=== PATIENT | male | born 1955 | race Caucasian/White ===

== ENCOUNTER → 2020-07-03 | Outpatient (CLI) | payer MEDICARE ==
[2020-07-03 11:45] LABS: HCT 42.2 % (39.0-53.0); MCH 29.3 pg (25.0-35.0); MCV 88.6 fL (80.0-100.0); Mean Platelet Volume 8.1; Platelet Count 330 k/uL (150-450); RBC 4.77 m/uL (4.30-5.90); RDW 13.8 % (11.5-15.5); WBC 14.2 k/uL (3.8-10.6)
[2020-07-03 11:55] LABS: Potassium 4.9 mmol/L (3.5-5.1)
== END | disposition home or self-care (01) ==
LOC: LABPAT 10:32
PROVIDERS: ATTEND Internal Medicine Interventional Cardiology
DX: Z01.818 Encounter for other preprocedural examination (principal); R94.39 Abnormal result of other cardiovascular function study
CPT/HCPCS: 36415; 80051; 82565; 84520; 85027

== ENCOUNTER → 2020-08-17 | Outpatient (CLI) | payer MEDICARE | END | disposition home or self-care (01) | LOC: LABWHC1 12:56 | PROVIDERS: ATTEND Internal Medicine Interventional Cardiology | DX: Z01.810 Encounter for preprocedural cardiovascular examination (principal) | CPT/HCPCS: U0003; C9803 ==

== ENCOUNTER → 2020-08-31 | Outpatient (CLI) | payer MEDICARE ==
[2020-08-31 20:01] LABS: African American GFR (CKD) 72.1 (60.0-200.0); Anion Gap 8.3 mmol/L (4.00-12.00); BUN/Creat Ratio 22.5 Ratio (12.00-20.00); Calcium 8.9 mg/dL (8.7-10.3); Carbon Dioxide 24.7 mmol/L (21.6-31.8); Non-African American GFR(CKD) 62.2 (60.0-200.0); Potassium 4.4 mmol/L (3.5-5.5)
== END | disposition home or self-care (01) ==
LOC: LABWHC1 11:19
PROVIDERS: ATTEND Internal Medicine Interventional Cardiology
DX: Z01.812 Encounter for preprocedural laboratory examination (principal); I25.118 Atherosclerotic heart disease of native coronary artery with other forms of angina pectoris
CPT/HCPCS: 80048; 36415; U0003; C9803

== ENCOUNTER → 2021-08-29 | Outpatient (CLI) | payer MEDICARE ==
[2021-08-29 18:31] LABS: HCT 34.5 % (39.6-50.0); HGB 10.7 g/dL (13.0-17.0); MCV 93.5 fL (80.0-97.0); Mean Platelet Volume 11.4 fL (9.5-12.2); NRBC Per 100 WBC 0 /100 WBCS (0.0-0.0); Platelet Count 245 X 10*3/uL (140-440); RBC 3.69 X 10*6/uL (4.40-5.60); RDW 14.2 % (11.5-14.5); WBC 8.52 X 10*3/uL (4.50-10.00)
[2021-08-29 18:35] LABS: Anion Gap 12.6 mmol/L (10.00-18.00); Blood Urea Nitrogen 21.3 mg/dL (9.0-27.0); Carbon Dioxide 21.6 mmol/L (20.0-27.5); Non-African American GFR(CKD) 66.4 (60.0-200.0)
[2021-08-30 13:15] LABS: Coronavirus SARS CoV-2 Not Detected (Not Detected)
== END | disposition home or self-care (01) ==
LOC: LABPAT 11:20
PROVIDERS: ATTEND Internal Medicine Interventional Cardiology
DX: Z01.812 Encounter for preprocedural laboratory examination (principal); I35.0 Nonrheumatic aortic (valve) stenosis; Z20.822 Contact with and (suspected) exposure to COVID-19
CPT/HCPCS: 80051; 82565; 84520; 85027; 36415; U0003; C9803; U0005

== ENCOUNTER → 2021-09-13 | Outpatient (CLI) | payer MEDICARE ==
[2021-09-13 10:30] LABS: Basophils # (A) 0.1 k/uL (0-0.2); Basophils % (A) 1 %; Eosinophils # (A) 0.3 k/uL (0-0.7); Eosinophils % (A) 4 %; HCT 36.5 % (39.0-53.0); HGB 12.2 gm/dL (13.0-17.5); Lymphocytes # (A) 1.8 k/uL (1.0-4.8); Lymphocytes % (A) 24 %; MCH 31.1 pg (25.0-35.0); MCHC 33.4 g/dL (31.0-37.0); MCV 93.2 fL (80.0-100.0); Mean Platelet Volume 8.4; Monocytes # (A) 0.4 k/uL (0-1.0); Monocytes % (A) 5 %; Neutrophils # (A) 4.8 k/uL (1.3-7.7); Neutrophils % (A) 64 %; Platelet Count 259 k/uL (150-450); RBC 3.91 m/uL (4.30-5.90); RDW 13.9 % (11.5-15.5); WBC 7.5 k/uL (3.8-10.6)
[2021-09-13 10:34] LABS: Appearance,Urine Clear (Clear); Bilirubin,Urine Negative (Negative); Blood,Urine Negative (Negative); Color,Urine Yellow; Glucose,Urine (UA) Negative (Negative); Ketones,Urine Negative (Negative); Leukocyte Esterase,Urine Negative (Negative); Nitrite,Urine Negative (Negative); PH, Urine 5.5 (5.0-8.0); Protein,Urine Negative (Negative); Urobilinogen,Urine <2.0 mg/dL (<2.0)
[2021-09-13 10:39] LABS: INR 0.9 (<1.2); Partial Thromboplastin Time 26.2 sec (22.0-30.0); Prothrombin Time 9.9 sec (9.0-12.0)
[2021-09-13 10:42] LABS: ALT 29 U/L (4-49); AST 29 U/L (17-59); African American GFR (CKD) 73 (>60 ml/min/1.73 sqM); Albumin 4.4 g/dL (3.5-5.0); Albumin/Globulin Ratio 1.5; Alkaline Phosphatase 108 U/L (38-126); Anion Gap 7 mmol/L; Blood Urea Nitrogen 24 mg/dL (9-20); Calcium 9.4 mg/dL (8.4-10.2); Carbon Dioxide 25 mmol/L (22-30); Chloride 108 mmol/L (98-107); Glucose 98 mg/dL (74-99); Magnesium 1.6 mg/dL (1.6-2.3); Non-African American GFR(CKD) 63 (>60 ml/min/1.73 sqM); Potassium 4.6 mmol/L (3.5-5.1); Sodium 140 mmol/L (137-145); Total Bilirubin 0.6 mg/dL (0.2-1.3); Total Protein 7.4 g/dL (6.3-8.2)
--- NOTE | 2021-09-13 13:41 | US ---
EXAMINATION TYPE: US carotid duplex BILAT DATE OF EXAM: 09/13/2021 COMPARISON: NONE CLINICAL HISTORY: R55 SYNCOPE. Preop, No HTN EXAM MEASUREMENTS: RIGHT: Peak Systolic Velocity (PSV) cm/sec ----- Right CCA: 66.0 ----- Right ICA: 84.2 ----- Right ECA: 71.0 ICA/CCA ratio: 1.3 RIGHT: End Diastole cm/sec ----- Right CCA: 15.4 ----- Right ICA: 29.2 ----- Right ECA: 13.8 LEFT: Peak Systolic Velocity (PSV) cm/sec ----- Left CCA: 79.9 ----- Left ICA: 95.6 ----- Left ECA: 55.7 ICA/CCA ratio: 1.2 LEFT: End Diastole cm/sec ----- Left CCA: 16.1 ----- Left ICA: 36.1 ----- Left ECA: 11.3 VERTEBRALS (direction of flow): Right Vertebral: Antegrade Left Vertebral: Antegrade Rhythm: Normal No elevated velocities or significant stenosis. Plaque seen in left CCA and bilateral bulbs. Yosi sophie, color Doppler, spectral Doppler imaging performed of the carotid arteries. Waveform analysis do es not show significant stenosis of the internal carotid arteries. IMPRESSION: No hemodynamic significant stenosis of the proximal internal carotid arteries by Doppler criteria, an indirect measurement of carotid stenosis Criteria for Assigning % of Stenosis / Diameter reduction (Estimation based on the indirect measurements of the internal carotid artery velocities (ICA PSV). 1. Normal (no stenosis)=ICA PSV < 125 cm/s: ratio < 2.0: ICA EDV<40 cm/s. 2. Less than 50% stenosis=ICA PSV < 125 cm/s: ratio < 2.0: ICA EDV<40 cm/s. 3. 50 to 69% stenosis=ICA PSV of 125 to 230 cm/s: ration 2.0 ? 4.0: ICA EDV 40-100 cm/s. 4. Greater than 70% stenosis to near occlusion= ICA PSV > 230 cm/s: ratio > 4.0: ICA EDV > 100 cm/s. 5. Near occlusion= ICA PSV velocities may be low or undetectable: variable ratio and ICA EDV. 6. Total occlusion=unable to detect flow.
--- NOTE | 2021-09-13 13:55 | CT ---
EXAMINATION TYPE: CT TAVR Planning DATE OF EXAM: 09/13/2021 HISTORY: Nonrheumatic aortic valve insufficiency CT DLP: 2883.8 mGycm Automated Exposure Control for Dose Reduction was Utilized. CONTRAST: CT scan of the chest, abdomen and pelvis is performed with IV Contrast, patient injected with 125 mL of Isovue 370. COMPARISON: None available TECHNIQUE: Helical imaging obtained through the chest, abdomen and pelvis during arterial phase anel sharon administration of radiographic contrast intravenously. FINDINGS: See report from [facility] regarding preprocedural planning CHEST: Lower Neck and Thyroid: Prominent palatine tonsils, slightly more on the right side. Lungs: Mild COPD changes remain in the upper lobes. Central Airway: No significant findings Pleura: No significant findings Pulmonary Arteries: Measures 2.9 cm Heart and Pericardium: No gross cardiomegaly. Aortic root, thoracic aortic and coronary arterial athe rosclerotic calcifications Lymph Nodes: No pathologically enlarged lymph nodes Mediastinum & Esophagus: No significant findings ABDOMEN/PELVIS: Please note arterial phase of the imaging limits detailed evaluation of the solid abdominal organs. Liver: Questionable hepatic steatosis. Spleen: No significant findings Kidneys: Right renal hypodensities, possibly representing renal cysts. Adrenal Glands: No significant findings Pancreas: No significant findings Gallbladder: No significant findings Bowel and Mesentery: Scattered uncomplicated colonic diverticulosis. Short segments of mild colonic w all thickening, nonspecific. Lymph Nodes: No significant findings Urinary Bladder: No significant findings Pelvic Organs: No significant findings Other: Right fat-containing inguinal hernia. Minimal infiltration along the inferior aspect of the an terior abdominal wall subcutaneous fat, please correlate clinically. Extensive arterial atherosclerot ic calcifications with infrarenal abdominal aortic ectasia measuring 2.3 cm. Conventional anatomy of the aortic arch. Other Lines/Tubes/Devices/Hardware: Dental work. IMPRESSION: Presurgical planning demonstrating incidental findings as described above.
[2021-09-13 15:48] LABS: Hepatitis A Antibody IgM Nonreactive (Nonreactive); Hepatitis B Core IgM Nonreactive (Nonreactive); Hepatitis B Surface Antigen Nonreactive (Nonreactive); Hepatitis C IgG Antibody Nonreactive (Nonreactive)
[2021-09-13 16:08] LABS: Chol/HDL Ratio 4.02 Ratio
== END | disposition home or self-care (01) ==
LOC: LABWHC1 09:02
PROVIDERS: ATTEND Thoracic Surgery (Cardiothoracic Vascular Surgery)
DX: Z01.810 Encounter for preprocedural cardiovascular examination (principal); I35.1 Nonrheumatic aortic (valve) insufficiency; I65.23 Occlusion and stenosis of bilateral carotid arteries; I49.8 Other specified cardiac arrhythmias; J44.9 Chronic obstructive pulmonary disease, unspecified; E87.8 Other disorders of electrolyte and fluid balance, not elsewhere classified; E07.9 Disorder of thyroid, unspecified; E11.9 Type 2 diabetes mellitus without complications; N28.9 Disorder of kidney and ureter, unspecified; K57.30 Diverticulosis of large intestine without perforation or abscess without bleeding; R94.31 Abnormal electrocardiogram [ECG] [EKG]; R58 Hemorrhage, not elsewhere classified; R35.0 Frequency of micturition; E78.5 Hyperlipidemia, unspecified; Z79.01 Long term (current) use of anticoagulants; Z79.899 Other long term (current) drug therapy
CPT/HCPCS: 94150; 83880; 80061; 80053; 80074; 84443; 83735; 85025; 85610; 85730; 81003; 87086; 83036; 93880; 71275; 36415 ×2; 74174; 93005; Q9967

== ENCOUNTER 2021-11-29 08:00 | Inpatient (IN) | payer MEDICARE ==
[2021-12-13] MEDS ORDERED: CALCIUM CHLORIDE 100 MG/ML 10 ML SYRINGE IV ONE (05:00)
[2021-12-13] MEDS ORDERED: PHENYLEPHRINE 10 MG/ML VIAL IV ONE (05:00)
[2021-12-13] MEDS ORDERED: ALBUMIN HUMAN 5% 500 ML IVPB ONE (05:00)
[2021-12-13] MEDS ORDERED: PROTAMINE SULFATE 10 MG/ML 25 ML VIAL IV ONE (05:00)
[2021-12-13] MEDS ORDERED: ASPIRIN 325 MG TAB PO ONE (05:00)
[2021-12-13] MEDS ORDERED: NITROGLYCERIN-D5W PMX 25 MG/250 ML BTL IV ONE (05:00)
[2021-12-13] MEDS ORDERED: INSULIN REGULAR 100 UNIT in SODIUM CHLORIDE 0.9% 100 ML IV ONE (05:00)
[2021-12-13] MEDS ORDERED: ELECTROLYTE-A SOLUTION 1,000 ML with POTASSIUM CHLORIDE 40 MEQ, MAGNESIUM SULFATE 16 ME... IV ONE ×5 (05:00)
[2021-12-13] MEDS ORDERED: ELECTROLYTE-A SOLUTION 1,000 ML with POTASSIUM CHLORIDE 100 MEQ, MAGNESIUM SULFATE 16 M... IV ONE ×5 (05:00)
[2021-12-13] MEDS ORDERED: ALBUMIN HUMAN 25% 50 ML IV ONE (05:00)
[2021-12-13] MEDS ORDERED: TRANEXAMIC ACID 2,000 MG in SODIUM CHLORIDE 0.9% 80 ML IV ONE ×4 (05:00)
[2021-12-13] MEDS ORDERED: NITROGLYCERIN SL TABS 0.4 MG TAB SUBLINGUAL ONE (05:00)
[2021-12-13] MEDS ORDERED: MANNITOL 25% 12.5 GM/50 ML VIAL IV ONE (05:00)
[2021-12-13] MEDS ORDERED: ATORVASTATIN 10 MG TAB PO ONE (05:00)
[2021-12-13] MEDS ORDERED: NITROGLYCERIN-D5W PMX 50 MG in DEXTROSE/WATER 1 250ML.BAG IV ONE (05:00)
[2021-12-13] MEDS ORDERED: METOPROLOL TARTRATE 12.5 MG TAB PO ONE (05:00)
[2021-12-13] MEDS ORDERED: HEPARIN SODIUM,PORCINE 5,000 UNIT in SODIUM CHLORIDE 0.9% 500 ML 500 ML IV ONE (05:00)
[2021-12-13] MEDS ORDERED: PAPAVERINE 360 MG in SODIUM CHLORIDE 0.9% 90 ML IV ONE (05:00)
[2021-12-13] MEDS ORDERED: SODIUM BICARB 8.4% 50 ML SYR (1 MEQ/ML) IV ONE (05:00)
[2021-12-13] MEDS ORDERED: LACTATED RINGERS 1,000 ML IV ONE (05:00)
[2021-12-13] MEDS ORDERED: PROTAMINE SULFATE 250 MG in EMPTY BAG 1 BAG IV ONE (05:00)
[2021-12-13] MEDS ORDERED: ceFAZolin 1,000 MG in SODIUM CHLORIDE 0.9% IRRIGATIO 1,000 ML IRRIGATION ONE (05:00)
[2021-12-13] MEDS ORDERED: propofoL 1,000 MG/100 ML VIAL IV ONE (05:00)
[2021-12-13] MEDS ORDERED: PHENYLEPHRINE 40 MG in SODIUM CHLORIDE 0.9% 250 ML IV ONE (05:00)
[2021-12-13] MEDS ORDERED: HEPARIN SODIUM 1,000 UN/ML (10ML VL) IV ONE (05:00)
[2021-12-13] MEDS ORDERED: CLEVIDIPINE BUTYRATE 25 MG in EMPTY BAG 1 BAG IV ONE (05:00)
[2021-12-13] MEDS ORDERED: MAGNESIUM SULFATE 16.24 MEQ in EMPTY SYRINGE 1 SYR IV ONE (05:00)
[2021-12-13] MEDS ORDERED: SODIUM CHLORIDE 0.9% 1,000 ML IV ONE (05:00)
[2021-12-13] MEDS ORDERED: CHLORHEXIDINE GLUCONATE 15 ML CUP MUCOUS MEM ONE (05:00)
[2021-12-13] MEDS ORDERED: NOREPINEPHRINE 4 MG in SODIUM CHLORIDE 0.9% 250 ML IV ONE (05:00)
[2021-12-13 06:36] LABS: Glucose,Whole Blood 143 mg/dL (75-99)
[2021-12-13] MEDS ORDERED: TRANEXAMIC ACID IN NACL,ISO-OS 1,000 MG/100 ML BAG ONE (07:44)
[2021-12-13] MEDS ORDERED: ceFAZolin 1,000 MG VIAL ONE (07:44)
[2021-12-13] MEDS ORDERED: ALBUMIN HUMAN 5% (25gm) 500 ML VIAL IVPB ONE (07:44)
[2021-12-13] MEDS ORDERED: SUCCINYLCHOLINE CHLORIDE 100 MG/5 ML SYR IV ONE (07:44)
[2021-12-13] MEDS ORDERED: MIDAZOLAM HCL 10 MG/10 ML VIAL ONE (07:44)
[2021-12-13] MEDS ORDERED: VECURONIUM 10 MG VIAL IV ONE (07:44)
[2021-12-13] MEDS ORDERED: MAGNESIUM SULFATE 4 MEQ/ML 10ML VIAL ONE (07:44)
[2021-12-13] MEDS ORDERED: HEPARIN SODIUM,PORCINE 10,000 UNIT/ML 1 ML VIAL ONE (07:44)
[2021-12-13] MEDS ORDERED: ELECTROLYTE-R (PH 7.4) 1,000 ML IV.SOLN IV ONE (07:44)
[2021-12-13] MEDS ORDERED: SODIUM CHLORIDE 0.9% IRRIG 1,000 ML BTL IRRIGATION ONE (07:44)
[2021-12-13] MEDS ORDERED: LIDOCAINE 2% SYG (PF) 100 MG/5 ML ONE (07:44)
[2021-12-13] MEDS ORDERED: SODIUM CHLORIDE 0.9% 100 ML BAG ONE (07:44)
[2021-12-13] MEDS ORDERED: PROPOFOL 10 MG/ML 20 ML VIAL IV ONE (07:44)
[2021-12-13] MEDS ORDERED: fentaNYL (PF) 50 MCG/ML 50 ML VIAL ONE (07:44)
[2021-12-13 08:27] LABS: ABG Base Excess 1.1 mmol/L; ABG Glucose Whole Blood 111 mg/dL (75-99); ABG HCO3 28 mmol/L (21-25); ABG Hematocrit 31 % (34.0-46.0); ABG Ionized Calcium 4.9 mg/dL (4.5-5.3); ABG Lactic Acid Whole Blood 1.5 mmol/L (0.5-1.6); ABG Oxygen Saturation 99.7 % (94-97); ABG PCO2 51 mmHg (35-45); ABG PH 7.34 (7.35-7.45); ABG PO2 278 mmHg (83-108); ABG Sodium Whole Blood 142 mmol/L (135-146); ABG TCO2 29 mmol/L (19-24); Allen Test Performed? Yes
[2021-12-13 09:32] LABS: ABG Base Excess -3.4 mmol/L; ABG Glucose Whole Blood 90 mg/dL (75-99); ABG HCO3 22 mmol/L (21-25); ABG Hematocrit 25 % (34.0-46.0); ABG Ionized Calcium 4.1 mg/dL (4.5-5.3); ABG Lactic Acid Whole Blood 1.1 mmol/L (0.5-1.6); ABG Oxygen Saturation 99.7 % (94-97); ABG PCO2 38 mmHg (35-45); ABG PH 7.37 (7.35-7.45); ABG PO2 287 mmHg (83-108); ABG Potassium Whole Blood 3.9 mmol/L (3.4-4.5); ABG Sodium Whole Blood 143 mmol/L (135-146); ABG TCO2 23 mmol/L (19-24); Allen Test Performed? Yes
[2021-12-13 09:37] LABS: ABG Base Excess 1.3 mmol/L; ABG Glucose Whole Blood 110 mg/dL (75-99); ABG HCO3 27 mmol/L (21-25); ABG Hematocrit 30 % (34.0-46.0); ABG Ionized Calcium 4.8 mg/dL (4.5-5.3); ABG Lactic Acid Whole Blood 1.3 mmol/L (0.5-1.6); ABG PCO2 48 mmHg (35-45); ABG PH 7.36 (7.35-7.45); ABG PO2 340 mmHg (83-108); ABG Potassium Whole Blood 4.9 mmol/L (3.4-4.5); ABG Sodium Whole Blood 141 mmol/L (135-146); ABG TCO2 29 mmol/L (19-24); Allen Test Performed? Yes
[2021-12-13 10:05] LABS: ABG Base Excess -0.4 mmol/L; ABG Glucose Whole Blood 128 mg/dL (75-99); ABG HCO3 26 mmol/L (21-25); ABG Hematocrit 25 % (34.0-46.0); ABG Ionized Calcium 4.3 mg/dL (4.5-5.3); ABG Lactic Acid Whole Blood 1.2 mmol/L (0.5-1.6); ABG Oxygen Saturation 99.4 % (94-97); ABG PCO2 50 mmHg (35-45); ABG PH 7.32 (7.35-7.45); ABG PO2 189 mmHg (83-108); ABG Potassium Whole Blood 5.5 mmol/L (3.4-4.5); ABG Sodium Whole Blood 138 mmol/L (135-146); ABG TCO2 27 mmol/L (19-24); Allen Test Performed? Yes
[2021-12-13] MEDS: SODIUM CHLORIDE 0.9% 1,000 ML IV SCH (13:09)
[2021-12-13] MEDS: ALBUMIN HUMAN 5% 250 ML in EMPTY BAG 1 BAG IVPB PRN ×2 (13:20→14:13)
[2021-12-13] MEDS: INSULIN REGULAR 100 UNIT in SODIUM CHLORIDE 0.9% 100 ML IV SCH (13:30)
[2021-12-13] MEDS: IPRATROPIUM-ALBUTEROL 3 ML NEB INHALATION SCH ×2 (14:30→20:00)
--- NOTE | 2021-12-13 14:46 | OP ---
OPERATIVE REPORT DATE OF THE SURGERY: 12/13/2021. SURGEON: Dr. Tawana Mathis. TESTER VIBRATOR EQUIPMENT: Robert Freedman, Nurse practitioner, and Yvonne GOETZ. PREOPERATIVE DIAGNOSES: Severe aortic valve stenosis, obesity, hypertension, hyperlipidemia, obstructive sleep apnea, status post PCI stenting for a MASS [employer] INSTRUCTOR of the LAD at [facility] last year. 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 PROCEDURE: 1. Aortic valve replacement using a 23 mm Inspirus pericardial bioprosthesis. 2. Exclusion of the left atrial appendage using a 35 mm AtriClip. 3. Sternal closure with pineal cable and tritium plating system. 4. Intraoperative transesophageal echocardiogram and epiaortic scanning. INDICATION FOR SURGERY: Patient is a 66-year-old gentleman who was worked up in our structural [facility] for potential TAVR. However, in view of his age, decision was made to proceed with a surgical aortic valve replacement. He is status post PCI for a complete total occlusion of his LAD at [facility] last year with partial recanalization of the proximal two thirds of the LAD with occluded distal one third. There has been no plan to bypass that distal LAD. The rest of the vessels are patent. The SDS risk was discussed with him. He understood it and agreed to proceed. DESCRIPTION OF THE PROCEDURE: The patient in supine position. Right internal jugular Wheat[place]-Miles catheter and right radial arterial line were placed. The patient had normal PA pressure and good cardiac index. Subsequently he was brought to the operating room where general endotracheal anesthesia was induced uneventfully. A Luna catheter was inserted. The chest, abdomen and both lower extremities were prepped and draped using ChloraPrep. Ioban was used to cover the skin. Patient received 2 g of cefazolin intravenously. Preoperative transesophageal echocardiogram confirmed the preoperative finding of severe trileaflet aortic valve stenosis with mild mitral valve regurgitation and preserved left ventricular function. A midline sternotomy was performed and no bone wax was used. The bone was profusely bleeding. To mention that the patient stopped his Plavix 5 days ago. I made a small breach in the right pleura at the end of the case and the right pleura was not drained. The left pleura remained intact. The Ankeney retractor was used. Mediastinal fat was transected between 2 ties and epiaortic scanning revealed no protruding atheroma in the ascending aorta. Pericardium was opened in an inverted T- fashion and a pericardial cradle was created. Findings included a soft aorta and a normal-sized heart. After systemic heparinization after placement of respective pledgeted pursing aortic cannulation of the proximal arch with a 21-Citizen [place] soft flow cannula and venous cannulation via the right atrial appendage with a double stage 29/37-Citizen [place] cannula was performed. Antegrade as well as retrograde cardioplegia catheter were placed. Cardiopulmonary bypass was initiated and with the heart empty, we looked at the left atrial appendage, which would be excluded. The LAD was felt and the stent was felt all the way to its distal one third and lead to a thinned out apex. Aorta was clamped and during aortic clamping, myocardial protection was achieved with initial dose of 1 L of antegrade cold blood cardioplegia followed by 300 mL of retrograde cold blood cardioplegia. All subsequent doses were given retrograde at 15- 20 minutes interval. Last dose was 1 L of warm blood given via the retrograde route as we were closing the aorta. We started by excluding the left atrial appendage by deploying a 35 mm AtriClip at its base. Subsequently, the aorta was opened in a transverse fashion just above the sinotubular junction. Exploration revealed a heavily calcified trileaflet aortic valve. There was calcium in the right coronary sinus to the left and above the right coronary ostium. That was left intact. The aortic valve was excised and the anulus nicely debrided to a pliable anulus. Thorough irrigation of around 700 mL of cold saline followed. Subsequently, a total of 16 sutures of pledgeted Tycron 2-0 placed in a horizontal mattress fashion with the pledgets on the ventricular side were placed all along the perimeter of the anulus. The valve was sized at this point at a 23 mm Inspiris bioprosthesis. The sutures were passed into the aortic valve prosthesis cuff and the valve was seated nicely in a supra-annular position. The needles were cut and the suture tied using the core knot device. Thorough irrigation performed 1 more time. Both coronary ostia were clear. Looking under the valve, it appeared to be nice with no subvalvular protruding tissue. With that, rewarming was started as we closed the aortotomy in 2 layers using 4- 0 Prolene buttressed on each corner with a pledget with the first layer in a horizontal mattress and the second layer in over- over technique. The CO2 that was flowing over the field as long as the aorta was opened was stopped at this point. The patient had been receiving 1 L of warm blood as we were closing the aorta as mentioned above. The patient was given lidocaine and magnesium. He was placed in Trendelenburg position and de-airing maneuvers were followed. With the aortic vent on maximum and the patient in Trendelenburg position, we unclamped the aorta. The patient initially had a third- degree AV block with an escape slow idioventricular rhythm. For that reason, two monopolar atrial pacing wires were affixed to the respective pursing of the right atrium and 1 bipolar ventricular pacing wire was driven via the inferior aspect of the right ventricle. There was a lot of air in the ventricle on RAD and I decided to de- air through an 18-gauge needle inserted in the apex and that was done several times through the same hole. With adequate de-airing, I closed that hole with a pledgeted 4- 0 Prolene. The patient regained actually a good conduction and after around 15-20 minutes of reperfusion, we were able to wean off cardiac bypass without the need of any inotropic or vasopressor support. RAD interrogation at this point revealed no paravalvular leak of the prosthesis and low gradient. The LV was functioning well and was adequate de-airing. With that, pump suckers were stopped. Then, test dose followed by full dose protamine was given. Decannulation followed. The venous cannulation site required reinforcement with 4-0 Prolene. Two nineteen-Citizen [place] Grayson drains were left substernally. The sinus fat was approximated over the aorta. After ensuring adequate hemostasis and hemodynamic and after correct sponge, instrument, and needle count, the sternum was closed using a [id number] pioneer cable for the manubrium followed by an X plate tritium plate affixed with 8 16 mm screws followed by a cable in the third intercostal space followed by an another X plate from the tritium system also affixed with 8 16 mm screws followed by 1 more pioneer cable. Thorough irrigation with cefazolin was performed. Subsequently, the rest of the closure proceeded in layers. Skin glue was applied. Patient did not receive any blood bank product but received 540 mL of Cell Saver blood. He was transferred to the ICU in stable condition with a cardiac index of 3, mean arterial pressure of 75. Normal rhythm and conduction with a sinus rhythm at around 74 and a PA pressure of 30/15. MMODL / IJN: [id number] / MTDD
[2021-12-13 14:55] LABS: Glucose,Whole Blood 161 mg/dL (75-99)
[2021-12-13 14:56] LABS: Glucose,Whole Blood 205 mg/dL (75-99)
[2021-12-13] MEDS ORDERED: MUPIROCIN 2% OINT 22 GM TUBE NASAL ONE (15:00)
[2021-12-13 15:14] LABS: Glucose,Whole Blood 174 mg/dL (75-99)
[2021-12-13] MEDS ORDERED: ALBUMIN HUMAN 5% 250 ML IVPB ONE (15:43)
[2021-12-13] MEDS ORDERED: SODIUM CHLORIDE 0.9% 1,000 ML IV SCH (15:45)
--- NOTE | 2021-12-13 15:50 | P.CNPUL ---
History of Present Illness Consult date: 12/13/21 Requesting physician: Tawana Mathis Reason for consult: other Chief complaint: Aortic valve stenosis History of present illness: This is a 58-year-old white male patient with past medical history of morbid obesity, diabetes mellitus, hypertension, hyperlipidemia, obstructive sleep apnea on CPAP, tobacco abuse, coronary artery disease status post LAD stenting at the [facility]. Patient had been having history of chest pain and dyspnea on exertion for the past 2-3 years. He was found to have a murmur and moderate to severe aortic valve stenosis. In addition patient was complaining of fatigue. His preop workup included a transesophageal echocardiogram and cardiac catheterization that showed preserved LV function, an estimated valve area of the aortic valve of 1 cm, and a mean gradient of 40 mmHg with moderate mitral valve regurgitation. Cardiac catheterization showed mild in-stent restenosis of the LAD, and distal LAD was 100% occluded. Patient was initially considered for transcatheter aortic valve replacement however he was found to be low surgical risk and therefore was offered surgical option for which he opted. On 12/13/2021 patient had aortic valve replacement using a 23 cm Inspirus pericardial bioprosthesis, exclusion of the left atrial appendage using a 35 mm a true clip, sternal closure with pineal cable and 3 TM plating system, and intraoperative transesophageal echocardiogram. Patient is seen in the postoperative period in the intensive care unit, he is intubated, sedated but started to emerge from anesthesia. He was initially on assist-control mode of ventilator with a rate of 12, tidal volume was 500, FiO2 100% and PEEP of 5. Postop blood gas showed pH of 7.249, pCO2 of 55.7, and pO2 of 388 and FiO2 was dropped down to 50%, we increased the rate to 22. Hemodynamically patient has been stable, he is in sinus mechanism with a rate of 77 BPM, blood pressure is 109/52, PA pressures 46/19, CVP 16, cardiac output is 7.2, and cardiac index is 3.2 with a CVP of 16-18. Currently has 0.9 normal saline at a rate of 50 ML per hour, Diprivan is at 20 mics per kilo per minute, and insulin at 60 units per hour. Patient has 2 mediastinal chest tubes in place with 70 mL of serosanguineous output, no evidence of air leak, both chest tubes are white connected to the same Pleur-evac and connected to the oral suction. Sternum is clean dry and intact, incision is covered with surgical dressing, AV wires are in place connected to temporary pacemaker. Postoperative chest x-ray and labs are pending. Review of Systems All systems: negative Constitutional: Reports fatigue, Denies chills, Denies fever Eyes: denies blurred vision, denies pain Ears, nose, mouth and throat: Denies headache, Denies sore throat Cardiovascular: Reports dyspnea on exertion, Denies chest pain, Denies shortness of breath Respiratory: Reports dyspnea, Denies cough Gastrointestinal: Denies abdominal pain, Denies diarrhea, Denies nausea, Denies vomiting Musculoskeletal: Denies myalgias Integumentary: Denies pruritus, Denies rash Neurological: Denies numbness, Denies weakness Psychiatric: Denies anxiety, Denies depression Endocrine: Denies fatigue, Denies weight change Past Medical History Past Medical History: Diabetes Mellitus, Sleep Apnea/CPAP/BIPAP Additional Past Medical History / Comment(s): C-PAP MACHINE, SEE CARDIOLOGY H & P History of Any Multi-Drug Resistant Organisms: None Reported Past Surgical History: Heart Catheterization, Heart Catheterization With Stent, Hernia Repair Additional Past Surgical History / Comment(s): FX ARM SURGERY (CHILD)., UMBILICAL HERNIA, FOOT SURGERY FOR TORN TENDONS., STATES HEART CATH AT [facility] AND HEART CATH WITH STENTS AT [facility] (08/2020) Past Anesthesia/Blood Transfusion Reactions: No Reported Reaction Date of Last Stent Placement:: 08/2020 Smoking Status: Current every day smoker Additional Past Alcohol Use History / Comment(s): SMOKES 5 CIGARETTES/DAILY- TRYING TO QUIT, HX OF SMOKING OFF AND ON - Past Family History Mother Family Medical History: No Reported History Additional Family Medical History / Comment(s): maternal grandmother and aunt- breast CA Medications and Allergies Home Medications Medication Instructions Recorded Confirmed Type Aspirin [Adult Low Dose Aspirin EC] 81 mg PO DAILY 08/30/21 12/11/21 History Atorvastatin [Lipitor] 80 mg PO DAILY 08/30/21 12/11/21 History Clopidogrel [Plavix] 75 mg PO DAILY 08/30/21 12/11/21 History FLUoxetine HCL [PROzac] 10 mg PO QAM 08/30/21 12/11/21 History Furosemide [Lasix] 40 mg PO DAILY 08/30/21 12/11/21 History Insulin Aspart [NovoLOG Flexpen] 10 units SQ TID-W/MEALS PRN 08/30/21 12/11/21 History Insulin Glargine,Hum.rec.anlog 45 unit SQ QAM 08/30/21 12/11/21 History [Basaglar Kwikpen U-100] Lisinopril [Prinivil] 10 mg PO BID 08/30/21 12/11/21 History Metoprolol Tartrate 25 mg PO DAILY 08/30/21 12/11/21 History Multivit-Min/FA/Lycopen/Lutein 1 each PO DAILY 08/30/21 12/11/21 History [Centrum Silver Tablet] metFORMIN HCL [Glucophage] 1,000 mg PO BID 08/30/21 12/11/21 History Albuterol Inhaler [Ventolin Hfa 2 puff INHALATION RT-QID PRN 11/22/21 12/11/21 History Inhaler] Mupirocin [Mupirocin 2%] 1 applic NASAL BID #1 tub 12/05/21 12/11/21 Rx Allergies Allergy/AdvReac Type Severity Reaction Status Date / Time No Known Allergies Allergy Verified 12/13/21 06:00 Physical Exam Vitals: Vital Signs Temp Pulse Pulse Resp BP BP Pulse Ox 12/13/21 14:38 12/13/21 14:37 70 22 12/13/21 14:30 74 22 12/13/21 13:56 12/13/21 13:22 12/13/21 06:38 98.2 F 61 20 115/62 130/73 96 12/13/21 06:10 98.2 F 61 20 115/62 130/73 96 FiO2 12/13/21 14:38 50 12/13/21 14:37 12/13/21 14:30 12/13/21 13:56 50 12/13/21 13:22 100 12/13/21 06:38 12/13/21 06:10 Intake and Output 12/13/21 12/13/21 12/13/21 06:59 14:59 22:59 Intake Total 52 Balance 52 Intake: IV 52 Other: Weight 111.6 kg GENERAL EXAM: Intubated, sedated, 58-year-old white male, comfortable in no apparent distress. HEAD: Normocephalic/atraumatic. EYES: Normal reaction of pupils, equal size. Conjunctiva pink, sclera white. NOSE: Clear with pink turbinates. THROAT: No erythema or exudates. NECK: No masses, no JVD, no thyroid enlargement, no adenopathy. CHEST: No chest wall deformity. Symmetrical expansion. Midsternal incision is clean dry and intact, 2 mediastinal chest tubes in place with minimal output of serosanguineous in the Pleur-evac, to wall suction, no air leak noted, AV wires in place, connected to temporary pacemaker with backup rate LUNGS: Equal air entry with no crackles, wheeze, rhonchi or dullness. CVS: Regular rate and rhythm, normal S1 and S2, no gallops, no murmurs, no rubs ABDOMEN: Soft, nontender. No hepatosplenomegaly, normal bowel sounds, no guarding or rigidity. EXTREMITIES: No clubbing, no edema, no cyanosis, 2+ pulses and upper and lower extremities. MUSCULOSKELETAL: Muscle strength and tone normal. SPINE: No scoliosis or deformity SKIN: No rashes CENTRAL NERVOUS SYSTEM: Intubated and sedated. No focal deficits, tone is normal in all 4 extremities. Results - Laboratory Findings Abnormal lab findings: Abnormal Labs 11/22/21 12/07/21 12/13/21 09:13 11:03 06:34 POC Glucose (mg/dL) 143 H Crossmatch See Detail See Detail 12/13/21 12/13/21 12/13/21 13:23 14:09 15:13 POC Glucose (mg/dL) 161 H 205 H 174 H Crossmatch Assessment and Plan Plan: Assessment: #1. Severe aortic valve stenosis, status post aortic valve replacement using a 23 mm is for his pericardial bioprosthesis, stage appendage exclusion, sternal closure, and intraoperative transesophageal echocardiogram on 12/13/2021 #2. Fatigue, shortness of breath, related to severe aortic valve stenosis and history of coronary artery disease with previous stenting of the LAD #3. Routine postoperative ventilator management #4. History of smoking, preop FEV1 was 2.27 L or 70% of predicted #5. Morbid obesity with BMI 35.3 kg/m #6. Hypertension #7. Hyperlipidemia #8. Obstructive sleep apnea on CPAP #9. History of coronary artery disease with previous stenting of the LAD Plan: Patient was seen and evaluated in the intensive care unit following his surgery Postoperative blood gas has been noted, respiratory rate has been increased to 22, FiO2 down to 50% Continue weaning FiO2, place the patient on pressure-support of 5 and CPAP of 5 when he fully awake and so follows command Hemodynamically stable, minimal chest tube drainage Not requiring any vasopressor support, no arrhythmias Continue close monitoring of hemodynamics, chest tube output, Breathing treatments every 4 hours while on the vent, and 4 times a day after extubation Incentive spirometry to the bedside GI and DVT prophylaxis per cardiac surgery Follow up labs later this evening and again in the morning and follow-up chest x-ray Still awaiting to review the films and report of the postoperative chest x-ray We'll continue to closely follow along with CT surgery I have personally seen and examined the patient, performed the documentation and the assessment and plan as written. Number of minutes spent on the visit: [15] I have personally seen and examined the patient and reviewed the documentation. I performed a joint evaluation with the nurse practitioner in this evaluation was done more than 30 minutes. I fully agree with the documentation above and the plan of care. The patient was seen in the ICU. MrYoanna ventilator changes were done. Respiratory rate was increased up to 22. We'll monitor the oxygenation and FiO2 was up to 50%. Chest x-ray was reviewed. Hemodynamically stable on low-dose pressors. This was weaned off. Output from the chest tube is minimal at this point in time. Cardiac output and index of adequate with an index of 2.9. The patient utilizes a CPAP at home. Postextubation, we'll put him on a CPAP pressure of 10 cm of water. Cardiac rhythm is sinus. Case was discussed with the cardiothoracic team. Time with Patient: Greater than 30
--- NOTE | 2021-12-13 16:01 | XR ---
AP chest x-ray HISTORY: Status post open-heart surgery Single frontal view of the chest correlated prior exam 11/22/2020 Patient is post median sternotomy, left atrial appendage clip placement. Endotracheal tube, NG tube, median sternal drain, right jugular central venous sheath and coaxial Greer-Miles catheter are overlyin g appropriate positions. No evident pneumothorax or pleural effusion. Probable subsegmental basilar a telectatic change present at the left lung base. Heart size may be accentuated by technique, rotation , may be associated of postop change. Aorta is dense. There are overlying artifacts. IMPRESSION: Postoperative findings as described.
[2021-12-13] MEDS ORDERED: Phosphorus Replacement Protoco 1 EACH MISC MISCELLANE PRN (16:03)
[2021-12-13] MEDS ORDERED: CLEVIDIPINE BUTYRATE 25 MG in EMPTY BAG 1 BAG IV SCH (16:03)
[2021-12-13] MEDS ORDERED: DEXMEDETOMIDINE/0.9% NACL(PMX) 400 MCG in EMPTY BAG 1 BAG IV SCH (16:03)
[2021-12-13] MEDS ORDERED: AMIODARONE 360 MG in DEXTROSE 5% IN WATER 200 ML IV PRN ×2 (16:03)
[2021-12-13] MEDS ORDERED: IPRATROPIUM-ALBUTEROL 3 ML NEB INHALATION PRN (16:03)
[2021-12-13] MEDS ORDERED: Potassium Replacement Protocol 1 EACH MISC MISCELLANE PRN (16:03)
[2021-12-13] MEDS ORDERED: MORPHINE SULFATE 2 MG/ML SYRINGE IVP PRN (16:03)
[2021-12-13] MEDS ORDERED: BENZOCAINE/MENTHOL LOZENG 1 EACH LOZENGE MUCOUS MEM PRN (16:03)
[2021-12-13] MEDS ORDERED: Magnesium Replacement Protocol 1 EACH MISC MISCELLANE PRN (16:03)
[2021-12-13] MEDS ORDERED: METOCLOPRAMIDE 5 MG/ML 2 ML VIAL IVP PRN (16:03)
[2021-12-13] MEDS ORDERED: ONDANSETRON 4 MG/2 ML VIAL IVP PRN (16:03)
[2021-12-13] MEDS ORDERED: CALCIUM GLUCONATE IN NACL 2 GM in SALINE 1 100ML.BAG IVPB PRN (16:03)
[2021-12-13] MEDS ORDERED: DEXTROSE 5% IN WATER 100 ML with AMIODARONE 150 MG IV PRN (16:03)
[2021-12-13] MEDS ORDERED: hydrALAZINE HCL 20 MG/ML 1 ML VIAL IVP PRN (16:03)
[2021-12-13 16:13] LABS: ABG Base Excess -7.1 mmol/L; ABG HCO3 22 mmol/L (21-25); ABG Oxygen Saturation 95.9 % (94-97); ABG PCO2 68 mmHg (35-45); ABG PO2 98 mmHg (83-108); ABG TCO2 24 mmol/L (19-24)
[2021-12-13 16:15] LABS: ABG PH 7.12 (7.35-7.45)
[2021-12-13 16:16] LABS: Glucose,Whole Blood 183 mg/dL (75-99)
[2021-12-13] MEDS: NOREPINEPHRINE 4 MG in SODIUM CHLORIDE 0.9% 250 ML IV SCH (16:25)
--- NOTE | 2021-12-13 16:33 | P.CONS ---
History of Present Illness - Reason for Consult Consult date: 12/13/21 Diabetes Requesting physician: Tawana Mathis - Chief Complaint Aortic Stenosis - History of Present Illness Patient is a 66-year-old male for history of diabetes, hypertension, dyslipidemia, FRANCISCO, tobacco abuse, coronary artery disease with a totally occluded LAD status post stenting at [facility], and severe aortic stenosis who presented for elective aortic valve replacement. Patient seen and examined at bedside. He is still sedated on vent. Following simple commands but unable to communicate further. All information is obtained from thorough record review including preoperative evaluation. Unable to obtain review of systems as patient is on mechanical ventilation. General: non toxic, moderate distress, appears at stated age Derm: warm, dry Head: atraumatic, normocephalic, symmetric Eyes: EOMI, no lid lag, anicteric sclera, pupils equal round reactive to light ENT: Nose and ears atraumatic Neck: No thyromegaly, no cervical lymphadenopathy, trachea midline, supple Mouth: no lip lesion, mucus membranes moist Cardiovascular: S1S2 reg, no murmur, positive radial tibial pulse bilateral, no edema, capillary refill less than 2 seconds Lungs:Course bs bilateral , no ronchi, no rales, no wheeze, no accessory muscle use Abdominal: soft, nontender to palpation, no guarding, no appreciable organomegaly, normal bowel sounds Ext: no gross muscle atrophy, moving all 4 extremities independently, no contractures Neuro: Breathing over vent, moving shoulders arms and legs independently. Able to squeeze hands b/l Psych: Lethargic, oriented to self, flat affect Assessment/plan: Prostatic aortic valve replacement -Management per CT surgery Anticipated postoperative ventilator use -Management per protocol care Anemia, pre op HgB 11.2 - follow CBC closely Diabetes mellitus type 2 -Metformin on hold -Continue with insulin drip - follow blood sugars - A1C 6.6 FRANCISCO -CPAP once extubated Obesity with BMI 35.3 -Structured outpatient weight loss Chronic: Hypertension Dyslipidemia Coronary artery disease status post stenting of LAD Thank you for allowing us to participate in the care of this pleasant patient. Do not hesitate to contact us with questions. Someone can be reached from the [facility] hospitalist group all hours of the day at [phone] or via [employer]. Past Medical History Past Medical History: Diabetes Mellitus, Sleep Apnea/CPAP/BIPAP Additional Past Medical History / Comment(s): C-PAP MACHINE, SEE CARDIOLOGY H & P History of Any Multi-Drug Resistant Organisms: None Reported Past Surgical History: Heart Catheterization, Heart Catheterization With Stent, Hernia Repair Additional Past Surgical History / Comment(s): FX ARM SURGERY (CHILD)., UMBILICAL HERNIA, FOOT SURGERY FOR TORN TENDONS., STATES HEART CATH AT [facility] AND HEART CATH WITH STENTS AT [facility] (08/2020) Past Anesthesia/Blood Transfusion Reactions: No Reported Reaction Date of Last Stent Placement:: 08/2020 Smoking Status: Current every day smoker Additional Past Alcohol Use History / Comment(s): SMOKES 5 CIGARETTES/DAILY- TRYING TO QUIT, HX OF SMOKING OFF AND ON - Past Family History Mother Family Medical History: No Reported History Additional Family Medical History / Comment(s): maternal grandmother and aunt- breast CA Medications and Allergies Home Medications Medication Instructions Recorded Confirmed Type Aspirin [Adult Low Dose Aspirin EC] 81 mg PO DAILY 08/30/21 12/11/21 History Atorvastatin [Lipitor] 80 mg PO DAILY 08/30/21 12/11/21 History Clopidogrel [Plavix] 75 mg PO DAILY 08/30/21 12/11/21 History FLUoxetine HCL [PROzac] 10 mg PO QAM 08/30/21 12/11/21 History Furosemide [Lasix] 40 mg PO DAILY 08/30/21 12/11/21 History Insulin Aspart [NovoLOG Flexpen] 10 units SQ TID-W/MEALS PRN 08/30/21 12/11/21 History Insulin Glargine,Hum.rec.anlog 45 unit SQ QAM 08/30/21 12/11/21 History [Basaglar Kwikpen U-100] Lisinopril [Prinivil] 10 mg PO BID 08/30/21 12/11/21 History Metoprolol Tartrate 25 mg PO DAILY 08/30/21 12/11/21 History Multivit-Min/FA/Lycopen/Lutein 1 each PO DAILY 08/30/21 12/11/21 History [Centrum Silver Tablet] metFORMIN HCL [Glucophage] 1,000 mg PO BID 08/30/21 12/11/21 History Albuterol Inhaler [Ventolin Hfa 2 puff INHALATION RT-QID PRN 11/22/21 12/11/21 History Inhaler] Mupirocin [Mupirocin 2%] 1 applic NASAL BID #1 tub 12/05/21 12/11/21 Rx Allergies Allergy/AdvReac Type Severity Reaction Status Date / Time No Known Allergies Allergy Verified 12/13/21 06:00 Physical Exam Osteopathic Statement: *. No significant issues noted on an osteopathic structural exam other than those noted in the History and Physical/Consult. Vitals: Vital Signs Temp Pulse Pulse Resp BP BP Pulse Ox 12/13/21 14:38 12/13/21 14:37 70 22 12/13/21 14:30 74 22 12/13/21 13:56 12/13/21 13:22 12/13/21 06:38 98.2 F 61 20 115/62 130/73 96 12/13/21 06:10 98.2 F 61 20 115/62 130/73 96 FiO2 12/13/21 14:38 50 12/13/21 14:37 12/13/21 14:30 12/13/21 13:56 50 12/13/21 13:22 100 12/13/21 06:38 12/13/21 06:10 Intake and Output 12/13/21 12/13/21 12/13/21 06:59 14:59 22:59 Intake Total 52 Balance 52 Intake: IV 52 Other: Weight 111.6 kg Results Labs: Abnormal Lab Results - Last 24 Hours (Table) 12/07/21 12/13/21 12/13/21 Range/Units 11:03 06:34 13:23 ABG pH (7.35-7.45) ABG pCO2 (35-45) mmHg POC Glucose (mg/dL) 143 H 161 H (75-99) mg/dL Crossmatch See Detail 12/13/21 12/13/21 12/13/21 Range/Units 14:09 15:13 16:11 ABG pH 7.12 L* (7.35-7.45) ABG pCO2 68 H (35-45) mmHg POC Glucose (mg/dL) 205 H 174 H (75-99) mg/dL Crossmatch 12/13/21 Range/Units 16:15 ABG pH (7.35-7.45) ABG pCO2 (35-45) mmHg POC Glucose (mg/dL) 183 H (75-99) mg/dL Crossmatch
[2021-12-13 16:48] LABS: ABG HCO3 24 mmol/L (21-25); ABG PCO2 56 mmHg (35-45); ABG PH 7.25 (7.35-7.45); ABG PO2 368 mmHg (83-108); ABG TCO2 26 mmol/L (19-24)
[2021-12-13 16:49] LABS: ABG Base Excess -2.9 mmol/L
[2021-12-13 17:07] LABS: Glucose,Whole Blood 163 mg/dL (75-99)
[2021-12-13 17:08] LABS: ABG Base Excess -5.3 mmol/L; ABG HCO3 23 mmol/L (21-25); ABG Oxygen Saturation 98.8 % (94-97); ABG PCO2 59 mmHg (35-45); ABG PO2 214 mmHg (83-108); ABG TCO2 25 mmol/L (19-24)
[2021-12-13] MEDS: ACETAMINOPHEN IV (For NPO) 1,000 MG in EMPTY BAG 1 BAG IVPB SCH (17:24)
[2021-12-13] MEDS: KETOROLAC 15 MG/ML 1 ML VIAL IVP SCH ×2 (17:25→22:59)
[2021-12-13] MEDS: HEPARIN SODIUM,PORCINE/PF 5,000 UNIT/0.5 ML SYRINGE SQ SCH ×2 (17:27→22:59)
[2021-12-13 17:32] LABS: Basophils % (A) 0 %; Eosinophils % (A) 0 %; Hypochromasia Slight; Lymphocytes # (A) 1.3 k/uL (1.0-4.8); Lymphocytes % (A) 12 %; MCH 28.7 pg (25.0-35.0); MCV 92.5 fL (80.0-100.0); Mean Platelet Volume 10.2; Monocytes # (A) 0.6 k/uL (0-1.0); Monocytes % (A) 5 %; Neutrophils # (A) 8.6 k/uL (1.3-7.7); Neutrophils % (A) 80 %; Platelet Count 186 k/uL (150-450); RBC 2.11 m/uL (4.30-5.90); WBC 10.7 k/uL (3.8-10.6)
[2021-12-13 17:34] LABS: HCT 19.5 % (39.0-53.0); HGB 6.1 gm/dL (13.0-17.5)
[2021-12-13 18:04] LABS: ABG Base Excess -4.3 mmol/L; ABG HCO3 22 mmol/L (21-25); ABG Oxygen Saturation 98.6 % (94-97); ABG PCO2 48 mmHg (35-45); ABG PH 7.28 (7.35-7.45); ABG PO2 152 mmHg (83-108); ABG TCO2 24 mmol/L (19-24)
[2021-12-13 18:11] LABS: INR 1.1 (<1.2); Partial Thromboplastin Time 33.2 sec (22.0-30.0); Prothrombin Time 11.9 sec (9.0-12.0)
[2021-12-13] MEDS ORDERED: SODIUM BICARB 8.4% 50 ML SYR (1 MEQ/ML) IV STA ×2 (18:12→19:17)
[2021-12-13 18:14] LABS: Ionized Calcium 4.4 mg/dL (4.5-5.3)
[2021-12-13 18:15] LABS: ALT 15 U/L (4-49); AST 30 U/L (17-59); African American GFR (CKD) >90 (>60 ml/min/1.73 sqM); Albumin 3.7 g/dL (3.5-5.0); Alkaline Phosphatase 60 U/L (38-126); Anion Gap 6 mmol/L; Blood Urea Nitrogen 14 mg/dL (9-20); Calcium 7.1 mg/dL (8.4-10.2); Carbon Dioxide 24 mmol/L (22-30); Chloride 108 mmol/L (98-107); Glucose 139 mg/dL (74-99); Non-African American GFR(CKD) 82 (>60 ml/min/1.73 sqM); Potassium 5.1 mmol/L (3.5-5.1); Sodium 138 mmol/L (137-145); Total Bilirubin 0.2 mg/dL (0.2-1.3); Total Protein 5.3 g/dL (6.3-8.2)
[2021-12-13 18:18] LABS: Basophils % (A) 0 %; Eosinophils # (A) 0.2 k/uL (0-0.7); Eosinophils % (A) 2 %; HCT 23.3 % (39.0-53.0); HGB 7.4 gm/dL (13.0-17.5); Hypochromasia Slight; Lymphocytes # (A) 2.1 k/uL (1.0-4.8); Lymphocytes % (A) 18 %; MCH 29.5 pg (25.0-35.0); MCHC 31.9 g/dL (31.0-37.0); MCV 92.5 fL (80.0-100.0); Mean Platelet Volume 8.1; Monocytes # (A) 0.6 k/uL (0-1.0); Monocytes % (A) 5 %; Neutrophils # (A) 8.2 k/uL (1.3-7.7); Neutrophils % (A) 72 %; Platelet Count 185 k/uL (150-450); RBC 2.52 m/uL (4.30-5.90); RDW 14.9 % (11.5-15.5); WBC 11.3 k/uL (3.8-10.6)
[2021-12-13 18:20] LABS: Glucose,Whole Blood 132 mg/dL (75-99)
[2021-12-13 19:02] LABS: Glucose,Whole Blood 130 mg/dL (75-99)
[2021-12-13 19:49] LABS: Allen Test Performed? Yes
[2021-12-13 19:49] LABS: Allen Test Performed? Yes
[2021-12-13 19:50] LABS: ABG Base Excess -0.2 mmol/L; ABG Glucose Whole Blood 136 mg/dL (75-99); ABG HCO3 26 mmol/L (21-25); ABG Hematocrit 25 % (34.0-46.0); ABG Ionized Calcium 4.3 mg/dL (4.5-5.3); ABG Lactic Acid Whole Blood 1.2 mmol/L (0.5-1.6); ABG Oxygen Saturation 99.9 % (94-97); ABG PCO2 46 mmHg (35-45); ABG PH 7.35 (7.35-7.45); ABG PO2 377 mmHg (83-108); ABG Potassium Whole Blood 5.2 mmol/L (3.4-4.5); ABG Sodium Whole Blood 139 mmol/L (135-146); ABG TCO2 27 mmol/L (19-24)
[2021-12-13 19:50] LABS: Basophils % (A) 0 %; Eosinophils % (A) 0 %; Lymphocytes % (A) 10 %; MCH 29.7 pg (25.0-35.0); MCHC 32.5 g/dL (31.0-37.0); MCV 91.5 fL (80.0-100.0); Mean Platelet Volume 8.1; Monocytes # (A) 0.7 k/uL (0-1.0); Monocytes % (A) 7 %; Neutrophils # (A) 8.4 k/uL (1.3-7.7); Neutrophils % (A) 81 %; Platelet Count 185 k/uL (150-450); RDW 15.1 % (11.5-15.5); WBC 10.3 k/uL (3.8-10.6)
[2021-12-13 19:51] LABS: Allen Test Performed? Yes
[2021-12-13 19:51] LABS: ABG Base Excess 0.2 mmol/L; ABG Glucose Whole Blood 154 mg/dL (75-99); ABG HCO3 26 mmol/L (21-25); ABG Hematocrit 25 % (34.0-46.0); ABG Ionized Calcium 4.2 mg/dL (4.5-5.3); ABG Lactic Acid Whole Blood 1.3 mmol/L (0.5-1.6); ABG Oxygen Saturation 99.7 % (94-97); ABG PCO2 45 mmHg (35-45); ABG PH 7.37 (7.35-7.45); ABG PO2 277 mmHg (83-108); ABG Potassium Whole Blood 5.8 mmol/L (3.4-4.5); ABG Sodium Whole Blood 138 mmol/L (135-146); ABG TCO2 27 mmol/L (19-24)
[2021-12-13 19:54] LABS: ABG HCO3 25 mmol/L (21-25); ABG Oxygen Saturation 99.9 % (94-97); ABG PCO2 41 mmHg (35-45); ABG PO2 339 mmHg (83-108); ABG TCO2 26 mmol/L (19-24)
[2021-12-13 19:55] LABS: ABG Glucose Whole Blood 172 mg/dL (75-99); ABG Hematocrit 23 % (34.0-46.0); ABG Lactic Acid Whole Blood 1.9 mmol/L (0.5-1.6); ABG Potassium Whole Blood 5.7 mmol/L (3.4-4.5); ABG Sodium Whole Blood 138 mmol/L (135-146)
[2021-12-13 19:55] LABS: HCT 18.3 % (39.0-53.0); HGB 5.9 gm/dL (13.0-17.5)
[2021-12-13] MEDS ORDERED: traMADol 50 MG TAB PO STA (20:03)
[2021-12-13 20:13] LABS: Glucose,Whole Blood 129 mg/dL (75-99)
[2021-12-13 20:18] LABS: ABG Base Excess -1.8 mmol/L; ABG Glucose Whole Blood 149 mg/dL (75-99); ABG HCO3 26 mmol/L (21-25); ABG Lactic Acid Whole Blood 1.7 mmol/L (0.5-1.6); ABG Oxygen Saturation 94.4 % (94-97); ABG PCO2 66 mmHg (35-45); ABG PH 7.21 (7.35-7.45); ABG PO2 80 mmHg (83-108); ABG Potassium Whole Blood 5.1 mmol/L (3.4-4.5); ABG Sodium Whole Blood 140 mmol/L (135-146); ABG TCO2 28 mmol/L (19-24)
[2021-12-13 20:19] LABS: ABG Hematocrit 24 % (34.0-46.0); ABG Ionized Calcium 4.4 mg/dL (4.5-5.3)
[2021-12-13 20:20] LABS: Allen Test Performed? Yes
[2021-12-13 20:21] LABS: ABG Base Excess -2.6 mmol/L; ABG Glucose Whole Blood 153 mg/dL (75-99); ABG HCO3 22 mmol/L (21-25); ABG Hematocrit 24 % (34.0-46.0); ABG Lactic Acid Whole Blood 1.4 mmol/L (0.5-1.6); ABG Oxygen Saturation 99.9 % (94-97); ABG PCO2 57 mmHg (35-45); ABG PH 7.25 (7.35-7.45); ABG PO2 360 mmHg (83-108); ABG Potassium Whole Blood 5.1 mmol/L (3.4-4.5); ABG Sodium Whole Blood 141 mmol/L (135-146); ABG TCO2 27 mmol/L (19-24)
[2021-12-13 20:22] LABS: ABG Ionized Calcium 4.3 mg/dL (4.5-5.3)
[2021-12-13 20:59] LABS: Glucose,Whole Blood 137 mg/dL (75-99)
[2021-12-13] MEDS ORDERED: CALCIUM GLUCONATE IN NACL 1 GM in SALINE 1 100ML.BAG IVPB ONE (21:30)
[2021-12-13 21:54] LABS: Glucose,Whole Blood 130 mg/dL (75-99)
[2021-12-13] MEDS ORDERED: AMIODARONE 450 MG in DEXTROSE 5% IN WATER 250 ML IV PRN ×2 (22:00)
[2021-12-13 23:05] LABS: Glucose,Whole Blood 125 mg/dL (75-99)
[2021-12-14 00:07] LABS: Glucose,Whole Blood 117 mg/dL (75-99)
[2021-12-14] MEDS: ACETAMINOPHEN IV (For NPO) 1,000 MG in EMPTY BAG 1 BAG IVPB SCH (00:14)
[2021-12-14 01:01] LABS: Glucose,Whole Blood 108 mg/dL (75-99)
[2021-12-14 02:12] LABS: Glucose,Whole Blood 131 mg/dL (75-99)
[2021-12-14 02:27] LABS: HCT 20.5 % (39.0-53.0); MCH 29.2 pg (25.0-35.0); MCHC 32.4 g/dL (31.0-37.0); MCV 89.9 fL (80.0-100.0); Platelet Count 126 k/uL (150-450); RBC 2.28 m/uL (4.30-5.90); RDW 14.8 % (11.5-15.5); WBC 7.4 k/uL (3.8-10.6)
[2021-12-14 02:30] LABS: HGB 6.7 gm/dL (13.0-17.5)
[2021-12-14 03:16] LABS: Glucose,Whole Blood 126 mg/dL (75-99)
[2021-12-14] MEDS ORDERED: HYDROcodone/APAP 5-325MG 1 EACH TAB PO PRN ×2 (03:45)
[2021-12-14 04:04] LABS: Glucose,Whole Blood 117 mg/dL (75-99)
[2021-12-14] MEDS: NOREPINEPHRINE 4 MG in SODIUM CHLORIDE 0.9% 250 ML IV SCH (04:10)
[2021-12-14 05:05] LABS: Ionized Calcium 4.4 mg/dL (4.5-5.3)
[2021-12-14 05:05] LABS: Glucose,Whole Blood 133 mg/dL (75-99)
[2021-12-14] MEDS: ALBUMIN HUMAN 5% 250 ML in EMPTY BAG 1 BAG IVPB PRN (05:14)
[2021-12-14 05:16] LABS: Albumin 3.5 g/dL (3.5-5.0); Magnesium 2.2 mg/dL (1.6-2.3); Potassium 5.1 mmol/L (3.5-5.1); Total Bilirubin 0.4 mg/dL (0.2-1.3); Total Protein 5.2 g/dL (6.3-8.2)
[2021-12-14] MEDS: KETOROLAC 15 MG/ML 1 ML VIAL IVP SCH (05:46)
[2021-12-14 05:56] LABS: Glucose,Whole Blood 126 mg/dL (75-99)
[2021-12-14 06:50] LABS: Glucose,Whole Blood 120 mg/dL (75-99)
[2021-12-14 07:17] LABS: Basophils % (A) 0 %; Eosinophils % (A) 0 %; HGB 7.4 gm/dL (13.0-17.5); Lymphocytes # (A) 0.9 k/uL (1.0-4.8); Lymphocytes % (A) 14 %; MCH 28.9 pg (25.0-35.0); MCHC 32.1 g/dL (31.0-37.0); MCV 90.1 fL (80.0-100.0); Monocytes # (A) 0.5 k/uL (0-1.0); Monocytes % (A) 8 %; Neutrophils # (A) 4.9 k/uL (1.3-7.7); Neutrophils % (A) 75 %; Platelet Count 120 k/uL (150-450); RBC 2.55 m/uL (4.30-5.90); RDW 14.9 % (11.5-15.5); WBC 6.5 k/uL (3.8-10.6)
[2021-12-14] MEDS ORDERED: HYDROcodone/APAP 10-325MG 1 EACH TAB PO PRN (07:22)
--- NOTE | 2021-12-14 07:33 | XR ---
EXAMINATION TYPE: XR chest 1V portable DATE OF EXAM: 12/14/2021 COMPARISON: Chest x-ray 12/13/2021 HISTORY: Postop cardiac surgery TECHNIQUE: Single frontal view of the chest is obtained. FINDINGS: Endotracheal tube and NG tube have been removed. Central venous catheter remains in place, distal tip overlying the pulmonary artery. Patient is post median sternotomy and left atrial appenda ge clip placement. Median sternal drain is in place. Heart remains enlarged. No evident pneumothorax. There are overlying artifacts. Central vascularity is prominent, patchy bibasilar densities noted. IMPRESSION: There may be basilar atelectasis, difficult to exclude edema, effusion, volume overload. Persistent cardiomegaly. Additional follow-up is recommended. Interval extubation.
[2021-12-14 08:09] LABS: Glucose,Whole Blood 205 mg/dL (75-99)
[2021-12-14] MEDS: INSULIN REGULAR 100 UNIT in SODIUM CHLORIDE 0.9% 100 ML IV SCH (08:15)
--- NOTE | 2021-12-14 08:28 | P.PN ---
Subjective Progress Note Date: 12/14/21 Principal diagnosis: Severe aortic valve stenosis, CAD status post PCI stenting for [employer] of the [facility] at [facility] 2020, hypertension, hyperlipidemia, obesity, obstructive sleep apnea, insulin-dependent diabetes, previous tobacco dependence, mild COPD. Vaccinated against Covid. POD #1 aortic valve replacement using a 23 mm Inspiris pericardial bioprosthesis, exclusion of left atrial appendage using a 35 mm AtriClip, sternal closure with pineal cable and Tritium plating system, intraoperative transesophageal echocardiogram and epi-aortic scanning Postoperative acute blood loss anemia and thrombocytopenia, expected given the hemodilution and cardiopulmonary bypass pump The patient was seen and examined this morning sitting up in a recliner in the intensive care unit in no acute distress. He was successfully extubated last night at 1632. Remains in sinus rhythm, hemodynamically stable although on a minimal dose of levo. He did receive 2 units packed red blood cells yesterday for hemoglobin 5.9, 6.7 this morning. The patient had a couple of episodes of cough syncope last night. Currently on 3 L nasal cannula with oxygen saturation in the mid 90s, attempting incentive spirometry but with poor effort, only achieving a little over 500 mL. Right internal jugular Vallejo/Cordis, left radial arterial line, mediastinal chest tubes all remain. Patient asking for more pain medication, would like us to give him something to knock him out. Objective - Vital Signs Vital signs: Vital Signs Temp 37.3 F L 12/14/21 05:27 Pulse 67 12/14/21 07:00 Resp 21 12/14/21 07:00 BP 95/52 12/14/21 06:45 Pulse Ox 96 12/14/21 07:00 FiO2 40 12/14/21 04:00 Intake & Output 12/13/21 12/14/21 12/14/21 18:59 06:59 18:59 Intake Total 3659.437 5048.347 Output Total 490 589 Balance 265.350 5033.347 Weight 115.7 kg Intake: IV 1285 968 Albumin Human 5% 250 ml @ 750 0 mls/hr IVPB .[facility] Rx#:[id number] Cardiac Output 0.9 Sodium 70 260 Chloride Pressure Bag 0.9 Sodium 63 108 Chloride Sodium Chloride 0.9% 1, 350 600 000 ml @ 50 mls/hr IV . Q20H [facility] Rx#:[id number] Intake, IV Titration 46.005 274.347 Amount Insulin Regular 100 unit 24.745 32.052 In Sodium Chloride 0.9% 100 ml @ Per Protocol IV .Q0M [facility] Rx#:[id number] Norepinephrine 4 mg In 21.260 242.295 Sodium Chloride 0.9% 250 ml @ 0.02 MCG/KG/MIN 8. 504 mls/hr IV .Q24H [facility] Rx#:[id number] Oral 240 Blood Product 620 Rc As-1 Unit 310 [id number] Rc As-1 Unit 310 [id number] Other 100 Rc As-1 Unit 100 [id number] Output: Chest Tube Drainage 110 74 Bilateral Mediastinal 110 74 Urine 380 515 Other: Voiding Method Indwelling Catheter Indwelling Catheter ABP, PAP, CO, CI - Last Documented Arterial Blood Pressure 110/45 Pulmonary Artery Pressure 35/15 Cardiac Output 7.8 Cardiac Index 3.4 - Exam CONSTITUTIONAL: Appears comfortable, cooperative, no acute distress RESPIRATORY: Lungs sounds diminished bilaterally. Respirations even, nonlabored. Currently on 3 L nasal cannula with oxygen saturation 96%. Able to achieve 500 mL on incentive spirometry. Strong cough. CARDIOVASCULAR: S1, S2 present. Regular rate and rhythm, sinus rhythm on telemetry. Sternum stable. Palpable peripheral pulses bilaterally. No edema present. No calf pain or tenderness noted. Heart hugger in place with patient demonstrating appropriate use. Antiembolism stockings, SCDs present. GASTROINTESTINAL: Abdomen soft, nontender, nondistended, obese. Hypoactive bowel sounds present 4 quadrants. Tolerating clear liquids. Negative flatus GENITOURINARY: Luna present draining clear, yellow urine. Output overnight 35-50 mL per hour INTEGUMENTARY: Skin is warm and dry with evidence of good perfusion. Anterior chest incision well approximated and covered with dry intact dressing NEUROLOGIC: Cranial nerves II through XII intact MUSKULOSKELETAL: Able to move all extremities, strength equal bilaterally PSYCHIATRIC: Alert and oriented to person place and time, appropriate affect, intact judgment and insight INVASIVE LINES AND TUBES: Mediastinal chest tubes present and connected to wall suction, no air leaks present, 50 mL serosanguineous drainage overnight, 190 mL since surgery. A/V epicardial pacemaker wires present, connected to generator, DDD mode with backup rate 50 bpm. Right internal jugular Vallejo/Cordis, left radial arterial line present. Last CO/CI 7.8/3.4, PA 36/13, CVP 9. - Allied health notes Allied health notes reviewed: nursing - Labs CBC & Chem 7: 12/14/21 06:50 12/14/21 04:23 Labs: Abnormal Lab Results - Last 24 Hours (Table) 12/07/21 12/13/21 12/13/21 Range/Units 11:03 08:30 09:33 WBC (3.8-10.6) k/uL RBC (4.30-5.90) m/uL Hgb (13.0-17.5) gm/dL Hct (39.0-53.0) % Plt Count (150-450) k/uL Neutrophils # (1.3-7.7) k/uL Lymphocytes # (1.0-4.8) k/uL APTT (22.0-30.0) sec ABG pH 7.34 L (7.35-7.45) ABG pCO2 51 H (35-45) mmHg ABG pO2 278 H 287 H (83-108) mmHg ABG HCO3 28 H (21-25) mmol/L ABG Total CO2 29 H (19-24) mmol/L ABG O2 Saturation 99.7 H 99.7 H (94-97) % ABG Hematocrit 31 L 25 L (34.0-46.0) % ABG Potassium 5.0 H (3.4-4.5) mmol/L ABG Ionized Calcium 4.1 L (4.5-5.3) mg/dL ABG Glucose 111 H (75-99) mg/dL ABG Lactic Acid (0.5-1.6) mmol/L Hemoglobin 10.2 L 8.2 L (13.0-17.5) gm/dL Chloride (98-107) mmol/L Glucose (74-99) mg/dL POC Glucose (mg/dL) (75-99) mg/dL Calcium (8.4-10.2) mg/dL Ionized Calcium Manny (4.5-5.3) mg/dL Total Protein (6.3-8.2) g/dL Arterial Blood Potassium 5.0 H (3.4-4.5) mmol/L Arterial Blood Glucose 111 H (75-99) mg/dL Crossmatch See Detail 12/13/21 12/13/21 12/13/21 Range/Units 09:38 10:05 10:15 WBC (3.8-10.6) k/uL RBC (4.30-5.90) m/uL Hgb (13.0-17.5) gm/dL Hct (39.0-53.0) % Plt Count (150-450) k/uL Neutrophils # (1.3-7.7) k/uL Lymphocytes # (1.0-4.8) k/uL APTT (22.0-30.0) sec ABG pH 7.32 L (7.35-7.45) ABG pCO2 48 H 50 H 46 H (35-45) mmHg ABG pO2 340 H 189 H 377 H (83-108) mmHg ABG HCO3 27 H 26 H 26 H (21-25) mmol/L ABG Total CO2 29 H 27 H 27 H (19-24) mmol/L ABG O2 Saturation 100.0 H 99.4 H 99.9 H (94-97) % ABG Hematocrit 30 L 25 L 25 L (34.0-46.0) % ABG Potassium 4.9 H 5.5 H 5.2 H (3.4-4.5) mmol/L ABG Ionized Calcium 4.3 L 4.3 L (4.5-5.3) mg/dL ABG Glucose 110 H 128 H 136 H (75-99) mg/dL ABG Lactic Acid (0.5-1.6) mmol/L Hemoglobin 9.7 L 8.0 L 8.2 L (13.0-17.5) gm/dL Chloride (98-107) mmol/L Glucose (74-99) mg/dL POC Glucose (mg/dL) (75-99) mg/dL Calcium (8.4-10.2) mg/dL Ionized Calcium Manny (4.5-5.3) mg/dL Total Protein (6.3-8.2) g/dL Arterial Blood Potassium 4.9 H 5.5 H 5.2 H (3.4-4.5) mmol/L Arterial Blood Glucose 110 H 128 H 136 H (75-99) mg/dL Crossmatch 05/26/22 05/26/22 05/26/22 Range/Units 10:48 11:27 12:20 WBC (3.8-10.6) k/uL RBC (4.30-5.90) m/uL Hgb (13.0-17.5) gm/dL Hct (39.0-53.0) % Plt Count (150-450) k/uL Neutrophils # (1.3-7.7) k/uL Lymphocytes # (1.0-4.8) k/uL APTT (22.0-30.0) sec ABG pH 7.21 L (7.35-7.45) ABG pCO2 66 H (35-45) mmHg ABG pO2 277 H 339 H 80 L (83-108) mmHg ABG HCO3 26 H 26 H (21-25) mmol/L ABG Total CO2 27 H 26 H 28 H (19-24) mmol/L ABG O2 Saturation 99.7 H 99.9 H (94-97) % ABG Hematocrit 25 L 23 L 24 L (34.0-46.0) % ABG Potassium 5.8 H 5.7 H 5.1 H (3.4-4.5) mmol/L ABG Ionized Calcium 4.2 L 4.0 L 4.4 L (4.5-5.3) mg/dL ABG Glucose 154 H 172 H 149 H (75-99) mg/dL ABG Lactic Acid 1.9 H 1.7 H (0.5-1.6) mmol/L Hemoglobin 8.1 L 7.4 L 7.9 L (13.0-17.5) gm/dL Chloride (98-107) mmol/L Glucose (74-99) mg/dL POC Glucose (mg/dL) (75-99) mg/dL Calcium (8.4-10.2) mg/dL Ionized Calcium Manny (4.5-5.3) mg/dL Total Protein (6.3-8.2) g/dL Arterial Blood Potassium 5.8 H 5.7 H 5.1 H (3.4-4.5) mmol/L Arterial Blood Glucose 154 H 172 H 149 H (75-99) mg/dL Crossmatch 12/13/21 12/13/21 12/13/21 Range/Units 12:58 13:18 13:18 WBC 11.3 H (3.8-10.6) k/uL RBC 2.52 L (4.30-5.90) m/uL Hgb 7.4 L (13.0-17.5) gm/dL Hct 23.3 L (39.0-53.0) % Plt Count (150-450) k/uL Neutrophils # 8.2 H (1.3-7.7) k/uL Lymphocytes # (1.0-4.8) k/uL APTT 33.2 H (22.0-30.0) sec ABG pH 7.25 L (7.35-7.45) ABG pCO2 57 H (35-45) mmHg ABG pO2 360 H (83-108) mmHg ABG HCO3 (21-25) mmol/L ABG Total CO2 27 H (19-24) mmol/L ABG O2 Saturation 99.9 H (94-97) % ABG Hematocrit 24 L (34.0-46.0) % ABG Potassium 5.1 H (3.4-4.5) mmol/L ABG Ionized Calcium 4.3 L (4.5-5.3) mg/dL ABG Glucose 153 H (75-99) mg/dL ABG Lactic Acid (0.5-1.6) mmol/L Hemoglobin 7.9 L (13.0-17.5) gm/dL Chloride (98-107) mmol/L Glucose (74-99) mg/dL POC Glucose (mg/dL) (75-99) mg/dL Calcium (8.4-10.2) mg/dL Ionized Calcium Manny (4.5-5.3) mg/dL Total Protein (6.3-8.2) g/dL Arterial Blood Potassium 5.1 H (3.4-4.5) mmol/L Arterial Blood Glucose 153 H (75-99) mg/dL Crossmatch 12/13/21 12/13/21 12/13/21 Range/Units 13:18 13:23 13:50 WBC (3.8-10.6) k/uL RBC (4.30-5.90) m/uL Hgb (13.0-17.5) gm/dL Hct (39.0-53.0) % Plt Count (150-450) k/uL Neutrophils # (1.3-7.7) k/uL Lymphocytes # (1.0-4.8) k/uL APTT (22.0-30.0) sec ABG pH 7.25 L (7.35-7.45) ABG pCO2 56 H (35-45) mmHg ABG pO2 368 H (83-108) mmHg ABG HCO3 (21-25) mmol/L ABG Total CO2 26 H (19-24) mmol/L ABG O2 Saturation 99.0 H (94-97) % ABG Hematocrit (34.0-46.0) % ABG Potassium (3.4-4.5) mmol/L ABG Ionized Calcium (4.5-5.3) mg/dL ABG Glucose (75-99) mg/dL ABG Lactic Acid (0.5-1.6) mmol/L Hemoglobin (13.0-17.5) gm/dL Chloride 108 H (98-107) mmol/L Glucose 139 H (74-99) mg/dL POC Glucose (mg/dL) 161 H (75-99) mg/dL Calcium 7.1 L (8.4-10.2) mg/dL Ionized Calcium Manny 4.4 L (4.5-5.3) mg/dL Total Protein 5.3 L (6.3-8.2) g/dL Arterial Blood Potassium (3.4-4.5) mmol/L Arterial Blood Glucose (75-99) mg/dL Crossmatch 12/13/21 12/13/21 12/13/21 Range/Units 14:09 15:13 16:11 WBC (3.8-10.6) k/uL RBC (4.30-5.90) m/uL Hgb (13.0-17.5) gm/dL Hct (39.0-53.0) % Plt Count (150-450) k/uL Neutrophils # (1.3-7.7) k/uL Lymphocytes # (1.0-4.8) k/uL APTT (22.0-30.0) sec ABG pH 7.12 L* (7.35-7.45) ABG pCO2 68 H (35-45) mmHg ABG pO2 (83-108) mmHg ABG HCO3 (21-25) mmol/L ABG Total CO2 (19-24) mmol/L ABG O2 Saturation (94-97) % ABG Hematocrit (34.0-46.0) % ABG Potassium (3.4-4.5) mmol/L ABG Ionized Calcium (4.5-5.3) mg/dL ABG Glucose (75-99) mg/dL ABG Lactic Acid (0.5-1.6) mmol/L Hemoglobin (13.0-17.5) gm/dL Chloride (98-107) mmol/L Glucose (74-99) mg/dL POC Glucose (mg/dL) 205 H 174 H (75-99) mg/dL Calcium (8.4-10.2) mg/dL Ionized Calcium Manny (4.5-5.3) mg/dL Total Protein (6.3-8.2) g/dL Arterial Blood Potassium (3.4-4.5) mmol/L Arterial Blood Glucose (75-99) mg/dL Crossmatch 12/13/21 12/13/21 12/13/21 Range/Units 16:15 17:06 17:06 WBC (3.8-10.6) k/uL RBC (4.30-5.90) m/uL Hgb (13.0-17.5) gm/dL Hct (39.0-53.0) % Plt Count (150-450) k/uL Neutrophils # (1.3-7.7) k/uL Lymphocytes # (1.0-4.8) k/uL APTT (22.0-30.0) sec ABG pH 7.20 L (7.35-7.45) ABG pCO2 59 H (35-45) mmHg ABG pO2 214 H (83-108) mmHg ABG HCO3 (21-25) mmol/L ABG Total CO2 25 H (19-24) mmol/L ABG O2 Saturation 98.8 H (94-97) % ABG Hematocrit (34.0-46.0) % ABG Potassium (3.4-4.5) mmol/L ABG Ionized Calcium (4.5-5.3) mg/dL ABG Glucose (75-99) mg/dL ABG Lactic Acid (0.5-1.6) mmol/L Hemoglobin (13.0-17.5) gm/dL Chloride (98-107) mmol/L Glucose (74-99) mg/dL POC Glucose (mg/dL) 183 H 163 H (75-99) mg/dL Calcium (8.4-10.2) mg/dL Ionized Calcium Manny (4.5-5.3) mg/dL Total Protein (6.3-8.2) g/dL Arterial Blood Potassium (3.4-4.5) mmol/L Arterial Blood Glucose (75-99) mg/dL Crossmatch 12/13/21 12/13/21 12/13/21 Range/Units 17:22 17:22 18:01 WBC 10.7 H (3.8-10.6) k/uL RBC 2.11 L (4.30-5.90) m/uL Hgb 6.1 L* (13.0-17.5) gm/dL Hct 19.5 L* (39.0-53.0) % Plt Count (150-450) k/uL Neutrophils # 8.6 H (1.3-7.7) k/uL Lymphocytes # (1.0-4.8) k/uL APTT (22.0-30.0) sec ABG pH 7.28 L (7.35-7.45) ABG pCO2 48 H (35-45) mmHg ABG pO2 152 H (83-108) mmHg ABG HCO3 (21-25) mmol/L ABG Total CO2 (19-24) mmol/L ABG O2 Saturation 98.6 H (94-97) % ABG Hematocrit (34.0-46.0) % ABG Potassium (3.4-4.5) mmol/L ABG Ionized Calcium (4.5-5.3) mg/dL ABG Glucose (75-99) mg/dL ABG Lactic Acid (0.5-1.6) mmol/L Hemoglobin (13.0-17.5) gm/dL Chloride (98-107) mmol/L Glucose (74-99) mg/dL POC Glucose (mg/dL) (75-99) mg/dL Calcium (8.4-10.2) mg/dL Ionized Calcium Manny 4.4 L (4.5-5.3) mg/dL Total Protein (6.3-8.2) g/dL Arterial Blood Potassium (3.4-4.5) mmol/L Arterial Blood Glucose (75-99) mg/dL Crossmatch 12/13/21 12/13/21 12/13/21 Range/Units 18:18 18:55 19:00 WBC (3.8-10.6) k/uL RBC 2.00 L (4.30-5.90) m/uL Hgb 5.9 L* (13.0-17.5) gm/dL Hct 18.3 L* (39.0-53.0) % Plt Count (150-450) k/uL Neutrophils # 8.4 H (1.3-7.7) k/uL Lymphocytes # (1.0-4.8) k/uL APTT (22.0-30.0) sec ABG pH (7.35-7.45) ABG pCO2 (35-45) mmHg ABG pO2 (83-108) mmHg ABG HCO3 (21-25) mmol/L ABG Total CO2 (19-24) mmol/L ABG O2 Saturation (94-97) % ABG Hematocrit (34.0-46.0) % ABG Potassium (3.4-4.5) mmol/L ABG Ionized Calcium (4.5-5.3) mg/dL ABG Glucose (75-99) mg/dL ABG Lactic Acid (0.5-1.6) mmol/L Hemoglobin (13.0-17.5) gm/dL Chloride (98-107) mmol/L Glucose (74-99) mg/dL POC Glucose (mg/dL) 132 H 130 H (75-99) mg/dL Calcium (8.4-10.2) mg/dL Ionized Calcium Manny (4.5-5.3) mg/dL Total Protein (6.3-8.2) g/dL Arterial Blood Potassium (3.4-4.5) mmol/L Arterial Blood Glucose (75-99) mg/dL Crossmatch 12/13/21 12/13/21 12/13/21 Range/Units 20:10 20:58 21:04 WBC (3.8-10.6) k/uL RBC (4.30-5.90) m/uL Hgb (13.0-17.5) gm/dL Hct (39.0-53.0) % Plt Count (150-450) k/uL Neutrophils # (1.3-7.7) k/uL Lymphocytes # (1.0-4.8) k/uL APTT (22.0-30.0) sec ABG pH (7.35-7.45) ABG pCO2 (35-45) mmHg ABG pO2 (83-108) mmHg ABG HCO3 (21-25) mmol/L ABG Total CO2 (19-24) mmol/L ABG O2 Saturation (94-97) % ABG Hematocrit (34.0-46.0) % ABG Potassium (3.4-4.5) mmol/L ABG Ionized Calcium (4.5-5.3) mg/dL ABG Glucose (75-99) mg/dL ABG Lactic Acid (0.5-1.6) mmol/L Hemoglobin (13.0-17.5) gm/dL Chloride (98-107) mmol/L Glucose (74-99) mg/dL POC Glucose (mg/dL) 129 H 137 H (75-99) mg/dL Calcium (8.4-10.2) mg/dL Ionized Calcium Manny (4.5-5.3) mg/dL Total Protein (6.3-8.2) g/dL Arterial Blood Potassium (3.4-4.5) mmol/L Arterial Blood Glucose (75-99) mg/dL Crossmatch See Detail 12/13/21 12/13/21 12/14/21 Range/Units 21:53 23:04 00:05 WBC (3.8-10.6) k/uL RBC (4.30-5.90) m/uL Hgb (13.0-17.5) gm/dL Hct (39.0-53.0) % Plt Count (150-450) k/uL Neutrophils # (1.3-7.7) k/uL Lymphocytes # (1.0-4.8) k/uL APTT (22.0-30.0) sec ABG pH (7.35-7.45) ABG pCO2 (35-45) mmHg ABG pO2 (83-108) mmHg ABG HCO3 (21-25) mmol/L ABG Total CO2 (19-24) mmol/L ABG O2 Saturation (94-97) % ABG Hematocrit (34.0-46.0) % ABG Potassium (3.4-4.5) mmol/L ABG Ionized Calcium (4.5-5.3) mg/dL ABG Glucose (75-99) mg/dL ABG Lactic Acid (0.5-1.6) mmol/L Hemoglobin (13.0-17.5) gm/dL Chloride (98-107) mmol/L Glucose (74-99) mg/dL POC Glucose (mg/dL) 130 H 125 H 117 H (75-99) mg/dL Calcium (8.4-10.2) mg/dL Ionized Calcium Manny (4.5-5.3) mg/dL Total Protein (6.3-8.2) g/dL Arterial Blood Potassium (3.4-4.5) mmol/L Arterial Blood Glucose (75-99) mg/dL Crossmatch 12/14/21 12/14/21 12/14/21 Range/Units 00:59 02:00 02:02 WBC (3.8-10.6) k/uL RBC 2.28 L (4.30-5.90) m/uL Hgb 6.7 L* (13.0-17.5) gm/dL Hct 20.5 L (39.0-53.0) % Plt Count 126 L (150-450) k/uL Neutrophils # (1.3-7.7) k/uL Lymphocytes # (1.0-4.8) k/uL APTT (22.0-30.0) sec ABG pH (7.35-7.45) ABG pCO2 (35-45) mmHg ABG pO2 (83-108) mmHg ABG HCO3 (21-25) mmol/L ABG Total CO2 (19-24) mmol/L ABG O2 Saturation (94-97) % ABG Hematocrit (34.0-46.0) % ABG Potassium (3.4-4.5) mmol/L ABG Ionized Calcium (4.5-5.3) mg/dL ABG Glucose (75-99) mg/dL ABG Lactic Acid (0.5-1.6) mmol/L Hemoglobin (13.0-17.5) gm/dL Chloride (98-107) mmol/L Glucose (74-99) mg/dL POC Glucose (mg/dL) 108 H 131 H (75-99) mg/dL Calcium (8.4-10.2) mg/dL Ionized Calcium Manny (4.5-5.3) mg/dL Total Protein (6.3-8.2) g/dL Arterial Blood Potassium (3.4-4.5) mmol/L Arterial Blood Glucose (75-99) mg/dL Crossmatch 12/14/21 12/14/21 12/14/21 Range/Units 03:12 04:02 04:23 WBC (3.8-10.6) k/uL RBC (4.30-5.90) m/uL Hgb (13.0-17.5) gm/dL Hct (39.0-53.0) % Plt Count (150-450) k/uL Neutrophils # (1.3-7.7) k/uL Lymphocytes # (1.0-4.8) k/uL APTT (22.0-30.0) sec ABG pH (7.35-7.45) ABG pCO2 (35-45) mmHg ABG pO2 (83-108) mmHg ABG HCO3 (21-25) mmol/L ABG Total CO2 (19-24) mmol/L ABG O2 Saturation (94-97) % ABG Hematocrit (34.0-46.0) % ABG Potassium (3.4-4.5) mmol/L ABG Ionized Calcium (4.5-5.3) mg/dL ABG Glucose (75-99) mg/dL ABG Lactic Acid (0.5-1.6) mmol/L Hemoglobin (13.0-17.5) gm/dL Chloride 108 H (98-107) mmol/L Glucose 105 H (74-99) mg/dL POC Glucose (mg/dL) 126 H 117 H (75-99) mg/dL Calcium 7.0 L (8.4-10.2) mg/dL Ionized Calcium Manny 4.4 L (4.5-5.3) mg/dL Total Protein 5.2 L (6.3-8.2) g/dL Arterial Blood Potassium (3.4-4.5) mmol/L Arterial Blood Glucose (75-99) mg/dL Crossmatch 12/14/21 12/14/21 12/14/21 Range/Units 05:01 05:54 06:49 WBC (3.8-10.6) k/uL RBC (4.30-5.90) m/uL Hgb (13.0-17.5) gm/dL Hct (39.0-53.0) % Plt Count (150-450) k/uL Neutrophils # (1.3-7.7) k/uL Lymphocytes # (1.0-4.8) k/uL APTT (22.0-30.0) sec ABG pH (7.35-7.45) ABG pCO2 (35-45) mmHg ABG pO2 (83-108) mmHg ABG HCO3 (21-25) mmol/L ABG Total CO2 (19-24) mmol/L ABG O2 Saturation (94-97) % ABG Hematocrit (34.0-46.0) % ABG Potassium (3.4-4.5) mmol/L ABG Ionized Calcium (4.5-5.3) mg/dL ABG Glucose (75-99) mg/dL ABG Lactic Acid (0.5-1.6) mmol/L Hemoglobin (13.0-17.5) gm/dL Chloride (98-107) mmol/L Glucose (74-99) mg/dL POC Glucose (mg/dL) 133 H 126 H 120 H (75-99) mg/dL Calcium (8.4-10.2) mg/dL Ionized Calcium Manny (4.5-5.3) mg/dL Total Protein (6.3-8.2) g/dL Arterial Blood Potassium (3.4-4.5) mmol/L Arterial Blood Glucose (75-99) mg/dL Crossmatch 12/14/21 Range/Units 06:50 WBC (3.8-10.6) k/uL RBC 2.55 L (4.30-5.90) m/uL Hgb 7.4 L (13.0-17.5) gm/dL Hct 23.0 L (39.0-53.0) % Plt Count 120 L (150-450) k/uL Neutrophils # (1.3-7.7) k/uL Lymphocytes # 0.9 L (1.0-4.8) k/uL APTT (22.0-30.0) sec ABG pH (7.35-7.45) ABG pCO2 (35-45) mmHg ABG pO2 (83-108) mmHg ABG HCO3 (21-25) mmol/L ABG Total CO2 (19-24) mmol/L ABG O2 Saturation (94-97) % ABG Hematocrit (34.0-46.0) % ABG Potassium (3.4-4.5) mmol/L ABG Ionized Calcium (4.5-5.3) mg/dL ABG Glucose (75-99) mg/dL ABG Lactic Acid (0.5-1.6) mmol/L Hemoglobin (13.0-17.5) gm/dL Chloride (98-107) mmol/L Glucose (74-99) mg/dL POC Glucose (mg/dL) (75-99) mg/dL Calcium (8.4-10.2) mg/dL Ionized Calcium Manny (4.5-5.3) mg/dL Total Protein (6.3-8.2) g/dL Arterial Blood Potassium (3.4-4.5) mmol/L Arterial Blood Glucose (75-99) mg/dL Crossmatch - Imaging and Cardiology Chest x-ray: report reviewed, image reviewed Assessment and Plan Assessment: 1. Severe aortic valve stenosis, status post aortic valve replacement 2. CAD status post PCI stenting for [employer] of the [facility] at [facility] 2020 3. History hypertension, currently hypotensive on low-dose levo 4. Hyperlipidemia, treated, cholesterol 154, LDL 62, triglycerides 292 5. Obesity 6. Obstructive sleep apnea with home CPAP use 7. Insulin-dependent diabetes, preoperative hemoglobin A1c 6.6% 8. Previous tobacco dependence 9. Mild COPD, preoperative FEV1 61% of predicted 10. Vaccinated against Covid. 11. Postoperative acute blood loss anemia and thrombocytopenia, expected Plan: 1. Continue low-dose aspirin, statin, Plavix. Will start beta brooke therapy this evening and increase as tolerated. Wean levo as tolerated 2. Wean O2 as tolerated. Encourage incentive spirometry use 10 times every hour while awake. Bronchodilators per pulmonology 3. Patient's family to bring CPAP from home to be used at bedtime 4. Increase activity, ambulate as tolerated. PT/OT/cardiac rehab consulted 5. Will monitor daily labs and x-rays. Electrolyte replacement per protocol. Will give third unit packed red blood cells followed by IV Lasix 6. GI/DVT prophylaxis 7. Pain control with current medication regimen. [place] increased for better pain control 8. Insulin management per primary care service 9. Continue mediastinal chest tubes for another 24 hours 10. Will discontinue [place] later today. Connect Cordis to continuous CVP monitoring 11. Continue Luna catheter for another 24 hours for strict accurate intake and output. Daily weights 12. More recommendations to follow
[2021-12-14] MEDS: IPRATROPIUM-ALBUTEROL 3 ML NEB INHALATION SCH ×4 (08:42→20:38)
[2021-12-14] MEDS: HYDROcodone/APAP 10-325MG 1 EACH TAB PO PRN ×4 (08:48→21:22)
[2021-12-14] MEDS: HEPARIN SODIUM,PORCINE/PF 5,000 UNIT/0.5 ML SYRINGE SQ SCH ×2 (08:50→16:44)
[2021-12-14] MEDS ORDERED: bisacodyL 10 MG SUPP RECTAL PRN (09:00)
[2021-12-14] MEDS ORDERED: ASPIRIN 81 MG PO SCH (09:00)
[2021-12-14] MEDS ORDERED: METOPROLOL TARTRATE 12.5 MG TAB PO SCH ×2 (09:00→21:00)
[2021-12-14] MEDS ORDERED: MAGNESIUM HYDROXIDE 2,400 MG/10 ML CUP PO PRN (09:00)
[2021-12-14] MEDS ORDERED: PANTOPRAZOLE 40 MG/10 ML VIAL IVP SCH (09:00)
[2021-12-14] MEDS ORDERED: ASPIRIN 325 MG TAB PO SCH (09:00)
[2021-12-14] MEDS: ATORVASTATIN 40 MG TAB PO SCH (09:06)
[2021-12-14] MEDS: CLOPIDOGREL 75 MG TAB PO SCH (09:06)
[2021-12-14] MEDS: FLUoxetine HCL 10 MG CAP PO SCH (09:06)
[2021-12-14] MEDS: MULTIVITAMINS, THERA 1 EACH TAB PO SCH (09:06)
[2021-12-14 09:07] LABS: Glucose,Whole Blood 177 mg/dL (75-99)
--- NOTE | 2021-12-14 10:45 | P.PN ---
Subjective Progress Note Date: 12/14/21 This is a 58-year-old white male patient with past medical history of morbid ob esity, diabetes mellitus, hypertension, hyperlipidemia, obstructive sleep apnea on CPAP, tobacco abuse, coronary artery disease status post LAD stenting at the [facility]. Patient had been having history of chest pain and dyspnea on exertion for the past 2-3 years. He was found to have a murmur and moderate to severe aortic valve stenosis. In addition patient was complaining of fatigue . His preop workup included a transesophageal echocardiogram and cardiac catheterization that showed preserved LV function, an estimated valve area of the aortic valve of 1 cm, and a mean gradient of 40 mmHg with moderate mitral valve regurgitation. Cardiac catheterization showed mild in-stent restenosis of the LAD, and distal LAD was 100% occluded. Patient was initially considered for transcatheter aortic valve replacement however he was found to be low surgical risk and therefore was offered surgical option for which he opted. On 12/13/2021 patient had aortic valve replacement using a 23 cm Inspirus pericardial bioprosthesis, exclusion of the left atrial appendage using a 35 mm a true clip, sternal closure with pineal cable and 3 TM plating system, and intraoperative transesophageal echocardiogram. Patient is seen in the postoperative period in the intensive care unit, he is intubated, sedated but started to emerge from anesthesia. He was initially on assist-control mode of ventilator with a rate of 12, tidal volume was 500, FiO2 100% and PEEP of 5. Postop blood gas showed pH of 7.249, pCO2 of 55.7, and pO2 of 388 and FiO2 was dropped down to 50%, we increased the rate to 22. Hemodynamically patient has been stable, he is in sinus mechanism with a rate of 77 BPM, blood pressure is 109/52, PA pressures 46/19, CVP 16, cardiac output is 7.2, and cardiac index is 3.2 with a CVP of 16-18. Currently has 0.9 normal saline at a rate of 50 ML per hour, Diprivan is at 20 mics per kilo per minute, and insulin at 60 units per hour. Patient has 2 mediastinal chest tubes in place with 70 mL of serosanguineous output, no evidence of air leak, both chest tubes are white conn ected to the same Pleur-evac and connected to the oral suction. Sternum is clean dry and intact, incision is covered with surgical dressing, AV wires are in place connected to temporary pacemaker. Postoperative chest x-ray and labs are pending. 12/14/2021, the patient is extubated and the patient is currently on 2 L of oxygen by nasal cannula. I extubated approximately 3 hours following his alegre rgery and following his arrival to the ICU. The patient was given a spelled his breathing trial as the patient adequate weaning parameters. The blood gases following a 30 minutes of spelled his breathing trial showed a component of respiratory acidosis. The patient was quite asynchronous and was not tolerating the ET tube. I made a decision to extubate the patient. Postextubation, he was placed on a BiPAP initially at the pressures of 12/5 and later on 15/5 and he was kept on BiPAP overnight. Subsequent blood gases showed improvement and acid base status and the most recent blood gases from yesterday showed a pH of 7.28 with a pCO2 of 48 and pO2 of 152 and this was done and FiO2 of 40%. This morning, he is on 2 L. Chest tubes are still in place. Chest x-ray showing cardiac regular pulmonary edema and there is no evidence of any pneumothorax. The patient is a mediastinal and left pleural chest tube. Cardiac rhythm is sinus. Dorado-Miles catheter in place. The patient developed a hemoglobin of as low as 5.9 postop. The patient received a total of 3 units of packed RBC and th e most recent hemoglobin is at 7.4. Cardiac rhythm is sinus. He is known to have obstructive sleep apnea and the patient has been maintained on CPAP pressure of 10 cm of water outpatient. Rest of the electrolytes all stable for now. Objective - Vital Signs Vital signs: Vital Signs Temp 37.2 F L 12/14/21 09:18 Pulse 69 12/14/21 10:15 Resp 21 12/14/21 10:15 BP 124/52 12/14/21 10:15 Pulse Ox 96 12/14/21 10:15 FiO2 40 12/14/21 08:47 Intake & Output 12/13/21 12/14/21 12/14/21 18:59 06:59 18:59 Intake Total 3271.619 3014.347 458.161 Output Total 490 589 140 Balance 497.334 4227.347 318.161 Weight 115.7 kg Intake: IV 1285 968 197 Albumin Human 5% 250 ml @ 750 0 mls/hr IVPB .[facility] Rx#:[id number] Cardiac Output 0.9 Sodium 70 260 20 Chloride Pressure Bag 0.9 Sodium 63 108 27 Chloride Sodium Chloride 0.9% 1, 350 600 150 000 ml @ 50 mls/hr IV . Q20H [facility] Rx#:[id number] Intake, IV Titration 46.005 274.347 11.161 Amount Insulin Regular 100 unit 24.745 32.052 11.161 In Sodium Chloride 0.9% 100 ml @ Per Protocol IV .Q0M [facility] Rx#:[id number] Norepinephrine 4 mg In 21.260 242.295 Sodium Chloride 0.9% 250 ml @ 0.02 MCG/KG/MIN 8. 504 mls/hr IV .Q24H [facility] Rx#:[id number] Oral 240 250 Blood Product 620 0 Rc As-1 Unit 310 [id number] Rc As-1 Unit 0 [id number] Rc As-1 Unit 310 [id number] Other 100 Rc As-1 Unit 100 [id number] Output: Chest Tube Drainage 110 74 20 Bilateral Mediastinal 110 74 20 Urine 380 515 120 Other: Voiding Method Indwelling Catheter Indwelling Catheter ABP, PAP, CO, CI - Last Documented Arterial Blood Pressure 119/42 Pulmonary Artery Pressure 35/9 Cardiac Output 8.1 Cardiac Index 3.6 - Exam CONSTITUTIONAL: Appears comfortable, cooperative, no acute distress RESPIRATORY: Lungs sounds diminished bilaterally. Respirations even, nonlabored. Currently on 3 L nasal cannula with oxygen saturation 96%. Able to achieve 500 mL on incentive spirometry. Strong cough. CARDIOVASCULAR: S1, S2 present. Regular rate and rhythm, sinus rhythm on telemetry. Sternum stable. Palpable peripheral pulses bilaterally. No edema present. No calf pain or tenderness noted. Heart hugger in place with patient demonstrating appropriate use. Antiembolism stockings, SCDs present. GASTROINTESTINAL: Abdomen soft, nontender, nondistended, obese. Hypoactive bowel sounds present 4 quadrants. Tolerating clear liquids. Negative flatus GENITOURINARY: Luna present draining clear, yellow urine. Output overnight 35-50 mL per hour INTEGUMENTARY: Skin is warm and dry with evidence of good perfusion. Anterior chest incision well approximated and covered with dry intact dressing NEUROLOGIC: Cranial nerves II through XII intact MUSKULOSKELETAL: Able to move all extremities, strength equal bilaterally PSYCHIATRIC: Alert and oriented to person place and time, appropriate affect, intact judgment and insight INVASIVE LINES AND TUBES: Mediastinal chest tubes present and connected to wall suction, no air leaks present, 50 mL serosanguineous drainage overnight, 190 mL since surgery. A/V epicardial pacemaker wires present, connected to generator, DDD mode with backup rate 50 bpm. Right internal jugular Dorado/Cordis, left radial arterial line present. Last CO/CI 7.8/3.4, PA 36/13, CVP 9. - Labs CBC & Chem 7: 12/14/21 06:50 12/14/21 04:23 Labs: Abnormal Lab Results - Last 24 Hours (Table) 12/07/21 12/13/21 12/13/21 Range/Units 11:03 08:30 09:33 WBC (3.8-10.6) k/uL RBC (4.30-5.90) m/uL Hgb (13.0-17.5) gm/dL Hct (39.0-53.0) % Plt Count (150-450) k/uL Neutrophils # (1.3-7.7) k/uL Lymphocytes # (1.0-4.8) k/uL APTT (22.0-30.0) sec ABG pH 7.34 L (7.35-7.45) ABG pCO2 51 H (35-45) mmHg ABG pO2 278 H 287 H (83-108) mmHg ABG HCO3 28 H (21-25) mmol/L ABG Total CO2 29 H (19-24) mmol/L ABG O2 Saturation 99.7 H 99.7 H (94-97) % ABG Hematocrit 31 L 25 L (34.0-46.0) % ABG Potassium 5.0 H (3.4-4.5) mmol/L ABG Ionized Calcium 4.1 L (4.5-5.3) mg/dL ABG Glucose 111 H (75-99) mg/dL ABG Lactic Acid (0.5-1.6) mmol/L Hemoglobin 10.2 L 8.2 L (13.0-17.5) gm/dL Chloride (98-107) mmol/L Glucose (74-99) mg/dL POC Glucose (mg/dL) (75-99) mg/dL Calcium (8.4-10.2) mg/dL Ionized Calcium Manny (4.5-5.3) mg/dL Total Protein (6.3-8.2) g/dL Arterial Blood Potassium 5.0 H (3.4-4.5) mmol/L Arterial Blood Glucose 111 H (75-99) mg/dL Crossmatch See Detail 12/13/21 12/13/21 12/13/21 Range/Units 09:38 10:05 10:15 WBC (3.8-10.6) k/uL RBC (4.30-5.90) m/uL Hgb (13.0-17.5) gm/dL Hct (39.0-53.0) % Plt Count (150-450) k/uL Neutrophils # (1.3-7.7) k/uL Lymphocytes # (1.0-4.8) k/uL APTT (22.0-30.0) sec ABG pH 7.32 L (7.35-7.45) ABG pCO2 48 H 50 H 46 H (35-45) mmHg ABG pO2 340 H 189 H 377 H (83-108) mmHg ABG HCO3 27 H 26 H 26 H (21-25) mmol/L ABG Total CO2 29 H 27 H 27 H (19-24) mmol/L ABG O2 Saturation 100.0 H 99.4 H 99.9 H (94-97) % ABG Hematocrit 30 L 25 L 25 L (34.0-46.0) % ABG Potassium 4.9 H 5.5 H 5.2 H (3.4-4.5) mmol/L ABG Ionized Calcium 4.3 L 4.3 L (4.5-5.3) mg/dL ABG Glucose 110 H 128 H 136 H (75-99) mg/dL ABG Lactic Acid (0.5-1.6) mmol/L Hemoglobin 9.7 L 8.0 L 8.2 L (13.0-17.5) gm/dL Chloride (98-107) mmol/L Glucose (74-99) mg/dL POC Glucose (mg/dL) (75-99) mg/dL Calcium (8.4-10.2) mg/dL Ionized Calcium Manny (4.5-5.3) mg/dL Total Protein (6.3-8.2) g/dL Arterial Blood Potassium 4.9 H 5.5 H 5.2 H (3.4-4.5) mmol/L Arterial Blood Glucose 110 H 128 H 136 H (75-99) mg/dL Crossmatch 12/13/21 12/13/21 12/13/21 Range/Units 10:48 11:27 12:20 WBC (3.8-10.6) k/uL RBC (4.30-5.90) m/uL Hgb (13.0-17.5) gm/dL Hct (39.0-53.0) % Plt Count (150-450) k/uL Neutrophils # (1.3-7.7) k/uL Lymphocytes # (1.0-4.8) k/uL APTT (22.0-30.0) sec ABG pH 7.21 L (7.35-7.45) ABG pCO2 66 H (35-45) mmHg ABG pO2 277 H 339 H 80 L (83-108) mmHg ABG HCO3 26 H 26 H (21-25) mmol/L ABG Total CO2 27 H 26 H 28 H (19-24) mmol/L ABG O2 Saturation 99.7 H 99.9 H (94-97) % ABG Hematocrit 25 L 23 L 24 L (34.0-46.0) % ABG Potassium 5.8 H 5.7 H 5.1 H (3.4-4.5) mmol/L ABG Ionized Calcium 4.2 L 4.0 L 4.4 L (4.5-5.3) mg/dL ABG Glucose 154 H 172 H 149 H (75-99) mg/dL ABG Lactic Acid 1.9 H 1.7 H (0.5-1.6) mmol/L Hemoglobin 8.1 L 7.4 L 7.9 L (13.0-17.5) gm/dL Chloride (98-107) mmol/L Glucose (74-99) mg/dL POC Glucose (mg/dL) (75-99) mg/dL Calcium (8.4-10.2) mg/dL Ionized Calcium Manny (4.5-5.3) mg/dL Total Protein (6.3-8.2) g/dL Arterial Blood Potassium 5.8 H 5.7 H 5.1 H (3.4-4.5) mmol/L Arterial Blood Glucose 154 H 172 H 149 H (75-99) mg/dL Crossmatch 12/13/21 12/13/21 12/13/21 Range/Units 12:58 13:18 13:18 WBC 11.3 H (3.8-10.6) k/uL RBC 2.52 L (4.30-5.90) m/uL Hgb 7.4 L (13.0-17.5) gm/dL Hct 23.3 L (39.0-53.0) % Plt Count (150-450) k/uL Neutrophils # 8.2 H (1.3-7.7) k/uL Lymphocytes # (1.0-4.8) k/uL APTT 33.2 H (22.0-30.0) sec ABG pH 7.25 L (7.35-7.45) ABG pCO2 57 H (35-45) mmHg ABG pO2 360 H (83-108) mmHg ABG HCO3 (21-25) mmol/L ABG Total CO2 27 H (19-24) mmol/L ABG O2 Saturation 99.9 H (94-97) % ABG Hematocrit 24 L (34.0-46.0) % ABG Potassium 5.1 H (3.4-4.5) mmol/L ABG Ionized Calcium 4.3 L (4.5-5.3) mg/dL ABG Glucose 153 H (75-99) mg/dL ABG Lactic Acid (0.5-1.6) mmol/L Hemoglobin 7.9 L (13.0-17.5) gm/dL Chloride (98-107) mmol/L Glucose (74-99) mg/dL POC Glucose (mg/dL) (75-99) mg/dL Calcium (8.4-10.2) mg/dL Ionized Calcium Manny (4.5-5.3) mg/dL Total Protein (6.3-8.2) g/dL Arterial Blood Potassium 5.1 H (3.4-4.5) mmol/L Arterial Blood Glucose 153 H (75-99) mg/dL Crossmatch 12/13/21 12/13/21 12/13/21 Range/Units 13:18 13:23 13:50 WBC (3.8-10.6) k/uL RBC (4.30-5.90) m/uL Hgb (13.0-17.5) gm/dL Hct (39.0-53.0) % Plt Count (150-450) k/uL Neutrophils # (1.3-7.7) k/uL Lymphocytes # (1.0-4.8) k/uL APTT (22.0-30.0) sec ABG pH 7.25 L (7.35-7.45) ABG pCO2 56 H (35-45) mmHg ABG pO2 368 H (83-108) mmHg ABG HCO3 (21-25) mmol/L ABG Total CO2 26 H (19-24) mmol/L ABG O2 Saturation 99.0 H (94-97) % ABG Hematocrit (34.0-46.0) % ABG Potassium (3.4-4.5) mmol/L ABG Ionized Calcium (4.5-5.3) mg/dL ABG Glucose (75-99) mg/dL ABG Lactic Acid (0.5-1.6) mmol/L Hemoglobin (13.0-17.5) gm/dL Chloride 108 H (98-107) mmol/L Glucose 139 H (74-99) mg/dL POC Glucose (mg/dL) 161 H (75-99) mg/dL Calcium 7.1 L (8.4-10.2) mg/dL Ionized Calcium Manny 4.4 L (4.5-5.3) mg/dL Total Protein 5.3 L (6.3-8.2) g/dL Arterial Blood Potassium (3.4-4.5) mmol/L Arterial Blood Glucose (75-99) mg/dL Crossmatch 12/13/21 12/13/21 12/13/21 Range/Units 14:09 15:13 16:11 WBC (3.8-10.6) k/uL RBC (4.30-5.90) m/uL Hgb (13.0-17.5) gm/dL Hct (39.0-53.0) % Plt Count (150-450) k/uL Neutrophils # (1.3-7.7) k/uL Lymphocytes # (1.0-4.8) k/uL APTT (22.0-30.0) sec ABG pH 7.12 L* (7.35-7.45) ABG pCO2 68 H (35-45) mmHg ABG pO2 (83-108) mmHg ABG HCO3 (21-25) mmol/L ABG Total CO2 (19-24) mmol/L ABG O2 Saturation (94-97) % ABG Hematocrit (34.0-46.0) % ABG Potassium (3.4-4.5) mmol/L ABG Ionized Calcium (4.5-5.3) mg/dL ABG Glucose (75-99) mg/dL ABG Lactic Acid (0.5-1.6) mmol/L Hemoglobin (13.0-17.5) gm/dL Chloride (98-107) mmol/L Glucose (74-99) mg/dL POC Glucose (mg/dL) 205 H 174 H (75-99) mg/dL Calcium (8.4-10.2) mg/dL Ionized Calcium Manny (4.5-5.3) mg/dL Total Protein (6.3-8.2) g/dL Arterial Blood Potassium (3.4-4.5) mmol/L Arterial Blood Glucose (75-99) mg/dL Crossmatch 12/13/21 12/13/21 12/13/21 Range/Units 16:15 17:06 17:06 WBC (3.8-10.6) k/uL RBC (4.30-5.90) m/uL Hgb (13.0-17.5) gm/dL Hct (39.0-53.0) % Plt Count (150-450) k/uL Neutrophils # (1.3-7.7) k/uL Lymphocytes # (1.0-4.8) k/uL APTT (22.0-30.0) sec ABG pH 7.20 L (7.35-7.45) ABG pCO2 59 H (35-45) mmHg ABG pO2 214 H (83-108) mmHg ABG HCO3 (21-25) mmol/L ABG Total CO2 25 H (19-24) mmol/L ABG O2 Saturation 98.8 H (94-97) % ABG Hematocrit (34.0-46.0) % ABG Potassium (3.4-4.5) mmol/L ABG Ionized Calcium (4.5-5.3) mg/dL ABG Glucose (75-99) mg/dL ABG Lactic Acid (0.5-1.6) mmol/L Hemoglobin (13.0-17.5) gm/dL Chloride (98-107) mmol/L Glucose (74-99) mg/dL POC Glucose (mg/dL) 183 H 163 H (75-99) mg/dL Calcium (8.4-10.2) mg/dL Ionized Calcium Manny (4.5-5.3) mg/dL Total Protein (6.3-8.2) g/dL Arterial Blood Potassium (3.4-4.5) mmol/L Arterial Blood Glucose (75-99) mg/dL Crossmatch 12/13/21 12/13/21 12/13/21 Range/Units 17:22 17:22 18:01 WBC 10.7 H (3.8-10.6) k/uL RBC 2.11 L (4.30-5.90) m/uL Hgb 6.1 L* (13.0-17.5) gm/dL Hct 19.5 L* (39.0-53.0) % Plt Count (150-450) k/uL Neutrophils # 8.6 H (1.3-7.7) k/uL Lymphocytes # (1.0-4.8) k/uL APTT (22.0-30.0) sec ABG pH 7.28 L (7.35-7.45) ABG pCO2 48 H (35-45) mmHg ABG pO2 152 H (83-108) mmHg ABG HCO3 (21-25) mmol/L ABG Total CO2 (19-24) mmol/L ABG O2 Saturation 98.6 H (94-97) % ABG Hematocrit (34.0-46.0) % ABG Potassium (3.4-4.5) mmol/L ABG Ionized Calcium (4.5-5.3) mg/dL ABG Glucose (75-99) mg/dL ABG Lactic Acid (0.5-1.6) mmol/L Hemoglobin (13.0-17.5) gm/dL Chloride (98-107) mmol/L Glucose (74-99) mg/dL POC Glucose (mg/dL) (75-99) mg/dL Calcium (8.4-10.2) mg/dL Ionized Calcium Manny 4.4 L (4.5-5.3) mg/dL Total Protein (6.3-8.2) g/dL Arterial Blood Potassium (3.4-4.5) mmol/L Arterial Blood Glucose (75-99) mg/dL Crossmatch 12/13/21 12/13/21 12/13/21 Range/Units 18:18 18:55 19:00 WBC (3.8-10.6) k/uL RBC 2.00 L (4.30-5.90) m/uL Hgb 5.9 L* (13.0-17.5) gm/dL Hct 18.3 L* (39.0-53.0) % Plt Count (150-450) k/uL Neutrophils # 8.4 H (1.3-7.7) k/uL Lymphocytes # (1.0-4.8) k/uL APTT (22.0-30.0) sec ABG pH (7.35-7.45) ABG pCO2 (35-45) mmHg ABG pO2 (83-108) mmHg ABG HCO3 (21-25) mmol/L ABG Total CO2 (19-24) mmol/L ABG O2 Saturation (94-97) % ABG Hematocrit (34.0-46.0) % ABG Potassium (3.4-4.5) mmol/L ABG Ionized Calcium (4.5-5.3) mg/dL ABG Glucose (75-99) mg/dL ABG Lactic Acid (0.5-1.6) mmol/L Hemoglobin (13.0-17.5) gm/dL Chloride (98-107) mmol/L Glucose (74-99) mg/dL POC Glucose (mg/dL) 132 H 130 H (75-99) mg/dL Calcium (8.4-10.2) mg/dL Ionized Calcium Manny (4.5-5.3) mg/dL Total Protein (6.3-8.2) g/dL Arterial Blood Potassium (3.4-4.5) mmol/L Arterial Blood Glucose (75-99) mg/dL Crossmatch 12/13/21 12/13/21 12/13/21 Range/Units 20:10 20:58 21:04 WBC (3.8-10.6) k/uL RBC (4.30-5.90) m/uL Hgb (13.0-17.5) gm/dL Hct (39.0-53.0) % Plt Count (150-450) k/uL Neutrophils # (1.3-7.7) k/uL Lymphocytes # (1.0-4.8) k/uL APTT (22.0-30.0) sec ABG pH (7.35-7.45) ABG pCO2 (35-45) mmHg ABG pO2 (83-108) mmHg ABG HCO3 (21-25) mmol/L ABG Total CO2 (19-24) mmol/L ABG O2 Saturation (94-97) % ABG Hematocrit (34.0-46.0) % ABG Potassium (3.4-4.5) mmol/L ABG Ionized Calcium (4.5-5.3) mg/dL ABG Glucose (75-99) mg/dL ABG Lactic Acid (0.5-1.6) mmol/L Hemoglobin (13.0-17.5) gm/dL Chloride (98-107) mmol/L Glucose (74-99) mg/dL POC Glucose (mg/dL) 129 H 137 H (75-99) mg/dL Calcium (8.4-10.2) mg/dL Ionized Calcium Manny (4.5-5.3) mg/dL Total Protein (6.3-8.2) g/dL Arterial Blood Potassium (3.4-4.5) mmol/L Arterial Blood Glucose (75-99) mg/dL Crossmatch See Detail 12/13/21 12/13/21 12/14/21 Range/Units 21:53 23:04 00:05 WBC (3.8-10.6) k/uL RBC (4.30-5.90) m/uL Hgb (13.0-17.5) gm/dL Hct (39.0-53.0) % Plt Count (150-450) k/uL Neutrophils # (1.3-7.7) k/uL Lymphocytes # (1.0-4.8) k/uL APTT (22.0-30.0) sec ABG pH (7.35-7.45) ABG pCO2 (35-45) mmHg ABG pO2 (83-108) mmHg ABG HCO3 (21-25) mmol/L ABG Total CO2 (19-24) mmol/L ABG O2 Saturation (94-97) % ABG Hematocrit (34.0-46.0) % ABG Potassium (3.4-4.5) mmol/L ABG Ionized Calcium (4.5-5.3) mg/dL ABG Glucose (75-99) mg/dL ABG Lactic Acid (0.5-1.6) mmol/L Hemoglobin (13.0-17.5) gm/dL Chloride (98-107) mmol/L Glucose (74-99) mg/dL POC Glucose (mg/dL) 130 H 125 H 117 H (75-99) mg/dL Calcium (8.4-10.2) mg/dL Ionized Calcium Manny (4.5-5.3) mg/dL Total Protein (6.3-8.2) g/dL Arterial Blood Potassium (3.4-4.5) mmol/L Arterial Blood Glucose (75-99) mg/dL Crossmatch 12/14/21 12/14/21 12/14/21 Range/Units 00:59 02:00 02:02 WBC (3.8-10.6) k/uL RBC 2.28 L (4.30-5.90) m/uL Hgb 6.7 L* (13.0-17.5) gm/dL Hct 20.5 L (39.0-53.0) % Plt Count 126 L (150-450) k/uL Neutrophils # (1.3-7.7) k/uL Lymphocytes # (1.0-4.8) k/uL APTT (22.0-30.0) sec ABG pH (7.35-7.45) ABG pCO2 (35-45) mmHg ABG pO2 (83-108) mmHg ABG HCO3 (21-25) mmol/L ABG Total CO2 (19-24) mmol/L ABG O2 Saturation (94-97) % ABG Hematocrit (34.0-46.0) % ABG Potassium (3.4-4.5) mmol/L ABG Ionized Calcium (4.5-5.3) mg/dL ABG Glucose (75-99) mg/dL ABG Lactic Acid (0.5-1.6) mmol/L Hemoglobin (13.0-17.5) gm/dL Chloride (98-107) mmol/L Glucose (74-99) mg/dL POC Glucose (mg/dL) 108 H 131 H (75-99) mg/dL Calcium (8.4-10.2) mg/dL Ionized Calcium Manny (4.5-5.3) mg/dL Total Protein (6.3-8.2) g/dL Arterial Blood Potassium (3.4-4.5) mmol/L Arterial Blood Glucose (75-99) mg/dL Crossmatch 12/14/21 12/14/21 12/14/21 Range/Units 03:12 04:02 04:23 WBC (3.8-10.6) k/uL RBC (4.30-5.90) m/uL Hgb (13.0-17.5) gm/dL Hct (39.0-53.0) % Plt Count (150-450) k/uL Neutrophils # (1.3-7.7) k/uL Lymphocytes # (1.0-4.8) k/uL APTT (22.0-30.0) sec ABG pH (7.35-7.45) ABG pCO2 (35-45) mmHg ABG pO2 (83-108) mmHg ABG HCO3 (21-25) mmol/L ABG Total CO2 (19-24) mmol/L ABG O2 Saturation (94-97) % ABG Hematocrit (34.0-46.0) % ABG Potassium (3.4-4.5) mmol/L ABG Ionized Calcium (4.5-5.3) mg/dL ABG Glucose (75-99) mg/dL ABG Lactic Acid (0.5-1.6) mmol/L Hemoglobin (13.0-17.5) gm/dL Chloride 108 H (98-107) mmol/L Glucose 105 H (74-99) mg/dL POC Glucose (mg/dL) 126 H 117 H (75-99) mg/dL Calcium 7.0 L (8.4-10.2) mg/dL Ionized Calcium Manny 4.4 L (4.5-5.3) mg/dL Total Protein 5.2 L (6.3-8.2) g/dL Arterial Blood Potassium (3.4-4.5) mmol/L Arterial Blood Glucose (75-99) mg/dL Crossmatch 12/14/21 12/14/21 12/14/21 Range/Units 05:01 05:54 06:49 WBC (3.8-10.6) k/uL RBC (4.30-5.90) m/uL Hgb (13.0-17.5) gm/dL Hct (39.0-53.0) % Plt Count (150-450) k/uL Neutrophils # (1.3-7.7) k/uL Lymphocytes # (1.0-4.8) k/uL APTT (22.0-30.0) sec ABG pH (7.35-7.45) ABG pCO2 (35-45) mmHg ABG pO2 (83-108) mmHg ABG HCO3 (21-25) mmol/L ABG Total CO2 (19-24) mmol/L ABG O2 Saturation (94-97) % ABG Hematocrit (34.0-46.0) % ABG Potassium (3.4-4.5) mmol/L ABG Ionized Calcium (4.5-5.3) mg/dL ABG Glucose (75-99) mg/dL ABG Lactic Acid (0.5-1.6) mmol/L Hemoglobin (13.0-17.5) gm/dL Chloride (98-107) mmol/L Glucose (74-99) mg/dL POC Glucose (mg/dL) 133 H 126 H 120 H (75-99) mg/dL Calcium (8.4-10.2) mg/dL Ionized Calcium Manny (4.5-5.3) mg/dL Total Protein (6.3-8.2) g/dL Arterial Blood Potassium (3.4-4.5) mmol/L Arterial Blood Glucose (75-99) mg/dL Crossmatch 12/14/21 12/14/21 12/14/21 Range/Units 06:50 08:08 09:05 WBC (3.8-10.6) k/uL RBC 2.55 L (4.30-5.90) m/uL Hgb 7.4 L (13.0-17.5) gm/dL Hct 23.0 L (39.0-53.0) % Plt Count 120 L (150-450) k/uL Neutrophils # (1.3-7.7) k/uL Lymphocytes # 0.9 L (1.0-4.8) k/uL APTT (22.0-30.0) sec ABG pH (7.35-7.45) ABG pCO2 (35-45) mmHg ABG pO2 (83-108) mmHg ABG HCO3 (21-25) mmol/L ABG Total CO2 (19-24) mmol/L ABG O2 Saturation (94-97) % ABG Hematocrit (34.0-46.0) % ABG Potassium (3.4-4.5) mmol/L ABG Ionized Calcium (4.5-5.3) mg/dL ABG Glucose (75-99) mg/dL ABG Lactic Acid (0.5-1.6) mmol/L Hemoglobin (13.0-17.5) gm/dL Chloride (98-107) mmol/L Glucose (74-99) mg/dL POC Glucose (mg/dL) 205 H 177 H (75-99) mg/dL Calcium (8.4-10.2) mg/dL Ionized Calcium Manny (4.5-5.3) mg/dL Total Protein (6.3-8.2) g/dL Arterial Blood Potassium (3.4-4.5) mmol/L Arterial Blood Glucose (75-99) mg/dL Crossmatch Assessment and Plan Plan: Assessment: #1. Severe aortic valve stenosis, status post aortic valve replacement using a 23 mm is for his pericardial bioprosthesis, stage appendage exclusion, sternal closure, and intraoperative transesophageal echocardiogram on 12/13/2021 patient is postop day #1 extubated to nasal cannula. Initially post extubation, the pa tient required BiPAP and subsequently was taken off the BiPAP. #2. Fatigue, shortness of breath, related to severe aortic valve stenosis and history of coronary artery disease with previous stenting of the LAD #3. Acute hypoxic/hypercapnic respiratory failure, expected outcome post surgery. The patient is currently on 2 L about 2 by nasal cannula. He does have underlying obstructive sleep apnea maintained on CPAP on outpatient basis. Chest x-ray showing cardiomegaly, increased interstitial edema and small bilateral pleural effusions. Chest tubes are in good location for now. Patient is awake and alert and there is no signs of any CO2 narcosis. #4. History of smoking, preop FEV1 was 2.27 L or 70% of predicted #5. Morbid obesity with BMI 35.3 kg/m #6. Hypertension #7. Hyperlipidemia #8. Obstructive sleep apnea on CPAP #9. History of coronary artery disease with previous stenting of the LAD #10, anemia, anticipated outcome for surgery, dilutional and intraoperative blood loss and the patient received a total of 3 units of packed RBCs. Plan: Hemodynamic parameters stable and the patient's [place]-Miles catheter can be removed Incentive spirometer Used BiPAP overnight at a pressure of 10/5 cm of water Lasix 40 mg IV 1 Monitor output from the chest tubes Hemodynamically stable and the patient's cardiac rhythm is sinus Less of the blood work and electrodes are normal. We'll continue to follow.
--- NOTE | 2021-12-14 11:11 | P.CRDCN ---
History of Present Illness Consult date: 12/14/21 History of present illness: This is a 66-year-old gentleman with history of hypertension, diabetes, obesity and hyperlipidemia with history of ischemic heart disease and stent placement to the LAD done at [facility]. Patient has been having exertional dyspnea and was noted to have moderate to severe aortic stenosis. Recent evaluation showed a mean gradient of 40 mmHg across the aortic valve and also moderate mitral regurgitation. Cardiac catheterization showed mild in- stent stenosis of the LAD with total occluded distal LAD. Patient underwent aortic valve replacement. Patient is currently extubated. Patient was anemic requiring 2 units of blood transfusion. Waiting for the follow-up CBC. Complaints of chest discomfort and some shortness of breath. Doesn't appear to be in acute distress. His cardiac output was in the range of 7.2 L. No significant arrhythmias. Overall patient seemed to be progressing well. Patient apparently has been having some coughing spells associated with near- syncope. However this is not associated with bradycardia and patient has and uses pacemaker. Continue monitor his heart rhythm. Rule out any bradyarrhythmias. Rest of the management to be continued continued including incentive spirometry Review of Systems As per the chart Past Medical History Past Medical History: Diabetes Mellitus, Sleep Apnea/CPAP/BIPAP Additional Past Medical History / Comment(s): C-PAP MACHINE, SEE CARDIOLOGY H & P History of Any Multi-Drug Resistant Organisms: None Reported Past Surgical History: Heart Catheterization, Heart Catheterization With Stent, Hernia Repair Additional Past Surgical History / Comment(s): FX ARM SURGERY (CHILD)., UM BILICAL HERNIA, FOOT SURGERY FOR TORN TENDONS., STATES HEART CATH AT [facility] AND HEART CATH WITH STENTS AT [facility] (08/2020) Past Anesthesia/Blood Transfusion Reactions: No Reported Reaction Date of Last Stent Placement:: 08/2020 Smoking Status: Current every day smoker Additional Past Alcohol Use History / Comment(s): SMOKES 5 CIGARETTES/DAILY- TRYING TO QUIT, HX OF SMOKING OFF AND ON - Past Family History Mother Family Medical History: No Reported History Additional Family Medical History / Comment(s): maternal grandmother and aunt- breast CA Medications and Allergies Home Medications Medication Instructions Recorded Confirmed Type Aspirin [Adult Low Dose Aspirin EC] 81 mg PO DAILY 08/30/21 12/11/21 History Atorvastatin [Lipitor] 80 mg PO DAILY 08/30/21 12/11/21 History Clopidogrel [Plavix] 75 mg PO DAILY 08/30/21 12/11/21 History FLUoxetine HCL [PROzac] 10 mg PO QAM 08/30/21 12/11/21 History Furosemide [Lasix] 40 mg PO DAILY 08/30/21 12/11/21 History Insulin Aspart [NovoLOG Flexpen] 10 units SQ TID-W/MEALS PRN 08/30/21 12/11/21 History Insulin Glargine,Hum.rec.anlog 45 unit SQ QAM 08/30/21 12/11/21 History [Basaglar Kwikpen U-100] Lisinopril [Prinivil] 10 mg PO BID 08/30/21 12/11/21 History Metoprolol Tartrate 25 mg PO DAILY 08/30/21 12/11/21 History Multivit-Min/FA/Lycopen/Lutein 1 each PO DAILY 08/30/21 12/11/21 History [Centrum Silver Tablet] metFORMIN HCL [Glucophage] 1,000 mg PO BID 08/30/21 12/11/21 History Albuterol Inhaler [Ventolin Hfa 2 puff INHALATION RT-QID PRN 11/22/21 12/11/21 History Inhaler] Mupirocin [Mupirocin 2%] 1 applic NASAL BID #1 tub 12/05/21 12/11/21 Rx Allergies Allergy/AdvReac Type Severity Reaction Status Date / Time No Known Allergies Allergy Verified 12/13/21 06:00 Physical Exam Vitals: Vital Signs Temp Pulse Pulse Resp BP Pulse Ox FiO2 12/14/21 10:15 69 21 124/52 96 12/14/21 10:00 70 17 96 12/14/21 09:45 68 21 95 12/14/21 09:30 68 19 94 L 12/14/21 09:18 37.2 F L 71 23 116/36 94 L 12/14/21 09:15 70 21 109/50 93 L 12/14/21 09:04 80 10 L 12/14/21 09:00 113 H 13 110/54 94 L 12/14/21 08:48 37.3 F L 72 16 115/39 97 12/14/21 08:47 40 12/14/21 08:45 72 18 110/54 98 12/14/21 08:42 73 11 L 98 05/27/22 08:38 37.3 F L 73 21 117/40 96 12/14/21 08:30 74 19 110/54 95 12/14/21 08:15 75 26 H 110/54 96 12/14/21 08:00 37.3 F L 80 19 111/58 95 12/14/21 07:45 87 14 111/58 86 L 12/14/21 07:30 86 15 111/58 94 L 12/14/21 07:15 70 23 111/58 96 12/14/21 07:00 67 21 96 12/14/21 06:45 75 31 H 96 12/14/21 06:30 70 25 H 96 12/14/21 06:15 69 19 95/52 96 12/14/21 06:00 74 38 H 95 12/14/21 05:45 77 18 113/51 94 L 12/14/21 05:30 71 10 L 97 12/14/21 05:27 37.3 F L 71 20 110/40 97 12/14/21 05:15 72 25 H 96 12/14/21 05:00 85 19 119/56 90 L 12/14/21 04:45 80 30 H 116/54 91 L 12/14/21 04:30 73 25 H 116/54 94 L 12/14/21 04:15 66 25 H 116/54 96 12/14/21 04:00 98.5 F 72 19 97 40 12/14/21 03:48 98.6 F 68 15 114/48 96 12/14/21 03:45 68 16 98 12/14/21 03:33 40 12/14/21 03:30 69 20 98 12/14/21 03:20 68 31 H 98 12/14/21 03:15 71 22 99 12/14/21 03:00 65 20 98 12/14/21 02:45 67 17 98 12/14/21 02:30 67 18 99 12/14/21 02:15 71 21 98 12/14/21 02:00 72 20 99 12/14/21 01:45 64 18 98 12/14/21 01:30 63 19 98 12/14/21 01:15 65 19 97 12/14/21 01:00 62 19 98 12/14/21 00:45 64 18 99 12/14/21 00:30 66 19 100 12/14/21 00:17 71 35 H 99 12/14/21 00:15 67 21 98 12/14/21 00:00 98.6 F 65 19 99 40 12/13/21 23:45 66 20 98 12/13/21 23:30 67 20 99 12/13/21 23:22 40 12/13/21 23:20 68 24 95 12/13/21 23:10 68 16 116/54 98 12/13/21 23:00 67 23 116/54 98 12/13/21 22:45 68 23 97 12/13/21 22:30 68 23 97 12/13/21 22:15 69 21 96 12/13/21 22:00 71 24 95 12/13/21 21:45 68 20 97 12/13/21 21:30 69 21 96 12/13/21 21:15 66 21 98 12/13/21 21:00 70 23 96 12/13/21 20:45 74 19 97 12/13/21 20:30 80 12 96 12/13/21 20:28 94 L 12/13/21 20:15 60 20 100 12/13/21 20:02 40 12/13/21 20:01 60 12/13/21 20:00 97.8 F 65 27 H 100 40 12/13/21 19:45 59 L 20 100 12/13/21 19:30 59 L 14 100 12/13/21 19:15 61 17 99 12/13/21 19:00 36.3 F L 60 19 100 40 12/13/21 18:45 57 L 19 100 12/13/21 18:30 60 20 100 12/13/21 18:15 63 23 100 12/13/21 18:00 63 24 100 40 12/13/21 17:45 69 18 100 12/13/21 17:30 79 25 H 98 12/13/21 17:29 40 12/13/21 17:15 78 18 99 40 12/13/21 17:10 50 12/13/21 17:00 35.7 F L 83 15 99 60 12/13/21 16:45 76 15 98 60 12/13/21 16:39 60 12/13/21 16:38 60 12/13/21 16:30 98 19 95 70 12/13/21 16:15 82 16 94 L 12/13/21 16:00 35.7 F L 93 15 100 12/13/21 15:45 79 21 98 12/13/21 15:30 80 22 99 12/13/21 15:15 81 18 97 12/13/21 15:00 66 22 99 12/13/21 14:45 72 17 99 12/13/21 14:38 50 12/13/21 14:37 70 22 12/13/21 14:30 70 18 99 12/13/21 14:15 65 18 97 12/13/21 14:00 62 16 99 12/13/21 13:56 50 12/13/21 13:45 74 16 99 12/13/21 13:30 35.6 F L 72 16 99 12/13/21 13:22 100 12/13/21 13:15 61 100 Intake and Output 12/13/21 12/14/21 12/14/21 22:59 06:59 14:59 Intake Total 2843.497 5482.795 458.161 Output Total 420 454 140 Balance 713.358 9573.795 318.161 Intake: IV 823 701 197 Albumin Human 5% 250 ml @ 250 0 mls/hr IVPB .[facility] Rx#:[id number] Cardiac Output 0.9 Sodium 160 170 20 Chloride Pressure Bag 0.9 Sodium 63 81 27 Chloride Sodium Chloride 0.9% 1, 350 450 150 000 ml @ 50 mls/hr IV . Q20H [facility] Rx#:[id number] Intake, IV Titration 217.537 100.795 11.161 Amount Insulin Regular 100 unit 34.063 20.714 11.161 In Sodium Chloride 0.9% 100 ml @ Per Protocol IV .Q0M [facility] Rx#:[id number] Norepinephrine 4 mg In 183.474 80.081 Sodium Chloride 0.9% 250 ml @ 0.02 MCG/KG/MIN 8. 504 mls/hr IV .Q24H [facility] Rx#:[id number] Oral 240 250 Blood Product 0 620 0 Rc As-1 Unit 0 310 [id number] Rc As-1 Unit 0 [id number] Rc As-1 Unit 310 [id number] Other 100 Rc As-1 Unit 100 [id number] Output: Chest Tube Drainage 75 49 20 Bilateral Mediastinal 75 49 20 Urine 345 405 120 Other: Voiding Method Indwelling Catheter Indwelling Catheter Weight 115.7 kg ABP, PAP, CO, CI - Last 8 Hours Arterial Blood Pressure 119/42 Arterial Blood Pressure 96/59 Arterial Blood Pressure 110/40 Arterial Blood Pressure 110/38 Arterial Blood Pressure 115/37 Arterial Blood Pressure 98/46 Arterial Blood Pressure 100/38 Arterial Blood Pressure 115/27 Arterial Blood Pressure 105/43 Arterial Blood Pressure 103/45 Arterial Blood Pressure 106/43 Arterial Blood Pressure 106/47 Arterial Blood Pressure 112/38 Arterial Blood Pressure 110/45 Arterial Blood Pressure 103/46 Arterial Blood Pressure 108/39 Arterial Blood Pressure 111/45 Arterial Blood Pressure 97/39 Arterial Blood Pressure 131/48 Arterial Blood Pressure 124/41 Arterial Blood Pressure 113/39 Arterial Blood Pressure 27/26 Arterial Blood Pressure 102/44 Arterial Blood Pressure 116/51 Arterial Blood Pressure 114/47 Arterial Blood Pressure 94/44 Arterial Blood Pressure 112/47 Arterial Blood Pressure 108/46 Arterial Blood Pressure 120/51 Arterial Blood Pressure 114/50 Pulmonary Artery Pressure 35/9 Pulmonary Artery Pressure 41/9 Pulmonary Artery Pressure 33/8 Pulmonary Artery Pressure 30/9 Pulmonary Artery Pressure 26/7 Pulmonary Artery Pressure 40/15 Pulmonary Artery Pressure 26/4 Pulmonary Artery Pressure 38/10 Pulmonary Artery Pressure 33/9 Pulmonary Artery Pressure 37/15 Pulmonary Artery Pressure 39/15 Pulmonary Artery Pressure 41/19 Pulmonary Artery Pressure 35/13 Pulmonary Artery Pressure 35/15 Pulmonary Artery Pressure 41/14 Pulmonary Artery Pressure 36/14 Pulmonary Artery Pressure 33/11 Pulmonary Artery Pressure 34/13 Pulmonary Artery Pressure 39/14 Pulmonary Artery Pressure 26/6 Pulmonary Artery Pressure 21/4 Pulmonary Artery Pressure 25/4 Pulmonary Artery Pressure 42/13 Pulmonary Artery Pressure 48/19 Pulmonary Artery Pressure 44/16 Pulmonary Artery Pressure 35/12 Pulmonary Artery Pressure 35/16 Pulmonary Artery Pressure 31/15 Pulmonary Artery Pressure 37/20 Pulmonary Artery Pressure 38/18 Cardiac Output 8.1 Cardiac Output 7.8 Cardiac Output 7.9 Cardiac Index 3.6 Cardiac Index 3.4 Cardiac Index 3.5 GENERAL EXAM: Patient is alert and oriented and doesn't appear to be in any acute distress HEENT: Normocephalic. Normal reaction of pupils, equal size, normal range of extraocular motion. No erythema or exudates in the throat. NECK: No masses, no nuchal rigidity. CHEST: Postsurgical LUNGS: Diminished air entry HEART: S1 and S2 normal with no audible mumurs or gallops. Regular rhythm, femorals equal on both sides.. ABDOMEN: No hepatosplenomegaly, normal bowel sounds, no guarding or rigidity. SKIN: No rashes CENTRAL NERVOUS SYSTEM: No focal deficits. EXTREMITIES: No cyanosis, clubbing or edema. Results 12/14/21 06:50 12/14/21 04:23 Cardiac Enzymes 12/13/21 12/14/21 Range/Units 13:18 04:23 AST 30 40 (17-59) U/L Coagulation 12/13/21 Range/Units 13:18 PT 11.9 (9.0-12.0) sec APTT 33.2 H (22.0-30.0) sec CBC 12/13/21 12/13/21 12/13/21 Range/Units 13:18 17:22 18:55 WBC 11.3 H 10.7 H 10.3 (3.8-10.6) k/uL RBC 2.52 L 2.11 L 2.00 L (4.30-5.90) m/uL Hgb 7.4 L 6.1 L* 5.9 L* (13.0-17.5) gm/dL Hct 23.3 L 19.5 L* 18.3 L* (39.0-53.0) % Plt Count 185 186 185 (150-450) k/uL 12/14/21 12/14/21 Range/Units 02:02 06:50 WBC 7.4 6.5 (3.8-10.6) k/uL RBC 2.28 L 2.55 L (4.30-5.90) m/uL Hgb 6.7 L* 7.4 L (13.0-17.5) gm/dL Hct 20.5 L 23.0 L (39.0-53.0) % Plt Count 126 L 120 L (150-450) k/uL Comprehensive Metabolic Panel 12/13/21 12/14/21 Range/Units 13:18 04:23 Sodium 138 139 (137-145) mmol/L Potassium 5.1 5.1 (3.5-5.1) mmol/L Chloride 108 H 108 H (98-107) mmol/L Carbon Dioxide 24 24 (22-30) mmol/L BUN 14 19 (9-20) mg/dL Creatinine 0.95 1.13 (0.66-1.25) mg/dL Glucose 139 H 105 H (74-99) mg/dL Calcium 7.1 L 7.0 L (8.4-10.2) mg/dL AST 30 40 (17-59) U/L ALT 15 15 (4-49) U/L Alkaline Phosphatase 60 45 (38-126) U/L Total Protein 5.3 L 5.2 L (6.3-8.2) g/dL Albumin 3.7 3.5 (3.5-5.0) g/dL Current Medications Generic Name Dose Route Start Last Admin Trade Name Freq PRN Reason Stop Dose Admin Hydrocodone Bitart/Acetaminophen 1 each 12/14/21 07:22 Hydrocodone/Apap 10-325mg 1 Each Tab PO Q4HR PRN Moderate Pain Hydrocodone Bitart/Acetaminophen 2 each 12/14/21 07:22 12/14/21 08:48 Hydrocodone/Apap 10-325mg 1 Each Tab PO 2 each Q4HR PRN Administration Severe Pain Albuterol/Ipratropium 3 ml 12/13/21 16:03 Ipratropium-Albuterol 3 Ml Neb INHALATION RT-Q2H PRN Shortness Of Breath Or Wheezing Albuterol/Ipratropium 3 ml 12/14/21 08:00 12/14/21 08:42 Ipratropium-Albuterol 3 Ml Neb INHALATION 3 ml RT-QID [facility] Administration Aspirin 81 mg 12/14/21 09:00 12/14/21 09:19 Aspirin 81 Mg PO 81 mg DAILY [facility] Administration Atorvastatin Calcium 40 mg 12/14/21 09:00 12/14/21 09:06 Atorvastatin 40 Mg Tab PO 40 mg DAILY [facility] Administration Benzocaine/Menthol 1 each 12/13/21 16:03 Benzocaine/Menthol Lozeng 1 Each Lozenge MUCOUS MEM Q2H PRN Sore Throat Bisacodyl 10 mg 12/14/21 09:00 Bisacodyl 10 Mg Supp RECTAL DAILY PRN Constipation Clopidogrel Bisulfate 75 mg 12/14/21 09:00 12/14/21 09:06 Clopidogrel 75 Mg Tab PO 75 mg DAILY [facility] Administration Fluoxetine HCl 10 mg 12/14/21 09:00 12/14/21 09:06 Fluoxetine Hcl 10 Mg Cap PO 10 mg QAM [facility] Administration Heparin Sodium (Porcine) 5,000 unit 12/13/21 16:03 12/14/21 08:50 Heparin Sodium,Porcine/Pf 5,000 Unit/0.5 Ml Syringe SQ 5,000 unit Q8HR [facility] Administration Norepinephrine Bitartrate 4 mg 254 mls @ 8.504 mls/hr 12/13/21 16:03 12/14/21 06:56 / Sodium Chloride IV 0.2 mcg/kg/min .Q24H [facility] 85.039 mls/hr Titration Protocol 0.02 MCG/KG/MIN Amiodarone HCl 150 mg/ 103 mls @ 618 mls/hr 12/13/21 16:03 Dextrose/Water IV .Q10M PRN A.FIB/FLUTTER Protocol Amiodarone HCl 360 mg/ 207.2 mls @ 34.533 mls/hr 12/13/21 16:03 Dextrose/Water IV .Q6H PRN A.FIB/FLUTTER Protocol 1 MG/MIN Amiodarone HCl 450 mg/ 250 mls @ 16.667 mls/hr 12/13/21 22:00 Dextrose/Water IV .Q15H PRN A.FIB/FLUTTER Protocol 0.5 MG/MIN Albumin Human 250 ml/ IV 250 mls @ 250 mls/hr 12/13/21 16:03 12/14/21 05:14 Solution IVPB 12/15/21 16:04 250 mls/hr Q1HR PRN Administration For Volume Protocol Insulin Human Regular 100 unit 101 mls @ 0 mls/hr 12/13/21 16:03 12/14/21 09:29 / Sodium Chloride IV 5.5 unit/hr .Q0M [facility] 5.555 mls/hr Titration Protocol Per Protocol Sodium Chloride 1,000 mls @ 50 mls/hr 12/13/21 16:03 12/13/21 13:09 Saline 0.9% IV 50 mls/hr .Q20H [facility] Administration Magnesium Hydroxide 2,400 mg 12/14/21 09:00 Magnesium Hydroxide 2,400 Mg/10 Ml Cup PO BID PRN Constipation Metoclopramide HCl 10 mg 12/13/21 16:03 Metoclopramide 5 Mg/Ml 2 Ml Vial IVP Q4H PRN Nausea And Vomiting Metoprolol Tartrate 12.5 mg 12/14/21 21:00 Metoprolol Tartrate 12.5 Mg Tab PO BID [facility] Miscellaneous Information 1 each 12/13/21 16:03 Potassium Replacement Protocol 1 Each Misc MISCELLANE DAILY PRN Per Protocol Protocol Miscellaneous Information 1 each 12/13/21 16:03 Magnesium Replacement Protocol 1 Each Misc MISCELLANE DAILY PRN Per Protocol Protocol Miscellaneous Information 1 each 12/13/21 16:03 Phosphorus Replacement Protoco 1 Each Misc MISCELLANE DAILY PRN Per Protocol Protocol Multivitamins 1 each 12/14/21 09:00 12/14/21 09:06 Multivitamins, Thera 1 Each Tab PO 1 each DAILY [facility] Administration Ondansetron HCl 4 mg 12/13/21 16:03 Ondansetron 4 Mg/2 Ml Vial IVP Q6HR PRN Nausea And Vomiting Pantoprazole Sodium 40 mg 12/14/21 09:00 12/14/21 08:50 Pantoprazole 40 Mg/10 Ml Vial IVP 40 mg DAILY [facility] Administration Senna/Docusate Sodium 2 each 12/14/21 21:00 Sennosides-Docusate Sodium 1 Each Tab PO HS [facility] Sodium Chloride 10 ml 12/13/21 21:00 12/14/21 09:06 Sodium Chloride 0.9% Flush 10 Ml Syringe IV 10 ml BID [facility] Administration Intake and Output 12/13/21 12/14/21 12/14/21 22:59 06:59 14:59 Intake Total 3441.289 9802.795 458.161 Output Total 420 454 140 Balance 124.455 2114.795 318.161 Intake: IV 823 701 197 Albumin Human 5% 250 ml @ 250 0 mls/hr IVPB .[facility] Rx#:[id number] Cardiac Output 0.9 Sodium 160 170 20 Chloride Pressure Bag 0.9 Sodium 63 81 27 Chloride Sodium Chloride 0.9% 1, 350 450 150 000 ml @ 50 mls/hr IV . Q20H [facility] Rx#:[id number] Intake, IV Titration 217.537 100.795 11.161 Amount Insulin Regular 100 unit 34.063 20.714 11.161 In Sodium Chloride 0.9% 100 ml @ Per Protocol IV .Q0M [facility] Rx#:[id number] Norepinephrine 4 mg In 183.474 80.081 Sodium Chloride 0.9% 250 ml @ 0.02 MCG/KG/MIN 8. 504 mls/hr IV .Q24H [facility] Rx#:[id number] Oral 240 250 Blood Product 0 620 0 Rc As-1 Unit 0 310 [id number] Rc As-1 Unit 0 [id number] Rc As-1 Unit 310 [id number] Other 100 Rc As-1 Unit 100 [id number] Output: Chest Tube Drainage 75 49 20 Bilateral Mediastinal 75 49 20 Urine 345 405 120 Other: Voiding Method Indwelling Catheter Indwelling Catheter Weight 115.7 kg 12/14/21 06:50 12/14/21 04:23 Assessment and Plan (1) Status post aortic valve replacement Current Visit: Yes Status: Acute Code(s): Z95.2 - PRESENCE OF PROSTHETIC HEART VALVE SNOMED Code(s): 2744003612854 (2) CAD (coronary artery disease) Current Visit: Yes Status: Acute Code(s): I25.10 - ATHSCL HEART DISEASE OF [place] CORONARY ARTERY W/O ANG PCTRS SNOMED Code(s): 03818304 (3) Essential hypertension Current Visit: Yes Status: Acute Code(s): I10 - ESSENTIAL (PRIMARY) HYPERTENSION SNOMED Code(s): 05903741 (4) Hypercholesterolemia Current Visit: Yes Status: Acute Code(s): E78.00 - PURE HYPERCHOLESTEROLEMIA, UNSPECIFIED SNOMED Code(s): 61405100 Plan: Continue current management. Incentive spirometry. Monitor CBC. Further recommendation depending on the clinical
[2021-12-14 11:19] LABS: Glucose,Whole Blood 105 mg/dL (75-99)
[2021-12-14 11:45] VITALS: BMI 36.6
[2021-12-14] MEDS ORDERED: FUROSEMIDE 10 MG/ML 2 ML VIAL IV STA (12:08)
[2021-12-14 12:15] LABS: Glucose,Whole Blood 124 mg/dL (75-99)
--- NOTE | 2021-12-14 12:29 | P.PN ---
Subjective Progress Note Date: 12/14/21 Principal diagnosis: Status post aortic valve replacement Patient is a 66-year-old male for history of diabetes, hypertension, dyslipidemia, FRANCISCO, tobacco abuse, coronary artery disease with a totally occluded LAD status post stenting at [facility], and severe aortic stenosis who presented for elective aortic valve replacement. Patient is status post aortic valve replacement surgery. Bilateral chest tubes in place. Seen and examined at bedside. Overnight course and events discussed. Patient reports mild shortness of breath on exertion, denies any chest pain. No fever or chills. On supplemental oxygen by nasal cannula. On IV Levophed and insulin drip. Objective - Vital Signs Vital signs: Vital Signs Temp 37.2 F L 12/14/21 09:18 Pulse 75 12/14/21 12:00 Resp 23 12/14/21 12:00 BP 107/58 12/14/21 12:00 Pulse Ox 97 12/14/21 12:00 FiO2 40 12/14/21 08:47 Intake & Output 12/13/21 12/14/21 12/14/21 18:59 06:59 18:59 Intake Total 8505.227 2406.347 823.836 Output Total 490 589 245 Balance 560.302 3515.347 578.836 Weight 115.7 kg 115.7 kg Intake: IV 1285 968 312 Albumin Human 5% 250 ml @ 750 0 mls/hr IVPB .[facility] Rx#:[id number] Cardiac Output 0.9 Sodium 70 260 20 Chloride Pressure Bag 0.9 Sodium 63 108 42 Chloride Sodium Chloride 0.9% 1, 350 600 250 000 ml @ 50 mls/hr IV . Q20H [facility] Rx#:[id number] Intake, IV Titration 46.005 274.347 261.836 Amount Insulin Regular 100 unit 24.745 32.052 21.160 In Sodium Chloride 0.9% 100 ml @ Per Protocol IV .Q0M [facility] Rx#:[id number] Norepinephrine 4 mg In 21.260 242.295 240.676 Sodium Chloride 0.9% 250 ml @ 0.02 MCG/KG/MIN 8. 504 mls/hr IV .Q24H [facility] Rx#:[id number] Oral 240 250 Blood Product 620 0 Rc As-1 Unit 310 [id number] Rc As-1 Unit 0 [id number] Rc As-1 Unit 310 [id number] Other 100 Rc As-1 Unit 100 [id number] Output: Chest Tube Drainage 110 74 40 Bilateral Mediastinal 110 74 40 Urine 380 515 205 Other: Voiding Method Indwelling Catheter Indwelling Catheter ABP, PAP, CO, CI - Last Documented Arterial Blood Pressure 119/42 Pulmonary Artery Pressure 27/10 Cardiac Output 8.1 Cardiac Index 3.6 - Exam Constitutional: No acute distress, on room air HEENT: Pupils equally reactive to light, atraumatic, normocephalic. Lungs: Bilaterally diminished air entry Cardiovascular: S1-S2 normal Abdominal: Soft, nontender, no guarding, rebound or rigidity Extremities: No cyanosis or clubbing Neuro: No focal neurological signs alert - Labs CBC & Chem 7: 12/14/21 06:50 12/14/21 04:23 Labs: Abnormal Lab Results - Last 24 Hours (Table) 12/07/21 12/13/21 12/13/21 Range/Units 11:03 08:30 09:33 WBC (3.8-10.6) k/uL RBC (4.30-5.90) m/uL Hgb (13.0-17.5) gm/dL Hct (39.0-53.0) % Plt Count (150-450) k/uL Neutrophils # (1.3-7.7) k/uL Lymphocytes # (1.0-4.8) k/uL APTT (22.0-30.0) sec ABG pH 7.34 L (7.35-7.45) ABG pCO2 51 H (35-45) mmHg ABG pO2 278 H 287 H (83-108) mmHg ABG HCO3 28 H (21-25) mmol/L ABG Total CO2 29 H (19-24) mmol/L ABG O2 Saturation 99.7 H 99.7 H (94-97) % ABG Hematocrit 31 L 25 L (34.0-46.0) % ABG Potassium 5.0 H (3.4-4.5) mmol/L ABG Ionized Calcium 4.1 L (4.5-5.3) mg/dL ABG Glucose 111 H (75-99) mg/dL ABG Lactic Acid (0.5-1.6) mmol/L Hemoglobin 10.2 L 8.2 L (13.0-17.5) gm/dL Chloride (98-107) mmol/L Glucose (74-99) mg/dL POC Glucose (mg/dL) (75-99) mg/dL Calcium (8.4-10.2) mg/dL Ionized Calcium Manny (4.5-5.3) mg/dL Total Protein (6.3-8.2) g/dL Arterial Blood Potassium 5.0 H (3.4-4.5) mmol/L Arterial Blood Glucose 111 H (75-99) mg/dL Crossmatch See Detail 12/13/21 12/13/21 12/13/21 Range/Units 09:38 10:05 10:15 WBC (3.8-10.6) k/uL RBC (4.30-5.90) m/uL Hgb (13.0-17.5) gm/dL Hct (39.0-53.0) % Plt Count (150-450) k/uL Neutrophils # (1.3-7.7) k/uL Lymphocytes # (1.0-4.8) k/uL APTT (22.0-30.0) sec ABG pH 7.32 L (7.35-7.45) ABG pCO2 48 H 50 H 46 H (35-45) mmHg ABG pO2 340 H 189 H 377 H (83-108) mmHg ABG HCO3 27 H 26 H 26 H (21-25) mmol/L ABG Total CO2 29 H 27 H 27 H (19-24) mmol/L ABG O2 Saturation 100.0 H 99.4 H 99.9 H (94-97) % ABG Hematocrit 30 L 25 L 25 L (34.0-46.0) % ABG Potassium 4.9 H 5.5 H 5.2 H (3.4-4.5) mmol/L ABG Ionized Calcium 4.3 L 4.3 L (4.5-5.3) mg/dL ABG Glucose 110 H 128 H 136 H (75-99) mg/dL ABG Lactic Acid (0.5-1.6) mmol/L Hemoglobin 9.7 L 8.0 L 8.2 L (13.0-17.5) gm/dL Chloride (98-107) mmol/L Glucose (74-99) mg/dL POC Glucose (mg/dL) (75-99) mg/dL Calcium (8.4-10.2) mg/dL Ionized Calcium Manny (4.5-5.3) mg/dL Total Protein (6.3-8.2) g/dL Arterial Blood Potassium 4.9 H 5.5 H 5.2 H (3.4-4.5) mmol/L Arterial Blood Glucose 110 H 128 H 136 H (75-99) mg/dL Crossmatch 12/13/21 12/13/21 12/13/21 Range/Units 10:48 11:27 12:20 WBC (3.8-10.6) k/uL RBC (4.30-5.90) m/uL Hgb (13.0-17.5) gm/dL Hct (39.0-53.0) % Plt Count (150-450) k/uL Neutrophils # (1.3-7.7) k/uL Lymphocytes # (1.0-4.8) k/uL APTT (22.0-30.0) sec ABG pH 7.21 L (7.35-7.45) ABG pCO2 66 H (35-45) mmHg ABG pO2 277 H 339 H 80 L (83-108) mmHg ABG HCO3 26 H 26 H (21-25) mmol/L ABG Total CO2 27 H 26 H 28 H (19-24) mmol/L ABG O2 Saturation 99.7 H 99.9 H (94-97) % ABG Hematocrit 25 L 23 L 24 L (34.0-46.0) % ABG Potassium 5.8 H 5.7 H 5.1 H (3.4-4.5) mmol/L ABG Ionized Calcium 4.2 L 4.0 L 4.4 L (4.5-5.3) mg/dL ABG Glucose 154 H 172 H 149 H (75-99) mg/dL ABG Lactic Acid 1.9 H 1.7 H (0.5-1.6) mmol/L Hemoglobin 8.1 L 7.4 L 7.9 L (13.0-17.5) gm/dL Chloride (98-107) mmol/L Glucose (74-99) mg/dL POC Glucose (mg/dL) (75-99) mg/dL Calcium (8.4-10.2) mg/dL Ionized Calcium Manny (4.5-5.3) mg/dL Total Protein (6.3-8.2) g/dL Arterial Blood Potassium 5.8 H 5.7 H 5.1 H (3.4-4.5) mmol/L Arterial Blood Glucose 154 H 172 H 149 H (75-99) mg/dL Crossmatch 12/13/21 12/13/21 12/13/21 Range/Units 12:58 13:18 13:18 WBC 11.3 H (3.8-10.6) k/uL RBC 2.52 L (4.30-5.90) m/uL Hgb 7.4 L (13.0-17.5) gm/dL Hct 23.3 L (39.0-53.0) % Plt Count (150-450) k/uL Neutrophils # 8.2 H (1.3-7.7) k/uL Lymphocytes # (1.0-4.8) k/uL APTT 33.2 H (22.0-30.0) sec ABG pH 7.25 L (7.35-7.45) ABG pCO2 57 H (35-45) mmHg ABG pO2 360 H (83-108) mmHg ABG HCO3 (21-25) mmol/L ABG Total CO2 27 H (19-24) mmol/L ABG O2 Saturation 99.9 H (94-97) % ABG Hematocrit 24 L (34.0-46.0) % ABG Potassium 5.1 H (3.4-4.5) mmol/L ABG Ionized Calcium 4.3 L (4.5-5.3) mg/dL ABG Glucose 153 H (75-99) mg/dL ABG Lactic Acid (0.5-1.6) mmol/L Hemoglobin 7.9 L (13.0-17.5) gm/dL Chloride (98-107) mmol/L Glucose (74-99) mg/dL POC Glucose (mg/dL) (75-99) mg/dL Calcium (8.4-10.2) mg/dL Ionized Calcium Manny (4.5-5.3) mg/dL Total Protein (6.3-8.2) g/dL Arterial Blood Potassium 5.1 H (3.4-4.5) mmol/L Arterial Blood Glucose 153 H (75-99) mg/dL Crossmatch 12/13/21 12/13/21 12/13/21 Range/Units 13:18 13:23 13:50 WBC (3.8-10.6) k/uL RBC (4.30-5.90) m/uL Hgb (13.0-17.5) gm/dL Hct (39.0-53.0) % Plt Count (150-450) k/uL Neutrophils # (1.3-7.7) k/uL Lymphocytes # (1.0-4.8) k/uL APTT (22.0-30.0) sec ABG pH 7.25 L (7.35-7.45) ABG pCO2 56 H (35-45) mmHg ABG pO2 368 H (83-108) mmHg ABG HCO3 (21-25) mmol/L ABG Total CO2 26 H (19-24) mmol/L ABG O2 Saturation 99.0 H (94-97) % ABG Hematocrit (34.0-46.0) % ABG Potassium (3.4-4.5) mmol/L ABG Ionized Calcium (4.5-5.3) mg/dL ABG Glucose (75-99) mg/dL ABG Lactic Acid (0.5-1.6) mmol/L Hemoglobin (13.0-17.5) gm/dL Chloride 108 H (98-107) mmol/L Glucose 139 H (74-99) mg/dL POC Glucose (mg/dL) 161 H (75-99) mg/dL Calcium 7.1 L (8.4-10.2) mg/dL Ionized Calcium Manny 4.4 L (4.5-5.3) mg/dL Total Protein 5.3 L (6.3-8.2) g/dL Arterial Blood Potassium (3.4-4.5) mmol/L Arterial Blood Glucose (75-99) mg/dL Crossmatch 12/13/21 12/13/21 12/13/21 Range/Units 14:09 15:13 16:11 WBC (3.8-10.6) k/uL RBC (4.30-5.90) m/uL Hgb (13.0-17.5) gm/dL Hct (39.0-53.0) % Plt Count (150-450) k/uL Neutrophils # (1.3-7.7) k/uL Lymphocytes # (1.0-4.8) k/uL APTT (22.0-30.0) sec ABG pH 7.12 L* (7.35-7.45) ABG pCO2 68 H (35-45) mmHg ABG pO2 (83-108) mmHg ABG HCO3 (21-25) mmol/L ABG Total CO2 (19-24) mmol/L ABG O2 Saturation (94-97) % ABG Hematocrit (34.0-46.0) % ABG Potassium (3.4-4.5) mmol/L ABG Ionized Calcium (4.5-5.3) mg/dL ABG Glucose (75-99) mg/dL ABG Lactic Acid (0.5-1.6) mmol/L Hemoglobin (13.0-17.5) gm/dL Chloride (98-107) mmol/L Glucose (74-99) mg/dL POC Glucose (mg/dL) 205 H 174 H (75-99) mg/dL Calcium (8.4-10.2) mg/dL Ionized Calcium Manny (4.5-5.3) mg/dL Total Protein (6.3-8.2) g/dL Arterial Blood Potassium (3.4-4.5) mmol/L Arterial Blood Glucose (75-99) mg/dL Crossmatch 12/13/21 12/13/21 12/13/21 Range/Units 16:15 17:06 17:06 WBC (3.8-10.6) k/uL RBC (4.30-5.90) m/uL Hgb (13.0-17.5) gm/dL Hct (39.0-53.0) % Plt Count (150-450) k/uL Neutrophils # (1.3-7.7) k/uL Lymphocytes # (1.0-4.8) k/uL APTT (22.0-30.0) sec ABG pH 7.20 L (7.35-7.45) ABG pCO2 59 H (35-45) mmHg ABG pO2 214 H (83-108) mmHg ABG HCO3 (21-25) mmol/L ABG Total CO2 25 H (19-24) mmol/L ABG O2 Saturation 98.8 H (94-97) % ABG Hematocrit (34.0-46.0) % ABG Potassium (3.4-4.5) mmol/L ABG Ionized Calcium (4.5-5.3) mg/dL ABG Glucose (75-99) mg/dL ABG Lactic Acid (0.5-1.6) mmol/L Hemoglobin (13.0-17.5) gm/dL Chloride (98-107) mmol/L Glucose (74-99) mg/dL POC Glucose (mg/dL) 183 H 163 H (75-99) mg/dL Calcium (8.4-10.2) mg/dL Ionized Calcium Manny (4.5-5.3) mg/dL Total Protein (6.3-8.2) g/dL Arterial Blood Potassium (3.4-4.5) mmol/L Arterial Blood Glucose (75-99) mg/dL Crossmatch 12/13/21 12/13/21 12/13/21 Range/Units 17:22 17:22 18:01 WBC 10.7 H (3.8-10.6) k/uL RBC 2.11 L (4.30-5.90) m/uL Hgb 6.1 L* (13.0-17.5) gm/dL Hct 19.5 L* (39.0-53.0) % Plt Count (150-450) k/uL Neutrophils # 8.6 H (1.3-7.7) k/uL Lymphocytes # (1.0-4.8) k/uL APTT (22.0-30.0) sec ABG pH 7.28 L (7.35-7.45) ABG pCO2 48 H (35-45) mmHg ABG pO2 152 H (83-108) mmHg ABG HCO3 (21-25) mmol/L ABG Total CO2 (19-24) mmol/L ABG O2 Saturation 98.6 H (94-97) % ABG Hematocrit (34.0-46.0) % ABG Potassium (3.4-4.5) mmol/L ABG Ionized Calcium (4.5-5.3) mg/dL ABG Glucose (75-99) mg/dL ABG Lactic Acid (0.5-1.6) mmol/L Hemoglobin (13.0-17.5) gm/dL Chloride (98-107) mmol/L Glucose (74-99) mg/dL POC Glucose (mg/dL) (75-99) mg/dL Calcium (8.4-10.2) mg/dL Ionized Calcium Manny 4.4 L (4.5-5.3) mg/dL Total Protein (6.3-8.2) g/dL Arterial Blood Potassium (3.4-4.5) mmol/L Arterial Blood Glucose (75-99) mg/dL Crossmatch 12/13/21 12/13/21 12/13/21 Range/Units 18:18 18:55 19:00 WBC (3.8-10.6) k/uL RBC 2.00 L (4.30-5.90) m/uL Hgb 5.9 L* (13.0-17.5) gm/dL Hct 18.3 L* (39.0-53.0) % Plt Count (150-450) k/uL Neutrophils # 8.4 H (1.3-7.7) k/uL Lymphocytes # (1.0-4.8) k/uL APTT (22.0-30.0) sec ABG pH (7.35-7.45) ABG pCO2 (35-45) mmHg ABG pO2 (83-108) mmHg ABG HCO3 (21-25) mmol/L ABG Total CO2 (19-24) mmol/L ABG O2 Saturation (94-97) % ABG Hematocrit (34.0-46.0) % ABG Potassium (3.4-4.5) mmol/L ABG Ionized Calcium (4.5-5.3) mg/dL ABG Glucose (75-99) mg/dL ABG Lactic Acid (0.5-1.6) mmol/L Hemoglobin (13.0-17.5) gm/dL Chloride (98-107) mmol/L Glucose (74-99) mg/dL POC Glucose (mg/dL) 132 H 130 H (75-99) mg/dL Calcium (8.4-10.2) mg/dL Ionized Calcium Manny (4.5-5.3) mg/dL Total Protein (6.3-8.2) g/dL Arterial Blood Potassium (3.4-4.5) mmol/L Arterial Blood Glucose (75-99) mg/dL Crossmatch 12/13/21 12/13/21 12/13/21 Range/Units 20:10 20:58 21:04 WBC (3.8-10.6) k/uL RBC (4.30-5.90) m/uL Hgb (13.0-17.5) gm/dL Hct (39.0-53.0) % Plt Count (150-450) k/uL Neutrophils # (1.3-7.7) k/uL Lymphocytes # (1.0-4.8) k/uL APTT (22.0-30.0) sec ABG pH (7.35-7.45) ABG pCO2 (35-45) mmHg ABG pO2 (83-108) mmHg ABG HCO3 (21-25) mmol/L ABG Total CO2 (19-24) mmol/L ABG O2 Saturation (94-97) % ABG Hematocrit (34.0-46.0) % ABG Potassium (3.4-4.5) mmol/L ABG Ionized Calcium (4.5-5.3) mg/dL ABG Glucose (75-99) mg/dL ABG Lactic Acid (0.5-1.6) mmol/L Hemoglobin (13.0-17.5) gm/dL Chloride (98-107) mmol/L Glucose (74-99) mg/dL POC Glucose (mg/dL) 129 H 137 H (75-99) mg/dL Calcium (8.4-10.2) mg/dL Ionized Calcium Manny (4.5-5.3) mg/dL Total Protein (6.3-8.2) g/dL Arterial Blood Potassium (3.4-4.5) mmol/L Arterial Blood Glucose (75-99) mg/dL Crossmatch See Detail 12/13/21 12/13/21 12/14/21 Range/Units 21:53 23:04 00:05 WBC (3.8-10.6) k/uL RBC (4.30-5.90) m/uL Hgb (13.0-17.5) gm/dL Hct (39.0-53.0) % Plt Count (150-450) k/uL Neutrophils # (1.3-7.7) k/uL Lymphocytes # (1.0-4.8) k/uL APTT (22.0-30.0) sec ABG pH (7.35-7.45) ABG pCO2 (35-45) mmHg ABG pO2 (83-108) mmHg ABG HCO3 (21-25) mmol/L ABG Total CO2 (19-24) mmol/L ABG O2 Saturation (94-97) % ABG Hematocrit (34.0-46.0) % ABG Potassium (3.4-4.5) mmol/L ABG Ionized Calcium (4.5-5.3) mg/dL ABG Glucose (75-99) mg/dL ABG Lactic Acid (0.5-1.6) mmol/L Hemoglobin (13.0-17.5) gm/dL Chloride (98-107) mmol/L Glucose (74-99) mg/dL POC Glucose (mg/dL) 130 H 125 H 117 H (75-99) mg/dL Calcium (8.4-10.2) mg/dL Ionized Calcium Manny (4.5-5.3) mg/dL Total Protein (6.3-8.2) g/dL Arterial Blood Potassium (3.4-4.5) mmol/L Arterial Blood Glucose (75-99) mg/dL Crossmatch 12/14/21 12/14/21 12/14/21 Range/Units 00:59 02:00 02:02 WBC (3.8-10.6) k/uL RBC 2.28 L (4.30-5.90) m/uL Hgb 6.7 L* (13.0-17.5) gm/dL Hct 20.5 L (39.0-53.0) % Plt Count 126 L (150-450) k/uL Neutrophils # (1.3-7.7) k/uL Lymphocytes # (1.0-4.8) k/uL APTT (22.0-30.0) sec ABG pH (7.35-7.45) ABG pCO2 (35-45) mmHg ABG pO2 (83-108) mmHg ABG HCO3 (21-25) mmol/L ABG Total CO2 (19-24) mmol/L ABG O2 Saturation (94-97) % ABG Hematocrit (34.0-46.0) % ABG Potassium (3.4-4.5) mmol/L ABG Ionized Calcium (4.5-5.3) mg/dL ABG Glucose (75-99) mg/dL ABG Lactic Acid (0.5-1.6) mmol/L Hemoglobin (13.0-17.5) gm/dL Chloride (98-107) mmol/L Glucose (74-99) mg/dL POC Glucose (mg/dL) 108 H 131 H (75-99) mg/dL Calcium (8.4-10.2) mg/dL Ionized Calcium Manny (4.5-5.3) mg/dL Total Protein (6.3-8.2) g/dL Arterial Blood Potassium (3.4-4.5) mmol/L Arterial Blood Glucose (75-99) mg/dL Crossmatch 12/14/21 12/14/21 12/14/21 Range/Units 03:12 04:02 04:23 WBC (3.8-10.6) k/uL RBC (4.30-5.90) m/uL Hgb (13.0-17.5) gm/dL Hct (39.0-53.0) % Plt Count (150-450) k/uL Neutrophils # (1.3-7.7) k/uL Lymphocytes # (1.0-4.8) k/uL APTT (22.0-30.0) sec ABG pH (7.35-7.45) ABG pCO2 (35-45) mmHg ABG pO2 (83-108) mmHg ABG HCO3 (21-25) mmol/L ABG Total CO2 (19-24) mmol/L ABG O2 Saturation (94-97) % ABG Hematocrit (34.0-46.0) % ABG Potassium (3.4-4.5) mmol/L ABG Ionized Calcium (4.5-5.3) mg/dL ABG Glucose (75-99) mg/dL ABG Lactic Acid (0.5-1.6) mmol/L Hemoglobin (13.0-17.5) gm/dL Chloride 108 H (98-107) mmol/L Glucose 105 H (74-99) mg/dL POC Glucose (mg/dL) 126 H 117 H (75-99) mg/dL Calcium 7.0 L (8.4-10.2) mg/dL Ionized Calcium Manny 4.4 L (4.5-5.3) mg/dL Total Protein 5.2 L (6.3-8.2) g/dL Arterial Blood Potassium (3.4-4.5) mmol/L Arterial Blood Glucose (75-99) mg/dL Crossmatch 12/14/21 12/14/21 12/14/21 Range/Units 05:01 05:54 06:49 WBC (3.8-10.6) k/uL RBC (4.30-5.90) m/uL Hgb (13.0-17.5) gm/dL Hct (39.0-53.0) % Plt Count (150-450) k/uL Neutrophils # (1.3-7.7) k/uL Lymphocytes # (1.0-4.8) k/uL APTT (22.0-30.0) sec ABG pH (7.35-7.45) ABG pCO2 (35-45) mmHg ABG pO2 (83-108) mmHg ABG HCO3 (21-25) mmol/L ABG Total CO2 (19-24) mmol/L ABG O2 Saturation (94-97) % ABG Hematocrit (34.0-46.0) % ABG Potassium (3.4-4.5) mmol/L ABG Ionized Calcium (4.5-5.3) mg/dL ABG Glucose (75-99) mg/dL ABG Lactic Acid (0.5-1.6) mmol/L Hemoglobin (13.0-17.5) gm/dL Chloride (98-107) mmol/L Glucose (74-99) mg/dL POC Glucose (mg/dL) 133 H 126 H 120 H (75-99) mg/dL Calcium (8.4-10.2) mg/dL Ionized Calcium Manny (4.5-5.3) mg/dL Total Protein (6.3-8.2) g/dL Arterial Blood Potassium (3.4-4.5) mmol/L Arterial Blood Glucose (75-99) mg/dL Crossmatch 12/14/21 12/14/21 12/14/21 Range/Units 06:50 08:08 09:05 WBC (3.8-10.6) k/uL RBC 2.55 L (4.30-5.90) m/uL Hgb 7.4 L (13.0-17.5) gm/dL Hct 23.0 L (39.0-53.0) % Plt Count 120 L (150-450) k/uL Neutrophils # (1.3-7.7) k/uL Lymphocytes # 0.9 L (1.0-4.8) k/uL APTT (22.0-30.0) sec ABG pH (7.35-7.45) ABG pCO2 (35-45) mmHg ABG pO2 (83-108) mmHg ABG HCO3 (21-25) mmol/L ABG Total CO2 (19-24) mmol/L ABG O2 Saturation (94-97) % ABG Hematocrit (34.0-46.0) % ABG Potassium (3.4-4.5) mmol/L ABG Ionized Calcium (4.5-5.3) mg/dL ABG Glucose (75-99) mg/dL ABG Lactic Acid (0.5-1.6) mmol/L Hemoglobin (13.0-17.5) gm/dL Chloride (98-107) mmol/L Glucose (74-99) mg/dL POC Glucose (mg/dL) 205 H 177 H (75-99) mg/dL Calcium (8.4-10.2) mg/dL Ionized Calcium Manny (4.5-5.3) mg/dL Total Protein (6.3-8.2) g/dL Arterial Blood Potassium (3.4-4.5) mmol/L Arterial Blood Glucose (75-99) mg/dL Crossmatch 12/14/21 12/14/21 Range/Units 11:17 12:13 WBC (3.8-10.6) k/uL RBC (4.30-5.90) m/uL Hgb (13.0-17.5) gm/dL Hct (39.0-53.0) % Plt Count (150-450) k/uL Neutrophils # (1.3-7.7) k/uL Lymphocytes # (1.0-4.8) k/uL APTT (22.0-30.0) sec ABG pH (7.35-7.45) ABG pCO2 (35-45) mmHg ABG pO2 (83-108) mmHg ABG HCO3 (21-25) mmol/L ABG Total CO2 (19-24) mmol/L ABG O2 Saturation (94-97) % ABG Hematocrit (34.0-46.0) % ABG Potassium (3.4-4.5) mmol/L ABG Ionized Calcium (4.5-5.3) mg/dL ABG Glucose (75-99) mg/dL ABG Lactic Acid (0.5-1.6) mmol/L Hemoglobin (13.0-17.5) gm/dL Chloride (98-107) mmol/L Glucose (74-99) mg/dL POC Glucose (mg/dL) 105 H 124 H (75-99) mg/dL Calcium (8.4-10.2) mg/dL Ionized Calcium Manny (4.5-5.3) mg/dL Total Protein (6.3-8.2) g/dL Arterial Blood Potassium (3.4-4.5) mmol/L Arterial Blood Glucose (75-99) mg/dL Crossmatch Assessment and Plan Assessment: Type 2 diabetes - Continue with insulin drip. - Monitor blood sugars - Most recent A1c 6.6 Obstructive sleep apnea - CPAP at bedtime Anemia -Monitor hemoglobin closely, recommend transfusion for hemoglobin less than 8. Hypertension -Currently on Levophed drip. Hold all antihypertensives Status post aortic valve replacement for aortic stenosis - Per CT surgery CAD status post LAD stent -Continue aspirin and Plavix and statin. Cardiology is on board.
[2021-12-14] MEDS ORDERED: CALCIUM GLUCONATE IN NACL 1 GM in SALINE 1 100ML.BAG IVPB ONE (13:51)
[2021-12-14 14:14] LABS: Glucose,Whole Blood 313 mg/dL (75-99)
[2021-12-14 15:13] LABS: Glucose,Whole Blood 228 mg/dL (75-99)
[2021-12-14 17:18] LABS: Glucose,Whole Blood 131 mg/dL (75-99)
[2021-12-14 18:12] LABS: Glucose,Whole Blood 133 mg/dL (75-99)
[2021-12-14 18:57] LABS: Glucose,Whole Blood 176 mg/dL (75-99)
[2021-12-14 20:07] LABS: Glucose,Whole Blood 218 mg/dL (75-99)
[2021-12-14] MEDS: SENNOSIDES-DOCUSATE SODIUM 1 EACH TAB PO SCH (21:17)
[2021-12-14 21:22] LABS: Glucose,Whole Blood 205 mg/dL (75-99)
[2021-12-14] MEDS: SODIUM CHLORIDE 0.9% 1,000 ML IV SCH (22:00)
[2021-12-14 22:42] LABS: Glucose,Whole Blood 141 mg/dL (75-99)
[2021-12-15] LABS: Glucose,Whole Blood 132 mg/dL (75-99)
[2021-12-15] MEDS: HEPARIN SODIUM,PORCINE/PF 5,000 UNIT/0.5 ML SYRINGE SQ SCH ×4 (00:28→23:19)
[2021-12-15] MEDS: HYDROcodone/APAP 10-325MG 1 EACH TAB PO PRN ×2 (00:54→04:45)
[2021-12-15 01:00] LABS: Glucose,Whole Blood 129 mg/dL (75-99)
[2021-12-15 02:00] LABS: Glucose,Whole Blood 155 mg/dL (75-99)
[2021-12-15 03:04] LABS: Glucose,Whole Blood 139 mg/dL (75-99)
[2021-12-15 04:03] LABS: Glucose,Whole Blood 137 mg/dL (75-99)
[2021-12-15] MEDS: INSULIN REGULAR 100 UNIT in SODIUM CHLORIDE 0.9% 100 ML IV SCH (04:05)
[2021-12-15 05:09] LABS: Glucose,Whole Blood 137 mg/dL (75-99)
[2021-12-15 06:07] LABS: Glucose,Whole Blood 155 mg/dL (75-99)
[2021-12-15 06:19] LABS: Basophils % (A) 0 %; Eosinophils % (A) 0 %; HCT 28.8 % (39.0-53.0); Hypochromasia Slight; Lymphocytes # (A) 0.9 k/uL (1.0-4.8); Lymphocytes % (A) 8 %; MCH 29.7 pg (25.0-35.0); MCHC 31.7 g/dL (31.0-37.0); MCV 93.8 fL (80.0-100.0); Mean Platelet Volume 8.5; Monocytes # (A) 0.8 k/uL (0-1.0); Monocytes % (A) 7 %; Neutrophils % (A) 82 %; Platelet Count 120 k/uL (150-450); RBC 3.06 m/uL (4.30-5.90); WBC 11.1 k/uL (3.8-10.6)
[2021-12-15 06:30] LABS: Ionized Calcium 4.5 mg/dL (4.5-5.3)
[2021-12-15 06:31] LABS: HGB 9.1 gm/dL (13.0-17.5)
[2021-12-15 06:37] LABS: Albumin 4.1 g/dL (3.5-5.0); Calcium 8.4 mg/dL (8.4-10.2); Total Protein 6.2 g/dL (6.3-8.2)
[2021-12-15] MEDS ORDERED: ACETAMINOPHEN TAB 325 MG TAB PO PRN (06:57)
[2021-12-15 07:01] LABS: Glucose,Whole Blood 138 mg/dL (75-99)
[2021-12-15] MEDS ORDERED: FUROSEMIDE 10 MG/ML 2 ML VIAL IV ONE (07:40)
[2021-12-15] MEDS: IPRATROPIUM-ALBUTEROL 3 ML NEB INHALATION SCH ×4 (07:52→20:12)
[2021-12-15] MEDS: KETOROLAC 15 MG/ML 1 ML VIAL IVP SCH ×4 (07:58→23:19)
[2021-12-15] MEDS: PANTOPRAZOLE 40 MG TABLET PO SCH (08:10)
--- NOTE | 2021-12-15 08:10 | P.PN ---
Subjective Progress Note Date: 12/15/21 Principal diagnosis: Severe aortic valve stenosis, CAD status post PCI stenting for JEWEL HOLE GAUGER of the LAD at [facility] 2020, hypertension, hyperlipidemia, obesity, obstructive sleep apnea, insulin-dependent diabetes, previous tobacco dependence, mild COPD. Vaccinated against Covid. POD #2 aortic valve replacement using a 23 mm Inspiris pericardial bioprosthesis, exclusion of left atrial appendage using a 35 mm AtriClip, sternal closure with pineal cable and Tritium plating system, intraoperative transesophageal echocardiogram and epi-aortic scanning Postoperative acute blood loss anemia and thrombocytopenia, expected given the hemodilution and cardiopulmonary bypass pump The patient was seen and examined this morning sitting up in a recliner in the intensive care unit in no acute distress. Remains in sinus rhythm, hemodynamically stable off pressors for 24 hours. Received blood yesterday, hemoglobin 9.1 this morning. Currently on 4 L nasal cannula with oxygen satur ation in the mid 90s, attempting incentive spirometry but with poor effort, only achieving a little over 500 mL. Right internal jugular Cordis, mediastinal chest tubes remain. Patient asking for more pain medication despite Hilbert increase yesterday. He did ambulate in the hallway yesterday with assistance. Objective - Vital Signs Vital signs: Vital Signs Temp 98.7 F 12/15/21 04:00 Pulse 80 12/15/21 07:55 Resp 18 12/15/21 07:00 BP 138/68 12/15/21 07:00 Pulse Ox 96 12/15/21 07:00 FiO2 40 12/15/21 03:29 Intake & Output 12/14/21 12/15/21 12/15/21 18:59 06:59 18:59 Intake Total 1634.395 688.024 56.712 Output Total 1155 690 Balance 479.395 -1.976 56.712 Weight 115.7 kg 118.3 kg Intake: IV 733 636 53 Calcium Gluconate in NaCl 100 1 gm In Saline 1 100ml. bag @ 100 mls/hr IVPB ONCE ONE Rx#:[id number] Cardiac Output 0.9 Sodium 20 Chloride Pressure Bag 0.9 Sodium 63 36 3 Chloride Sodium Chloride 0.9% 1, 550 600 50 000 ml @ 20 mls/hr IV . Q24H [facility] Rx#:[id number] Intake, IV Titration 291.395 52.024 3.712 Amount Insulin Regular 100 unit 50.719 52.024 3.712 In Sodium Chloride 0.9% 100 ml @ Per Protocol IV .Q0M [facility] Rx#:[id number] Norepinephrine 4 mg In 240.676 Sodium Chloride 0.9% 250 ml @ 0.02 MCG/KG/MIN 8. 504 mls/hr IV .Q24H [facility] Rx#:[id number] Oral 610 Blood Product 0 Rc As-1 Unit 0 [id number] Output: Chest Tube Drainage 60 60 Bilateral Mediastinal 60 60 Urine 1095 630 Other: Voiding Method Indwelling Catheter Indwelling Catheter # Voids 0 ABP, PAP, CO, CI - Last Documented Arterial Blood Pressure 119/42 Pulmonary Artery Pressure 27/10 Cardiac Output 8.1 Cardiac Index 3.6 - Exam CONSTITUTIONAL: Appears comfortable, cooperative, no acute distress RESPIRATORY: Lungs sounds diminished bilaterally. Respirations even, nonlabored. Currently on 4 L nasal cannula with oxygen saturation 96%. Able to achieve 500 mL on incentive spirometry. Strong cough. CARDIOVASCULAR: S1, S2 present. Regular rate and rhythm, sinus rhythm on telemetry. Sternum stable. Palpable peripheral pulses bilaterally. No edema present. No calf pain or tenderness noted. Heart hugger in place with patient demonstrating appropriate use. Antiembolism stockings, SCDs present. GASTROINTESTINAL: Abdomen soft, nontender, nondistended, obese. Hypoactive bowel sounds present 4 quadrants. Tolerating diet. Negative flatus, positive belching GENITOURINARY: Luna discontinued this morning, due to void. Output overnight 40-60 mL per hour, 1725 mL in the last 24 hours INTEGUMENTARY: Skin is warm and dry with evidence of good perfusion. Anterior chest incision well approximated and covered with dry intact dressing NEUROLOGIC: Cranial nerves II through XII intact MUSKULOSKELETAL: Able to move all extremities, strength equal bilaterally PSYCHIATRIC: Alert and oriented to person place and time, appropriate affect, intact judgment and insight INVASIVE LINES AND TUBES: Mediastinal chest tubes present and connected to wall suction, no air leaks present, 50 mL serosanguineous drainage overnight, 150 mL in the last 24 hours. A/V epicardial pacemaker wires present, connected to generator, DDD mode with backup rate 50 bpm. Right internal jugular Cordis present. - Allied health notes Allied health notes reviewed: nursing - Labs CBC & Chem 7: 12/15/21 05:43 05/28/22 05:43 Labs: Abnormal Lab Results - Last 24 Hours (Table) 12/07/21 12/14/21 12/14/21 Range/Units 11:03 08:08 09:05 WBC (3.8-10.6) k/uL RBC (4.30-5.90) m/uL Hgb (13.0-17.5) gm/dL Hct (39.0-53.0) % Plt Count (150-450) k/uL Neutrophils # (1.3-7.7) k/uL Lymphocytes # (1.0-4.8) k/uL Chloride (98-107) mmol/L Glucose (74-99) mg/dL POC Glucose (mg/dL) 205 H 177 H (75-99) mg/dL Total Protein (6.3-8.2) g/dL Crossmatch See Detail 12/14/21 12/14/21 12/14/21 Range/Units 11:17 12:13 14:11 WBC (3.8-10.6) k/uL RBC (4.30-5.90) m/uL Hgb (13.0-17.5) gm/dL Hct (39.0-53.0) % Plt Count (150-450) k/uL Neutrophils # (1.3-7.7) k/uL Lymphocytes # (1.0-4.8) k/uL Chloride (98-107) mmol/L Glucose (74-99) mg/dL POC Glucose (mg/dL) 105 H 124 H 313 H (75-99) mg/dL Total Protein (6.3-8.2) g/dL Crossmatch 12/14/21 12/14/21 12/14/21 Range/Units 15:11 17:16 18:11 WBC (3.8-10.6) k/uL RBC (4.30-5.90) m/uL Hgb (13.0-17.5) gm/dL Hct (39.0-53.0) % Plt Count (150-450) k/uL Neutrophils # (1.3-7.7) k/uL Lymphocytes # (1.0-4.8) k/uL Chloride (98-107) mmol/L Glucose (74-99) mg/dL POC Glucose (mg/dL) 228 H 131 H 133 H (75-99) mg/dL Total Protein (6.3-8.2) g/dL Crossmatch 12/14/21 12/14/21 12/14/21 Range/Units 18:55 20:05 21:21 WBC (3.8-10.6) k/uL RBC (4.30-5.90) m/uL Hgb (13.0-17.5) gm/dL Hct (39.0-53.0) % Plt Count (150-450) k/uL Neutrophils # (1.3-7.7) k/uL Lymphocytes # (1.0-4.8) k/uL Chloride (98-107) mmol/L Glucose (74-99) mg/dL POC Glucose (mg/dL) 176 H 218 H 205 H (75-99) mg/dL Total Protein (6.3-8.2) g/dL Crossmatch 12/14/21 12/14/21 12/15/21 Range/Units 22:40 23:58 00:58 WBC (3.8-10.6) k/uL RBC (4.30-5.90) m/uL Hgb (13.0-17.5) gm/dL Hct (39.0-53.0) % Plt Count (150-450) k/uL Neutrophils # (1.3-7.7) k/uL Lymphocytes # (1.0-4.8) k/uL Chloride (98-107) mmol/L Glucose (74-99) mg/dL POC Glucose (mg/dL) 141 H 132 H 129 H (75-99) mg/dL Total Protein (6.3-8.2) g/dL Crossmatch 12/15/21 12/15/21 12/15/21 Range/Units 01:59 03:02 04:02 WBC (3.8-10.6) k/uL RBC (4.30-5.90) m/uL Hgb (13.0-17.5) gm/dL Hct (39.0-53.0) % Plt Count (150-450) k/uL Neutrophils # (1.3-7.7) k/uL Lymphocytes # (1.0-4.8) k/uL Chloride (98-107) mmol/L Glucose (74-99) mg/dL POC Glucose (mg/dL) 155 H 139 H 137 H (75-99) mg/dL Total Protein (6.3-8.2) g/dL Crossmatch 12/15/21 12/15/21 12/15/21 Range/Units 05:07 05:43 05:43 WBC 11.1 H (3.8-10.6) k/uL RBC 3.06 L (4.30-5.90) m/uL Hgb 9.1 L D (13.0-17.5) gm/dL Hct 28.8 L (39.0-53.0) % Plt Count 120 L (150-450) k/uL Neutrophils # 9.0 H (1.3-7.7) k/uL Lymphocytes # 0.9 L (1.0-4.8) k/uL Chloride 108 H (98-107) mmol/L Glucose 117 H (74-99) mg/dL POC Glucose (mg/dL) 137 H (75-99) mg/dL Total Protein 6.2 L (6.3-8.2) g/dL Crossmatch 12/15/21 12/15/21 Range/Units 06:05 06:59 WBC (3.8-10.6) k/uL RBC (4.30-5.90) m/uL Hgb (13.0-17.5) gm/dL Hct (39.0-53.0) % Plt Count (150-450) k/uL Neutrophils # (1.3-7.7) k/uL Lymphocytes # (1.0-4.8) k/uL Chloride (98-107) mmol/L Glucose (74-99) mg/dL POC Glucose (mg/dL) 155 H 138 H (75-99) mg/dL Total Protein (6.3-8.2) g/dL Crossmatch - Imaging and Cardiology Chest x-ray: image reviewed Assessment and Plan Assessment: 1. Severe aortic valve stenosis, status post aortic valve replacement 2. CAD status post PCI stenting for JEWEL HOLE GAUGER of the LAD at [facility] 2020 3. History hypertension, currently hypotensive on low-dose levo 4. Hyperlipidemia, treated, cholesterol 154, LDL 62, triglycerides 292 5. Obesity 6. Obstructive sleep apnea with home CPAP use 7. Insulin-dependent diabetes, preoperative hemoglobin A1c 6.6% 8. Previous tobacco dependence 9. Mild COPD, preoperative FEV1 61% of predicted 10. Vaccinated against Covid. 11. Postoperative acute blood loss anemia and thrombocytopenia, expected Plan: 1. Continue aspirin, statin, Plavix, beta brooke. Will increase beta brooke therapy as tolerated, increased to 25 mg twice daily today 2. Wean O2 as tolerated. Encourage incentive spirometry use 10 times every hour while awake. Bronchodilators per pulmonology 3. Patient's family to bring CPAP from home to be used at bedtime 4. Increase activity, ambulate as tolerated. PT/OT/cardiac rehab following 5. Will monitor daily labs and x-rays. Electrolyte replacement per protocol. Will give IV Lasix today. No further blood transfusion 6. GI/DVT prophylaxis 7. Pain control with current medication regimen. Will add Toradol for better pain control 8. Insulin management per primary care service 9. Will discontinue mediastinal chest tubes today 10. Discontinue cordis 11. Ground epicardial pacemaker wires 12. May bladder scan and straight cath for greater than 300 mL residual 13. Strict accurate intake and output. Daily weights 14. Will place transfer orders for 3 S. cardiac stepdown unit. May transfer when bed available 15. More recommendations to follow
[2021-12-15 08:13] LABS: Glucose,Whole Blood 178 mg/dL (75-99)
[2021-12-15] MEDS: CLOPIDOGREL 75 MG TAB PO SCH (08:24)
[2021-12-15] MEDS: MULTIVITAMINS, THERA 1 EACH TAB PO SCH (08:24)
[2021-12-15] MEDS: ASPIRIN 325 MG TAB PO SCH (08:24)
[2021-12-15] MEDS: ATORVASTATIN 40 MG TAB PO SCH (08:24)
[2021-12-15] MEDS: METOPROLOL TARTRATE 25 MG TAB PO SCH ×2 (08:25→21:00)
--- NOTE | 2021-12-15 08:35 | P.PN ---
Subjective HISTORY OF PRESENTING ILLNESS This is a 66-year-old gentleman with history of hypertension, diabetes, obesity and hyperlipidemia with history of ischemic heart disease and stent placement to the LAD done at [facility]. Patient has been having exertional dyspnea and was noted to have moderate to severe aortic stenosis. Recent evaluation showed a mean gradient of 40 mmHg across the aortic valve and also moderate mitral regurgitation. Cardiac catheterization showed mild in- stent stenosis of the LAD with total occluded distal LAD. Patient underwent aortic valve replacement. Patient is currently extubated. Patient was anemic requiring 2 units of blood transfusion. Waiting for the follow-up CBC. Complaints of chest discomfort and some shortness of breath. Doesn't appear to be in acute distress. His cardiac output was in the range of 7.2 L. No significant arrhythmias. Overall patient seemed to be progressing well. Patient apparently has been having some coughing spells associated with near- syncope. However this is not associated with bradycardia and patient has and uses pacemaker. Continue monitor his heart rhythm. Rule out any bradyarrhythmias. Rest of the management to be continued continued including incentive spirometry 12/15 Patient seen and examined. Patient asking for some pain medications secondary to the sternotomy however pain medications are somewhat relieving it. Denies any nausea or vomiting. Heart rates somewhat elevated when he gets up and walks around however noted to be sinus rhythm. Beta brooke was increased. PHYSICAL EXAMINATION Vital signs reviewed. CONSTITUTIONAL: No apparent distress. HEENT: Head is normocephalic. Pupils are equal, round. Sclerae anicteric. Mucous membranes of the mouth are moist. No JVD. No carotid bruit. CHEST EXAMINATION: Lungs are clear to auscultation. No chest wall tenderness is noted on palpation or with deep breathing. HEART EXAMINATION: Regular rate and rhythm. S1, S2 heard. No murmurs, gallops or rub. ABDOMEN: Soft, nontender. Positive bowel sounds. EXTREMITIES: 2+ peripheral pulses, no lower extremity edema and no calf tende rness. NEUROLOGIC EXAMINATION: Patient is awake, alert and oriented x3. ASSESSMENT 1. Severe aortic stenosis status post surgical aortic valve replacement 2. History of CAD status post CROSSBAR SWITCH ADJUSTER PCI LAD 2020 3. Hypertension 4. Blood loss anemia and thrombocytopenia 5. Obesity 6. Diabetes mellitus type 2 7. Sinus tachycardia Plan: Continue with aspirin, Plavix, increased dose of metoprolol. Patient appears to be recovering from his aortic valve replacement. Monitor hemoglobin. Continue supportive care. Objective - Vital Signs Vital signs: Vital Signs Temp 98.3 F 12/15/21 08:00 Pulse 80 12/15/21 08:07 Resp 20 12/15/21 08:00 BP 124/89 12/15/21 08:00 Pulse Ox 100 12/15/21 08:00 FiO2 40 12/15/21 03:29 Intake & Output 12/14/21 12/15/21 12/15/21 18:59 06:59 18:59 Intake Total 1634.395 688.024 84.560 Output Total 1155 690 Balance 479.395 -1.976 84.560 Weight 115.7 kg 118.3 kg Intake: IV 733 636 76 Calcium Gluconate in NaCl 100 1 gm In Saline 1 100ml. bag @ 100 mls/hr IVPB ONCE ONE Rx#:[id number] Cardiac Output 0.9 Sodium 20 Chloride Pressure Bag 0.9 Sodium 63 36 6 Chloride Sodium Chloride 0.9% 1, 550 600 70 000 ml @ 20 mls/hr IV . Q24H [facility] Rx#:[id number] Intake, IV Titration 291.395 52.024 8.560 Amount Insulin Regular 100 unit 50.719 52.024 8.560 In Sodium Chloride 0.9% 100 ml @ Per Protocol IV .Q0M [facility] Rx#:[id number] Norepinephrine 4 mg In 240.676 Sodium Chloride 0.9% 250 ml @ 0.02 MCG/KG/MIN 8. 504 mls/hr IV .Q24H [facility] Rx#:[id number] Oral 610 Blood Product 0 Rc As-1 Unit 0 [id number] Output: Chest Tube Drainage 60 60 Bilateral Mediastinal 60 60 Urine 1095 630 Other: Voiding Method Indwelling Catheter Indwelling Catheter # Voids 0 ABP, PAP, CO, CI - Last Documented Arterial Blood Pressure 119/42 Pulmonary Artery Pressure 27/10 Cardiac Output 8.1 Cardiac Index 3.6 - Labs CBC & Chem 7: 12/15/21 05:43 12/15/21 05:43 Labs: Abnormal Lab Results - Last 24 Hours (Table) 12/07/21 12/14/21 12/14/21 Range/Units 11:03 09:05 11:17 WBC (3.8-10.6) k/uL RBC (4.30-5.90) m/uL Hgb (13.0-17.5) gm/dL Hct (39.0-53.0) % Plt Count (150-450) k/uL Neutrophils # (1.3-7.7) k/uL Lymphocytes # (1.0-4.8) k/uL Chloride (98-107) mmol/L Glucose (74-99) mg/dL POC Glucose (mg/dL) 177 H 105 H (75-99) mg/dL Total Protein (6.3-8.2) g/dL Crossmatch See Detail 12/14/21 12/14/21 12/14/21 Range/Units 12:13 14:11 15:11 WBC (3.8-10.6) k/uL RBC (4.30-5.90) m/uL Hgb (13.0-17.5) gm/dL Hct (39.0-53.0) % Plt Count (150-450) k/uL Neutrophils # (1.3-7.7) k/uL Lymphocytes # (1.0-4.8) k/uL Chloride (98-107) mmol/L Glucose (74-99) mg/dL POC Glucose (mg/dL) 124 H 313 H 228 H (75-99) mg/dL Total Protein (6.3-8.2) g/dL Crossmatch 12/14/21 12/14/21 12/14/21 Range/Units 17:16 18:11 18:55 WBC (3.8-10.6) k/uL RBC (4.30-5.90) m/uL Hgb (13.0-17.5) gm/dL Hct (39.0-53.0) % Plt Count (150-450) k/uL Neutrophils # (1.3-7.7) k/uL Lymphocytes # (1.0-4.8) k/uL Chloride (98-107) mmol/L Glucose (74-99) mg/dL POC Glucose (mg/dL) 131 H 133 H 176 H (75-99) mg/dL Total Protein (6.3-8.2) g/dL Crossmatch 12/14/21 12/14/21 12/14/21 Range/Units 20:05 21:21 22:40 WBC (3.8-10.6) k/uL RBC (4.30-5.90) m/uL Hgb (13.0-17.5) gm/dL Hct (39.0-53.0) % Plt Count (150-450) k/uL Neutrophils # (1.3-7.7) k/uL Lymphocytes # (1.0-4.8) k/uL Chloride (98-107) mmol/L Glucose (74-99) mg/dL POC Glucose (mg/dL) 218 H 205 H 141 H (75-99) mg/dL Total Protein (6.3-8.2) g/dL Crossmatch 12/14/21 12/15/21 12/15/21 Range/Units 23:58 00:58 01:59 WBC (3.8-10.6) k/uL RBC (4.30-5.90) m/uL Hgb (13.0-17.5) gm/dL Hct (39.0-53.0) % Plt Count (150-450) k/uL Neutrophils # (1.3-7.7) k/uL Lymphocytes # (1.0-4.8) k/uL Chloride (98-107) mmol/L Glucose (74-99) mg/dL POC Glucose (mg/dL) 132 H 129 H 155 H (75-99) mg/dL Total Protein (6.3-8.2) g/dL Crossmatch 12/15/21 12/15/21 12/15/21 Range/Units 03:02 04:02 05:07 WBC (3.8-10.6) k/uL RBC (4.30-5.90) m/uL Hgb (13.0-17.5) gm/dL Hct (39.0-53.0) % Plt Count (150-450) k/uL Neutrophils # (1.3-7.7) k/uL Lymphocytes # (1.0-4.8) k/uL Chloride (98-107) mmol/L Glucose (74-99) mg/dL POC Glucose (mg/dL) 139 H 137 H 137 H (75-99) mg/dL Total Protein (6.3-8.2) g/dL Crossmatch 12/15/21 12/15/21 12/15/21 Range/Units 05:43 05:43 06:05 WBC 11.1 H (3.8-10.6) k/uL RBC 3.06 L (4.30-5.90) m/uL Hgb 9.1 L D (13.0-17.5) gm/dL Hct 28.8 L (39.0-53.0) % Plt Count 120 L (150-450) k/uL Neutrophils # 9.0 H (1.3-7.7) k/uL Lymphocytes # 0.9 L (1.0-4.8) k/uL Chloride 108 H (98-107) mmol/L Glucose 117 H (74-99) mg/dL POC Glucose (mg/dL) 155 H (75-99) mg/dL Total Protein 6.2 L (6.3-8.2) g/dL Crossmatch 12/15/21 12/15/21 Range/Units 06:59 08:13 WBC (3.8-10.6) k/uL RBC (4.30-5.90) m/uL Hgb (13.0-17.5) gm/dL Hct (39.0-53.0) % Plt Count (150-450) k/uL Neutrophils # (1.3-7.7) k/uL Lymphocytes # (1.0-4.8) k/uL Chloride (98-107) mmol/L Glucose (74-99) mg/dL POC Glucose (mg/dL) 138 H 178 H (75-99) mg/dL Total Protein (6.3-8.2) g/dL Crossmatch
--- NOTE | 2021-12-15 08:38 | XR ---
EXAMINATION TYPE: XR chest 1V portable DATE OF EXAM: 12/15/2021 COMPARISON: 12/14/2021 INDICATION: Postop cardiac surgery TECHNIQUE: Single frontal view of the chest is obtained. FINDINGS: The heart size is mildly prominent. The pulmonary vasculature is normal. Bibasilar infiltrates are present. These are developing over the interval. Small pleural effusions ar e not excluded. No pneumothorax is evident post Garwood-Miles catheter removal. Sheath remains present on the right. IMPRESSION: 1. Bibasilar infiltrates and/or small bilateral pleural effusions. This is developing from comparison . 2. Moderate cardiomegaly
[2021-12-15 09:05] LABS: Glucose,Whole Blood 185 mg/dL (75-99)
--- NOTE | 2021-12-15 09:13 | P.PN ---
Subjective Progress Note Date: 12/15/21 This is a 58-year-old white male patient with past medical history of morbid ob esity, diabetes mellitus, hypertension, hyperlipidemia, obstructive sleep apnea on CPAP, tobacco abuse, coronary artery disease status post LAD stenting at the [facility]. Patient had been having history of chest pain and dyspnea on exertion for the past 2-3 years. He was found to have a murmur and moderate to severe aortic valve stenosis. In addition patient was complaining of fatigue . His preop workup included a transesophageal echocardiogram and cardiac catheterization that showed preserved LV function, an estimated valve area of the aortic valve of 1 cm, and a mean gradient of 40 mmHg with moderate mitral valve regurgitation. Cardiac catheterization showed mild in-stent restenosis of the LAD, and distal LAD was 100% occluded. Patient was initially considered for transcatheter aortic valve replacement however he was found to be low surgical risk and therefore was offered surgical option for which he opted. On 12/13/2021 patient had aortic valve replacement using a 23 cm Inspirus pericardial bioprosthesis, exclusion of the left atrial appendage using a 35 mm a true clip, sternal closure with pineal cable and 3 TM plating system, and intraoperative transesophageal echocardiogram. Patient is seen in the postoperative period in the intensive care unit, he is intubated, sedated but started to emerge from anesthesia. He was initially on assist-control mode of ventilator with a rate of 12, tidal volume was 500, FiO2 100% and PEEP of 5. Postop blood gas showed pH of 7.249, pCO2 of 55.7, and pO2 of 388 and FiO2 was dropped down to 50%, we increased the rate to 22. Hemodynamically patient has been stable, he is in sinus mechanism with a rate of 77 BPM, blood pressure is 109/52, PA pressures 46/19, CVP 16, cardiac output is 7.2, and cardiac index is 3.2 with a CVP of 16-18. Currently has 0.9 normal saline at a rate of 50 ML per hour, Diprivan is at 20 mics per kilo per minute, and insulin at 60 units per hour. Patient has 2 mediastinal chest tubes in place with 70 mL of serosanguineous output, no evidence of air leak, both chest tubes are white conn ected to the same Pleur-evac and connected to the oral suction. Sternum is clean dry and intact, incision is covered with surgical dressing, AV wires are in place connected to temporary pacemaker. Postoperative chest x-ray and labs are pending. 12/14/2021, the patient is extubated and the patient is currently on 2 L of oxygen by nasal cannula. I extubated approximately 3 hours following his alegre rgery and following his arrival to the ICU. The patient was given a spelled his breathing trial as the patient adequate weaning parameters. The blood gases following a 30 minutes of spelled his breathing trial showed a component of respiratory acidosis. The patient was quite asynchronous and was not tolerating the ET tube. I made a decision to extubate the patient. Postextubation, he was placed on a BiPAP initially at the pressures of 12/5 and later on 15/5 and he was kept on BiPAP overnight. Subsequent blood gases showed improvement and acid base status and the most recent blood gases from yesterday showed a pH of 7.28 with a pCO2 of 48 and pO2 of 152 and this was done and FiO2 of 40%. This morning, he is on 2 L. Chest tubes are still in place. Chest x-ray showing cardiac regular pulmonary edema and there is no evidence of any pneumothorax. The patient is a mediastinal and left pleural chest tube. Cardiac rhythm is sinus. Rosman-Miles catheter in place. The patient developed a hemoglobin of as low as 5.9 postop. The patient received a total of 3 units of packed RBC and th e most recent hemoglobin is at 7.4. Cardiac rhythm is sinus. He is known to have obstructive sleep apnea and the patient has been maintained on CPAP pressure of 10 cm of water outpatient. Rest of the electrolytes all stable for now. 12/15/2021, the patient remains extubated on 2 L of oxygen by nasal cannula. A chest x-ray from today showing bilateral pleural effusion more so on the right and the patient is pulling only 500 mL on his incentive spirometer. Overnight, the patient spent in the BiPAP at a pressure of 12/5 with an FiO2 of 40%. No evidence of any pneumothorax. The output from the mediastinal chest tubes are minimal and the chest tubes are going to be removed today. Sternum stable clean and intact. Cardiac rhythm is sinus. He is awake and oriented and his following commands and answering questions appropriately without any major difficulties. No focal neurological deficit. Rosman-Miles catheter is removed. The cordis was removed today. Meanwhile, the patient's hemoglobin today is at9.1 with a white cell count of 11 and the BUN is at 17 with a creatinine of 1.0. The rest of the electrodes are all within normal limits. The patient has no specific complaints. The plan is to chest that amounts to a cardiac floor and leave the ICU today. I discussed the need for thoracentesis specially the fluid on the right remains unchanged. The patient has a moderate-sized right- sided pleural effusion. He'll be given a dose of diuretics and he'll be encouraged to use Objective - Vital Signs Vital signs: Vital Signs Temp 98.3 F 12/15/21 08:00 Pulse 80 12/15/21 08:07 Resp 20 12/15/21 08:00 BP 124/89 12/15/21 08:00 Pulse Ox 100 12/15/21 08:00 FiO2 40 12/15/21 03:29 Intake & Output 12/14/21 12/15/21 12/15/21 18:59 06:59 18:59 Intake Total 1634.395 688.024 84.560 Output Total 1155 690 Balance 479.395 -1.976 84.560 Weight 115.7 kg 118.3 kg Intake: IV 733 636 76 Calcium Gluconate in NaCl 100 1 gm In Saline 1 100ml. bag @ 100 mls/hr IVPB ONCE ONE Rx#:[id number] Cardiac Output 0.9 Sodium 20 Chloride Pressure Bag 0.9 Sodium 63 36 6 Chloride Sodium Chloride 0.9% 1, 550 600 70 000 ml @ 20 mls/hr IV . Q24H SILVANO Rx#:[id number] Intake, IV Titration 291.395 52.024 8.560 Amount Insulin Regular 100 unit 50.719 52.024 8.560 In Sodium Chloride 0.9% 100 ml @ Per Protocol IV .Q0M SILVANO Rx#:[id number] Norepinephrine 4 mg In 240.676 Sodium Chloride 0.9% 250 ml @ 0.02 MCG/KG/MIN 8. 504 mls/hr IV .Q24H SILVANO Rx#:[id number] Oral 610 Blood Product 0 Rc As-1 Unit 0 [id number] Output: Chest Tube Drainage 60 60 Bilateral Mediastinal 60 60 Urine 1095 630 Other: Voiding Method Indwelling Catheter Indwelling Catheter # Voids 0 ABP, PAP, CO, CI - Last Documented Arterial Blood Pressure 119/42 Pulmonary Artery Pressure 27/10 Cardiac Output 8.1 Cardiac Index 3.6 - Exam CONSTITUTIONAL: Appears comfortable, cooperative, no acute distress RESPIRATORY: Lungs sounds diminished bilaterally. Respirations even, nonlabored. Currently on 2 L nasal cannula with oxygen saturation 96%. Able to achieve 500 mL on incentive spirometry diminished breath sounds bilaterally a long with dullness to percussion consistent with pleural effusion. CARDIOVASCULAR: S1, S2 present. Regular rate and rhythm, sinus rhythm on telemetry. Sternum stable. Palpable peripheral pulses bilaterally. No edema present. No calf pain or tenderness noted. Heart hugger in place with patient demonstrating appropriate use. Antiembolism stockings, SCDs present. GASTROINTESTINAL: Abdomen soft, nontender, nondistended, obese. Hypoactive bowel sounds present 4 quadrants. Tolerating clear liquids. Negative flatus GENITOURINARY: Luna present draining clear, yellow urine. Output overnight 35-50 mL per hour INTEGUMENTARY: Skin is warm and dry with evidence of good perfusion. Anterior chest incision well approximated and covered with dry intact dressing NEUROLOGIC: Cranial nerves II through XII intact MUSKULOSKELETAL: Able to move all extremities, strength equal bilaterally PSYCHIATRIC: Alert and oriented to person place and time, appropriate affect, intact judgment and insight INVASIVE LINES AND TUBES: Mediastinal chest tubes present and connected to wall suction, - Labs CBC & Chem 7: 12/15/21 05:43 12/15/21 05:43 Labs: Abnormal Lab Results - Last 24 Hours (Table) 12/07/21 12/14/21 12/14/21 Range/Units 11:03 09:05 11:17 WBC (3.8-10.6) k/uL RBC (4.30-5.90) m/uL Hgb (13.0-17.5) gm/dL Hct (39.0-53.0) % Plt Count (150-450) k/uL Neutrophils # (1.3-7.7) k/uL Lymphocytes # (1.0-4.8) k/uL Chloride (98-107) mmol/L Glucose (74-99) mg/dL POC Glucose (mg/dL) 177 H 105 H (75-99) mg/dL Total Protein (6.3-8.2) g/dL Crossmatch See Detail 05/12/14/21 12/14/21 Range/Units 12:13 14:11 15:11 WBC (3.8-10.6) k/uL RBC (4.30-5.90) m/uL Hgb (13.0-17.5) gm/dL Hct (39.0-53.0) % Plt Count (150-450) k/uL Neutrophils # (1.3-7.7) k/uL Lymphocytes # (1.0-4.8) k/uL Chloride (98-107) mmol/L Glucose (74-99) mg/dL POC Glucose (mg/dL) 124 H 313 H 228 H (75-99) mg/dL Total Protein (6.3-8.2) g/dL Crossmatch 12/14/21 12/14/21 12/14/21 Range/Units 17:16 18:11 18:55 WBC (3.8-10.6) k/uL RBC (4.30-5.90) m/uL Hgb (13.0-17.5) gm/dL Hct (39.0-53.0) % Plt Count (150-450) k/uL Neutrophils # (1.3-7.7) k/uL Lymphocytes # (1.0-4.8) k/uL Chloride (98-107) mmol/L Glucose (74-99) mg/dL POC Glucose (mg/dL) 131 H 133 H 176 H (75-99) mg/dL Total Protein (6.3-8.2) g/dL Crossmatch 12/14/21 12/14/21 12/14/21 Range/Units 20:05 21:21 22:40 WBC (3.8-10.6) k/uL RBC (4.30-5.90) m/uL Hgb (13.0-17.5) gm/dL Hct (39.0-53.0) % Plt Count (150-450) k/uL Neutrophils # (1.3-7.7) k/uL Lymphocytes # (1.0-4.8) k/uL Chloride (98-107) mmol/L Glucose (74-99) mg/dL POC Glucose (mg/dL) 218 H 205 H 141 H (75-99) mg/dL Total Protein (6.3-8.2) g/dL Crossmatch 12/14/21 12/15/21 12/15/21 Range/Units 23:58 00:58 01:59 WBC (3.8-10.6) k/uL RBC (4.30-5.90) m/uL Hgb (13.0-17.5) gm/dL Hct (39.0-53.0) % Plt Count (150-450) k/uL Neutrophils # (1.3-7.7) k/uL Lymphocytes # (1.0-4.8) k/uL Chloride (98-107) mmol/L Glucose (74-99) mg/dL POC Glucose (mg/dL) 132 H 129 H 155 H (75-99) mg/dL Total Protein (6.3-8.2) g/dL Crossmatch 12/15/21 12/15/21 12/15/21 Range/Units 03:02 04:02 05:07 WBC (3.8-10.6) k/uL RBC (4.30-5.90) m/uL Hgb (13.0-17.5) gm/dL Hct (39.0-53.0) % Plt Count (150-450) k/uL Neutrophils # (1.3-7.7) k/uL Lymphocytes # (1.0-4.8) k/uL Chloride (98-107) mmol/L Glucose (74-99) mg/dL POC Glucose (mg/dL) 139 H 137 H 137 H (75-99) mg/dL Total Protein (6.3-8.2) g/dL Crossmatch 12/15/21 12/15/21 12/15/21 Range/Units 05:43 05:43 06:05 WBC 11.1 H (3.8-10.6) k/uL RBC 3.06 L (4.30-5.90) m/uL Hgb 9.1 L D (13.0-17.5) gm/dL Hct 28.8 L (39.0-53.0) % Plt Count 120 L (150-450) k/uL Neutrophils # 9.0 H (1.3-7.7) k/uL Lymphocytes # 0.9 L (1.0-4.8) k/uL Chloride 108 H (98-107) mmol/L Glucose 117 H (74-99) mg/dL POC Glucose (mg/dL) 155 H (75-99) mg/dL Total Protein 6.2 L (6.3-8.2) g/dL Crossmatch 12/15/21 12/15/21 12/15/21 Range/Units 06:59 08:13 09:03 WBC (3.8-10.6) k/uL RBC (4.30-5.90) m/uL Hgb (13.0-17.5) gm/dL Hct (39.0-53.0) % Plt Count (150-450) k/uL Neutrophils # (1.3-7.7) k/uL Lymphocytes # (1.0-4.8) k/uL Chloride (98-107) mmol/L Glucose (74-99) mg/dL POC Glucose (mg/dL) 138 H 178 H 185 H (75-99) mg/dL Total Protein (6.3-8.2) g/dL Crossmatch Assessment and Plan Plan: Assessment: #1. Severe aortic valve stenosis, status post aortic valve replacement using a 23 mm is for his pericardial bioprosthesis, stage appendage exclusion, sternal closure, and intraoperative transesophageal echocardiogram on 12/13/2021 patient is postop day #2 extubated to nasal cannula. #2. Moderateto severe aortic valve stenosis and history of coronary artery disease with previous stenting of the LAD #3. Acute hypoxic/hypercapnic respiratory failure, expected outcome post surgery. The patient is currently on 2 L about 2 by nasal cannula. Repeat chest x-ray from today shows bilateral pleural effusion more so on the right. The patient is pulling approximately 500 on the incentive spirometer. #4. History of smoking, preop FEV1 was 2.27 L or 70% of predicted #5. Morbid obesity with BMI 35.3 kg/m #6. Hypertension #7. Hyperlipidemia #8. Obstructive sleep apnea on CPAP #9. History of coronary artery disease with previous stenting of the LAD #10, anemia, anticipated outcome for surgery, dilutional and intraoperative blood loss and the patient received a total of 3 units of packed RBCs. Plan: Given a dose of Lasix 40 mg IV push Repeat chest x-ray in the morning with a possibility of a right-sided thoracentesis of the throat fluid remains unchanged Incentive spirometer Use CPAP of 10 cm of water Lasix 40 mg IV 1 Remove the mediastinal chest tubes Hemodynamically stable and the patient's cardiac rhythm is sinus Transferred to the cardiac floor Possible thoracentesis on the right if no improvement
[2021-12-15] MEDS: FLUoxetine HCL 10 MG CAP PO SCH (09:57)
[2021-12-15 10:02] LABS: Glucose,Whole Blood 176 mg/dL (75-99)
[2021-12-15 11:04] LABS: Glucose,Whole Blood 110 mg/dL (75-99)
[2021-12-15 11:57] LABS: Glucose,Whole Blood 129 mg/dL (75-99)
[2021-12-15 13:13] LABS: Glucose,Whole Blood 250 mg/dL (75-99)
--- NOTE | 2021-12-15 13:25 | P.PN ---
Subjective Progress Note Date: 12/15/21 Principal diagnosis: Aortic valve replacement Patient is a 66-year-old male for history of diabetes, hypertension, dyslipidemia, FRANCISCO, tobacco abuse, coronary artery disease with a totally occluded LAD status post stenting at [facility], and severe aortic stenosis who presented for elective aortic valve replacement. 12/15/2021: Patient seen and examined he is doing well he is tolerating an oral diet. His chest tubes were removed by surgical team. Patient currently on insulin drip however is now eating and drinking well with blood sugars are well- controlled. Patient off levophed. Objective - Vital Signs Vital signs: Vital Signs Temp 98.3 F 12/15/21 08:00 Pulse 81 12/15/21 11:00 Resp 20 12/15/21 11:00 BP 108/65 12/15/21 11:09 Pulse Ox 94 L 12/15/21 11:00 FiO2 40 12/15/21 10:50 Intake & Output 12/14/21 12/15/21 12/15/21 18:59 06:59 18:59 Intake Total 1634.395 688.024 144.222 Output Total 1155 690 Balance 479.395 -1.976 144.222 Weight 115.7 kg 118.3 kg Intake: IV 733 636 116 Calcium Gluconate in NaCl 100 1 gm In Saline 1 100ml. bag @ 100 mls/hr IVPB ONCE ONE Rx#:[id number] Cardiac Output 0.9 Sodium 20 Chloride Pressure Bag 0.9 Sodium 63 36 6 Chloride Sodium Chloride 0.9% 1, 550 600 110 000 ml @ 20 mls/hr IV . Q24H SIL[facility]ANO Rx#:[id number] Intake, IV Titration 291.395 52.024 28.222 Amount Insulin Regular 100 unit 50.719 52.024 28.222 In Sodium Chloride 0.9% 100 ml @ Per Protocol IV .Q0M SIL[facility]ANO Rx#:[id number] Norepinephrine 4 mg In 240.676 Sodium Chloride 0.9% 250 ml @ 0.02 MCG/KG/MIN 8. 504 mls/hr IV .Q24H SIL[facility]ANO Rx#:[id number] Oral 610 Blood Product 0 Rc As-1 Unit 0 [id number] Output: Chest Tube Drainage 60 60 Bilateral Mediastinal 60 60 Urine 1095 630 Other: Voiding Method Indwelling Catheter Indwelling Catheter Indwelling Catheter # Voids 0 ABP, PAP, CO, CI - Last Documented Arterial Blood Pressure 119/42 Pulmonary Artery Pressure 27/10 Cardiac Output 8.1 Cardiac Index 3.6 - Exam Constitutional: No acute distress, on room air HEENT: Pupils equally reactive to light, atraumatic, normocephalic. Lungs: Bilaterally diminished air entry Cardiovascular: S1-S2 normal Abdominal: Soft, nontender, no guarding, rebound or rigidity Extremities: No cyanosis or clubbing Neuro: No focal neurological signs alert - Labs CBC & Chem 7: 12/15/21 05:43 12/15/21 05:43 Labs: Abnormal Lab Results - Last 24 Hours (Table) 12/07/21 12/14/21 12/14/21 Range/Units 11:03 14:11 15:11 WBC (3.8-10.6) k/uL RBC (4.30-5.90) m/uL Hgb (13.0-17.5) gm/dL Hct (39.0-53.0) % Plt Count (150-450) k/uL Neutrophils # (1.3-7.7) k/uL Lymphocytes # (1.0-4.8) k/uL Chloride (98-107) mmol/L Glucose (74-99) mg/dL POC Glucose (mg/dL) 313 H 228 H (75-99) mg/dL Total Protein (6.3-8.2) g/dL Crossmatch See Detail 12/14/21 12/14/21 12/14/21 Range/Units 17:16 18:11 18:55 WBC (3.8-10.6) k/uL RBC (4.30-5.90) m/uL Hgb (13.0-17.5) gm/dL Hct (39.0-53.0) % Plt Count (150-450) k/uL Neutrophils # (1.3-7.7) k/uL Lymphocytes # (1.0-4.8) k/uL Chloride (98-107) mmol/L Glucose (74-99) mg/dL POC Glucose (mg/dL) 131 H 133 H 176 H (75-99) mg/dL Total Protein (6.3-8.2) g/dL Crossmatch 12/14/21 12/14/21 12/14/21 Range/Units 20:05 21:21 22:40 WBC (3.8-10.6) k/uL RBC (4.30-5.90) m/uL Hgb (13.0-17.5) gm/dL Hct (39.0-53.0) % Plt Count (150-450) k/uL Neutrophils # (1.3-7.7) k/uL Lymphocytes # (1.0-4.8) k/uL Chloride (98-107) mmol/L Glucose (74-99) mg/dL POC Glucose (mg/dL) 218 H 205 H 141 H (75-99) mg/dL Total Protein (6.3-8.2) g/dL Crossmatch 12/14/21 12/15/21 12/15/21 Range/Units 23:58 00:58 01:59 WBC (3.8-10.6) k/uL RBC (4.30-5.90) m/uL Hgb (13.0-17.5) gm/dL Hct (39.0-53.0) % Plt Count (150-450) k/uL Neutrophils # (1.3-7.7) k/uL Lymphocytes # (1.0-4.8) k/uL Chloride (98-107) mmol/L Glucose (74-99) mg/dL POC Glucose (mg/dL) 132 H 129 H 155 H (75-99) mg/dL Total Protein (6.3-8.2) g/dL Crossmatch 12/15/21 12/15/21 12/15/21 Range/Units 03:02 04:02 05:07 WBC (3.8-10.6) k/uL RBC (4.30-5.90) m/uL Hgb (13.0-17.5) gm/dL Hct (39.0-53.0) % Plt Count (150-450) k/uL Neutrophils # (1.3-7.7) k/uL Lymphocytes # (1.0-4.8) k/uL Chloride (98-107) mmol/L Glucose (74-99) mg/dL POC Glucose (mg/dL) 139 H 137 H 137 H (75-99) mg/dL Total Protein (6.3-8.2) g/dL Crossmatch 12/15/21 12/15/21 12/15/21 Range/Units 05:43 05:43 06:05 WBC 11.1 H (3.8-10.6) k/uL RBC 3.06 L (4.30-5.90) m/uL Hgb 9.1 L D (13.0-17.5) gm/dL Hct 28.8 L (39.0-53.0) % Plt Count 120 L (150-450) k/uL Neutrophils # 9.0 H (1.3-7.7) k/uL Lymphocytes # 0.9 L (1.0-4.8) k/uL Chloride 108 H (98-107) mmol/L Glucose 117 H (74-99) mg/dL POC Glucose (mg/dL) 155 H (75-99) mg/dL Total Protein 6.2 L (6.3-8.2) g/dL Crossmatch 12/15/21 12/15/21 12/15/21 Range/Units 06:59 08:13 09:03 WBC (3.8-10.6) k/uL RBC (4.30-5.90) m/uL Hgb (13.0-17.5) gm/dL Hct (39.0-53.0) % Plt Count (150-450) k/uL Neutrophils # (1.3-7.7) k/uL Lymphocytes # (1.0-4.8) k/uL Chloride (98-107) mmol/L Glucose (74-99) mg/dL POC Glucose (mg/dL) 138 H 178 H 185 H (75-99) mg/dL Total Protein (6.3-8.2) g/dL Crossmatch 12/15/21 12/15/21 12/15/21 Range/Units 10:00 11:03 11:54 WBC (3.8-10.6) k/uL RBC (4.30-5.90) m/uL Hgb (13.0-17.5) gm/dL Hct (39.0-53.0) % Plt Count (150-450) k/uL Neutrophils # (1.3-7.7) k/uL Lymphocytes # (1.0-4.8) k/uL Chloride (98-107) mmol/L Glucose (74-99) mg/dL POC Glucose (mg/dL) 176 H 110 H 129 H (75-99) mg/dL Total Protein (6.3-8.2) g/dL Crossmatch Assessment and Plan (1) CAD (coronary artery disease) Current Visit: Yes Status: Acute Code(s): I25.10 - ATHSCL HEART DISEASE OF [place] CORONARY ARTERY W/O ANG PCTRS SNOMED Code(s): 37822472 Plan: Type 2 diabetes - Patient is now tolerating an oral diet. We'll transition off of insulin drip and resume patient's home insulin regimen. Will start patient on Levemir 22 units twice a day, 10 units of prandial insulin before meals at bedtime, also add sliding scale coverage. - Continue with tight glycemic control - Most recent A1c 6.6 Obstructive sleep apnea - CPAP at bedtime Anemia -Hemoglobin is stable with most recent 9.1. Hypertension -Patient is now off of pressors. Continue to monitor blood pressure Status post aortic valve replacement for aortic stenosis - Per CT surgery -On amiodarone CAD status post LAD stent -Continue aspirin, Plavix, statin, metoprolol, . Cardiology is on board. DVT prophylaxis: Heparin subcu GI prophylaxis: Protonix
[2021-12-15 14:09] LABS: Glucose,Whole Blood 186 mg/dL (75-99)
[2021-12-15 15:15] LABS: Glucose,Whole Blood 172 mg/dL (75-99)
[2021-12-15 16:45] LABS: Glucose,Whole Blood 127 mg/dL (75-99)
[2021-12-15] MEDS: INSULIN ASPART (NovoLOG) 100 UNIT/ML VIAL SQ SCH ×3 (16:56→21:12)
[2021-12-15] MEDS ORDERED: INSULIN DETEMIR (LEVEMIR) 100 UNIT/ML SYR SQ SCH (21:00)
[2021-12-15] MEDS: SENNOSIDES-DOCUSATE SODIUM 1 EACH TAB PO SCH (21:00)
[2021-12-15 21:06] LABS: Glucose,Whole Blood 259 mg/dL (75-99)
[2021-12-15] MEDS: MELATONIN 3 MG TABLET PO SCH (22:19)
[2021-12-16 05:45] LABS: Basophils % (A) 0 %; Eosinophils % (A) 0 %; HCT 24.6 % (39.0-53.0); HGB 7.8 gm/dL (13.0-17.5); Hypochromasia Slight; Lymphocytes # (A) 0.9 k/uL (1.0-4.8); Lymphocytes % (A) 11 %; MCHC 31.6 g/dL (31.0-37.0); MCV 94.9 fL (80.0-100.0); Mean Platelet Volume 9.6; Monocytes # (A) 0.6 k/uL (0-1.0); Monocytes % (A) 6 %; Neutrophils # (A) 6.9 k/uL (1.3-7.7); Neutrophils % (A) 79 %; Platelet Count 115 k/uL (150-450); WBC 8.7 k/uL (3.8-10.6)
[2021-12-16 05:59] LABS: Albumin 3.7 g/dL (3.5-5.0); Calcium 8.4 mg/dL (8.4-10.2); Potassium 5.2 mmol/L (3.5-5.1); Total Bilirubin 0.6 mg/dL (0.2-1.3); Total Protein 5.7 g/dL (6.3-8.2)
[2021-12-16] MEDS: KETOROLAC 15 MG/ML 1 ML VIAL IVP SCH (06:23)
[2021-12-16 07:07] LABS: Glucose,Whole Blood 166 mg/dL (75-99)
[2021-12-16] MEDS: INSULIN ASPART (NovoLOG) 100 UNIT/ML VIAL SQ SCH ×7 (07:22→20:39)
[2021-12-16] MEDS: INSULIN DETEMIR (LEVEMIR) 100 UNIT/ML SYR SQ SCH ×2 (07:22→20:38)
[2021-12-16] MEDS ORDERED: methylPREDNISolone SOD SUCCI 125 MG/2 ML VIAL IV STA (07:47)
[2021-12-16] MEDS: IPRATROPIUM-ALBUTEROL 3 ML NEB INHALATION SCH ×4 (07:50→20:14)
--- NOTE | 2021-12-16 07:50 | P.PN ---
Subjective Progress Note Date: 12/16/21 This is a 58-year-old white male patient with past medical history of morbid ob esity, diabetes mellitus, hypertension, hyperlipidemia, obstructive sleep apnea on CPAP, tobacco abuse, coronary artery disease status post LAD stenting at the [facility]. Patient had been having history of chest pain and dyspnea on exertion for the past 2-3 years. He was found to have a murmur and moderate to severe aortic valve stenosis. In addition patient was complaining of fatigue . His preop workup included a transesophageal echocardiogram and cardiac catheterization that showed preserved LV function, an estimated valve area of the aortic valve of 1 cm, and a mean gradient of 40 mmHg with moderate mitral valve regurgitation. Cardiac catheterization showed mild in-stent restenosis of the LAD, and distal LAD was 100% occluded. Patient was initially considered for transcatheter aortic valve replacement however he was found to be low surgical risk and therefore was offered surgical option for which he opted. On 12/13/2021 patient had aortic valve replacement using a 23 cm Inspirus pericardial bioprosthesis, exclusion of the left atrial appendage using a 35 mm a true clip, sternal closure with pineal cable and 3 TM plating system, and intraoperative transesophageal echocardiogram. Patient is seen in the postoperative period in the intensive care unit, he is intubated, sedated but started to emerge from anesthesia. He was initially on assist-control mode of ventilator with a rate of 12, tidal volume was 500, FiO2 100% and PEEP of 5. Postop blood gas showed pH of 7.249, pCO2 of 55.7, and pO2 of 388 and FiO2 was dropped down to 50%, we increased the rate to 22. Hemodynamically patient has been stable, he is in sinus mechanism with a rate of 77 BPM, blood pressure is 109/52, PA pressures 46/19, CVP 16, cardiac output is 7.2, and cardiac index is 3.2 with a CVP of 16-18. Currently has 0.9 normal saline at a rate of 50 ML per hour, Diprivan is at 20 mics per kilo per minute, and insulin at 60 units per hour. Patient has 2 mediastinal chest tubes in place with 70 mL of serosanguineous output, no evidence of air leak, both chest tubes are white conn ected to the same Pleur-evac and connected to the oral suction. Sternum is clean dry and intact, incision is covered with surgical dressing, AV wires are in place connected to temporary pacemaker. Postoperative chest x-ray and labs are pending. 12/14/2021, the patient is extubated and the patient is currently on 2 L of oxygen by nasal cannula. I extubated approximately 3 hours following his alegre rgery and following his arrival to the ICU. The patient was given a spelled his breathing trial as the patient adequate weaning parameters. The blood gases following a 30 minutes of spelled his breathing trial showed a component of respiratory acidosis. The patient was quite asynchronous and was not tolerating the ET tube. I made a decision to extubate the patient. Postextubation, he was placed on a BiPAP initially at the pressures of 12/5 and later on 15/5 and he was kept on BiPAP overnight. Subsequent blood gases showed improvement and acid base status and the most recent blood gases from yesterday showed a pH of 7.28 with a pCO2 of 48 and pO2 of 152 and this was done and FiO2 of 40%. This morning, he is on 2 L. Chest tubes are still in place. Chest x-ray showing cardiac regular pulmonary edema and there is no evidence of any pneumothorax. The patient is a mediastinal and left pleural chest tube. Cardiac rhythm is sinus. [place] catheter in place. The patient developed a hemoglobin of as low as 5.9 postop. The patient received a total of 3 units of packed RBC and th e most recent hemoglobin is at 7.4. Cardiac rhythm is sinus. He is known to have obstructive sleep apnea and the patient has been maintained on CPAP pressure of 10 cm of water outpatient. Rest of the electrolytes all stable for now. 12/15/2021, the patient remains extubated on 2 L of oxygen by nasal cannula. A chest x-ray from today showing bilateral pleural effusion more so on the right and the patient is pulling only 500 mL on his incentive spirometer. Overnight, the patient spent in the BiPAP at a pressure of 12/5 with an FiO2 of 40%. No evidence of any pneumothorax. The output from the mediastinal chest tubes are minimal and the chest tubes are going to be removed today. Sternum stable clean and intact. Cardiac rhythm is sinus. He is awake and oriented and his following commands and answering questions appropriately without any major difficulties. No focal neurological deficit. [place] catheter is removed. The cordis was removed today. Meanwhile, the patient's hemoglobin today is at9.1 with a white cell count of 11 and the BUN is at 17 with a creatinine of 1.0. The rest of the electrodes are all within normal limits. The patient has no specific complaints. The plan is to chest that amounts to a cardiac floor and leave the ICU today. I discussed the need for thoracentesis specially the fluid on the right remains unchanged. The patient has a moderate-sized right- sided pleural effusion. He'll be given a dose of diuretics and he'll be encouraged to use 12/16/2021, the patient's breathing is slightly more labored and the patient requested to go back on his CPAP. Currently is on a CPAP pressure of 10 cm of water and FiO2 of 40%. Chest x-ray shows improvement in the volume status. There may be some residual atelectasis and effusion the lung bases bilaterally. There is no acute abnormality. It is essentially showing postsurgical changes with sternal wires. Current pulse ox 98%. The sitting patient is sitting up on a chair while on his BiPAP. He is breathing slightly labored and is also bronchospastic and wheezy. He refused his breathing treatments yesterday. Meanwhile, he has adequate control with use of Toradol. He was given Toradol 50 mg every 6 hours for pain and the creatinine is up to 1.35 with a mean of 31. Potassium level is at 5.2. There is also a drop in hemoglobin down to 7.8. He was given a dose of Lasix yesterday and overall fluid balance over the past 24 hours has been +477 mL. Response to the Lasix was somewhat suboptimal. Alert. Awake. Cardiac rhythm is sinus. He is hemodynamically stable. No other significant events otherwise for now. Chest tubes have been removed. Tolerating diet. No nausea. No vomiting. No emesis. No altered mentation. Objective - Vital Signs Vital signs: Vital Signs Temp 97.8 F 12/16/21 04:00 Pulse 62 12/16/21 04:00 Resp 14 12/16/21 04:00 BP 103/40 12/16/21 04:00 Pulse Ox 98 12/16/21 04:00 FiO2 40 12/16/21 07:40 Intake & Output 12/15/21 12/16/21 12/16/21 18:59 06:59 18:59 Intake Total 184.222 400 Output Total 315 350 0 Balance -130.778 50 0 Weight 119.3 kg Intake: IV 156 0 Pressure Bag 0.9 Sodium 6 Chloride Sodium Chloride 0.9% 1, 150 0 000 ml @ 20 mls/hr IV . Q24H SILVANO Rx#:[id number] Intake, IV Titration 28.222 Amount Insulin Regular 100 unit 28.222 In Sodium Chloride 0.9% 100 ml @ Per Protocol IV .Q0M SILVANO Rx#:[id number] Oral 400 Output: Urine 315 350 0 Other: Voiding Method Indwelling Catheter Urinal # Voids 0 1 ABP, PAP, CO, CI - Last Documented Arterial Blood Pressure 119/42 Pulmonary Artery Pressure 27/10 Cardiac Output 8.1 Cardiac Index 3.6 - Exam CONSTITUTIONAL: Appears comfortable, cooperative, no acute distress currently on a BiPAP at a pressure of 10 cm of water with an FiO2 of 40%. RESPIRATORY: Lungs sounds diminished bilaterally. . Able to achieve 750 mL on incentive spirometry diminished breath sounds bilaterally along with dullness to percussion consistent with pleural effusion. The patient is bronchospastic and wheezy and then there is increased expiratory wheezes throughout the lung godinez most on the lung bases. He is using incentive spirometer and his bowling approximately 750. While off the BiPAP, the patient was on oxygen at 4 L. CARDIOVASCULAR: S1, S2 present. Regular rate and rhythm, sinus rhythm on telemetry. Sternum stable. Palpable peripheral pulses bilaterally. No edema present. No calf pain or tenderness noted. Heart hugger in place with patient demonstrating appropriate use. Antiembolism stockings, SCDs present. GASTROINTESTINAL: Abdomen soft, nontender, nondistended, obese. Hypoactive bow el sounds present 4 quadrants. Tolerating clear liquids. Negative flatus GENITOURINARY: Luna present draining clear, yellow urine. Output overnight 35-50 mL per hour INTEGUMENTARY: Skin is warm and dry with evidence of good perfusion. Anterior chest incision well approximated and covered with dry intact dressing NEUROLOGIC: Cranial nerves II through XII intact MUSKULOSKELETAL: Able to move all extremities, strength equal bilaterally PSYCHIATRIC: Alert and oriented to person place and time, appropriate affect, intact judgment and insight INVASIVE LINES AND TUBES: Mediastinal chest tubes present and connected to wall suction, - Labs CBC & Chem 7: 12/16/21 05:15 12/16/21 05:15 Labs: Abnormal Lab Results - Last 24 Hours (Table) 12/15/21 12/15/21 12/15/21 Range/Units 08:13 09:03 10:00 RBC (4.30-5.90) m/uL Hgb (13.0-17.5) gm/dL Hct (39.0-53.0) % Plt Count (150-450) k/uL Lymphocytes # (1.0-4.8) k/uL Sodium (137-145) mmol/L Potassium (3.5-5.1) mmol/L BUN (9-20) mg/dL Creatinine (0.66-1.25) mg/dL Glucose (74-99) mg/dL POC Glucose (mg/dL) 178 H 185 H 176 H (75-99) mg/dL Total Protein (6.3-8.2) g/dL 12/15/21 12/15/21 12/15/21 Range/Units 11:03 11:54 13:11 RBC (4.30-5.90) m/uL Hgb (13.0-17.5) gm/dL Hct (39.0-53.0) % Plt Count (150-450) k/uL Lymphocytes # (1.0-4.8) k/uL Sodium (137-145) mmol/L Potassium (3.5-5.1) mmol/L BUN (9-20) mg/dL Creatinine (0.66-1.25) mg/dL Glucose (74-99) mg/dL POC Glucose (mg/dL) 110 H 129 H 250 H (75-99) mg/dL Total Protein (6.3-8.2) g/dL 12/15/21 12/15/21 12/15/21 Range/Units 14:07 15:12 16:43 RBC (4.30-5.90) m/uL Hgb (13.0-17.5) gm/dL Hct (39.0-53.0) % Plt Count (150-450) k/uL Lymphocytes # (1.0-4.8) k/uL Sodium (137-145) mmol/L Potassium (3.5-5.1) mmol/L BUN (9-20) mg/dL Creatinine (0.66-1.25) mg/dL Glucose (74-99) mg/dL POC Glucose (mg/dL) 186 H 172 H 127 H (75-99) mg/dL Total Protein (6.3-8.2) g/dL 12/15/21 12/16/21 12/16/21 Range/Units 21:04 05:15 05:15 RBC 2.60 L (4.30-5.90) m/uL Hgb 7.8 L (13.0-17.5) gm/dL Hct 24.6 L (39.0-53.0) % Plt Count 115 L (150-450) k/uL Lymphocytes # 0.9 L (1.0-4.8) k/uL Sodium 136 L (137-145) mmol/L Potassium 5.2 H (3.5-5.1) mmol/L BUN 31 H (9-20) mg/dL Creatinine 1.35 H (0.66-1.25) mg/dL Glucose 163 H (74-99) mg/dL POC Glucose (mg/dL) 259 H (75-99) mg/dL Total Protein 5.7 L (6.3-8.2) g/dL 12/16/21 Range/Units 07:06 RBC (4.30-5.90) m/uL Hgb (13.0-17.5) gm/dL Hct (39.0-53.0) % Plt Count (150-450) k/uL Lymphocytes # (1.0-4.8) k/uL Sodium (137-145) mmol/L Potassium (3.5-5.1) mmol/L BUN (9-20) mg/dL Creatinine (0.66-1.25) mg/dL Glucose (74-99) mg/dL POC Glucose (mg/dL) 166 H (75-99) mg/dL Total Protein (6.3-8.2) g/dL Assessment and Plan Plan: Assessment: #1. Severe aortic valve stenosis, status post aortic valve replacement using a 23 mm is for his pericardial bioprosthesis, stage appendage exclusion, sternal closure, and intraoperative transesophageal echocardiogram on 12/13/2021 patient is postop day #3 extubated to nasal cannula. #2. Moderateto severe aortic valve stenosis and history of coronary artery disease with previous stenting of the LAD #3. Acute hypoxic/hypercapnic respiratory failure, expected outcome post surgery. The patient is encountering increased shortness of breath. There may be a combination of atelectasis and effusions chest x-ray. There is improvement in aeration. He is more bronchospastic and wheezy and is requesting a CPAP is currently at the pressure of 10 cm of water with an FiO2 of 40%. While off the CPAP, the patient was on O2 at 4 L. Sternum is stable clean and intact. The patient is having increased bronchospasm wheezing on today's evaluation. #4. History of smoking, preop FEV1 was 2.27 L or 70% of predicted #5. Morbid obesity with BMI 35.3 kg/m #6. Hypertension #7. Hyperlipidemia #8. Obstructive sleep apnea on CPAP #9. History of coronary artery disease with previous stenting of the LAD #10, anemia, anticipated outcome for surgery, dilutional and intraoperative blood loss and the patient received a total of 3 units of packed RBCs. The patient had a drop in hemoglobin down to 7.8 without evidence of an acute bleed. We'll continue to monitor #11 acute kidney injury suspected metastatic creatinine is at 1.3 Plan: Ultrasound of the chest to evaluate for any sizable effusion that needs to be drained DuoNeb nebulized treatments 4 times a day IV Solu Medrol 60 mg 2 doses for today Monitor renal function No diuretics Keep the patient on CPAP for now. May wean him at a later stage to nasal cannula once the patient feels more comfortable. We'll consider thoracentesis if there is any sizable effusion monitor hemoglobin monitor renal function Cardiac rhythm is sinus We'll continue to follow. We'll give the patient ICU for today.
--- NOTE | 2021-12-16 07:59 | P.PN ---
Subjective Progress Note Date: 12/16/21 Principal diagnosis: Severe aortic valve stenosis, CAD status post PCI stenting for [employer] of the LAD at [facility] 2020, hypertension, hyperlipidemia, obesity, obstructive sleep apnea, insulin-dependent diabetes, previous tobacco dependence, mild COPD. Vaccinated against Covid. POD #3 aortic valve replacement using a 23 mm Inspiris pericardial bioprosthesis, exclusion of left atrial appendage using a 35 mm AtriClip, sternal closure with pineal cable and Tritium plating system, intraoperative transesophageal echocardiogram and epi-aortic scanning Postoperative acute blood loss anemia and thrombocytopenia, expected given the hemodilution and cardiopulmonary bypass pump Acute kidney injury, likely due to medications The patient was seen and examined this morning sitting up in a recliner in the intensive care unit in breakfast. Appears a bit more short of breath than yesterday, lungs sounds diminished with expiratory wheezes in the bases, after breakfast patient has to be put back on his BiPAP. Remains in sinus rhythm, hemodynamically stable. Attempting incentive spirometry but with poor effort, only achieving a little over 500 mL. He did ambulate in the hallway yesterday with assistance. Objective - Vital Signs Vital signs: Vital Signs Temp 97.8 F 12/16/21 04:00 Pulse 62 12/16/21 04:00 Resp 14 12/16/21 04:00 BP 103/40 12/16/21 04:00 Pulse Ox 98 12/16/21 04:00 FiO2 40 12/16/21 07:40 Intake & Output 12/15/21 12/16/21 12/16/21 18:59 06:59 18:59 Intake Total 184.222 400 Output Total 315 350 0 Balance -130.778 50 0 Weight 119.3 kg Intake: IV 156 0 Pressure Bag 0.9 Sodium 6 Chloride Sodium Chloride 0.9% 1, 150 0 000 ml @ 20 mls/hr IV . Q24H SILVANO Rx#:[id number] Intake, IV Titration 28.222 Amount Insulin Regular 100 unit 28.222 In Sodium Chloride 0.9% 100 ml @ Per Protocol IV .Q0M SILVANO Rx#:[id number] Oral 400 Output: Urine 315 350 0 Other: Voiding Method Indwelling Catheter Urinal # Voids 0 1 ABP, PAP, CO, CI - Last Documented Arterial Blood Pressure 119/42 Pulmonary Artery Pressure 27/10 Cardiac Output 8.1 Cardiac Index 3.6 - Exam CONSTITUTIONAL: Appears a bit labored with his breathing RESPIRATORY: Lungs sounds diminished bilaterally with expiratory wheezes present. Respirations slightly labored. Currently on CPAP. Able to achieve 5 00 mL on incentive spirometry. Strong nonproductive cough. CARDIOVASCULAR: S1, S2 present. Regular rate and rhythm, sinus rhythm on telemetry. Sternum stable. Palpable peripheral pulses bilaterally. No edema present. No calf pain or tenderness noted. Heart hugger in place with patient demonstrating appropriate use. Antiembolism stockings, SCDs present. GASTROINTESTINAL: Abdomen soft, nontender, nondistended, obese. Active bowel sounds present 4 quadrants. Tolerating diet. GENITOURINARY: Continues to void although small amounts INTEGUMENTARY: Skin is warm and dry with evidence of good perfusion. Anterior chest incision well approximated and covered with dry intact dressing NEUROLOGIC: Cranial nerves II through XII intact MUSKULOSKELETAL: Able to move all extremities, strength equal bilaterally PSYCHIATRIC: Alert and oriented to person place and time, appropriate affect, intact judgment and insight INVASIVE LINES AND TUBES: A/V epicardial pacemaker wires present, grounded - Allied health notes Allied health notes reviewed: nursing - Labs CBC & Chem 7: 12/16/21 05:15 12/16/21 05:15 Labs: Abnormal Lab Results - Last 24 Hours (Table) 12/15/21 12/15/21 12/15/21 Range/Units 08:13 09:03 10:00 RBC (4.30-5.90) m/uL Hgb (13.0-17.5) gm/dL Hct (39.0-53.0) % Plt Count (150-450) k/uL Lymphocytes # (1.0-4.8) k/uL Sodium (137-145) mmol/L Potassium (3.5-5.1) mmol/L BUN (9-20) mg/dL Creatinine (0.66-1.25) mg/dL Glucose (74-99) mg/dL POC Glucose (mg/dL) 178 H 185 H 176 H (75-99) mg/dL Total Protein (6.3-8.2) g/dL 12/15/21 12/15/21 12/15/21 Range/Units 11:03 11:54 13:11 RBC (4.30-5.90) m/uL Hgb (13.0-17.5) gm/dL Hct (39.0-53.0) % Plt Count (150-450) k/uL Lymphocytes # (1.0-4.8) k/uL Sodium (137-145) mmol/L Potassium (3.5-5.1) mmol/L BUN (9-20) mg/dL Creatinine (0.66-1.25) mg/dL Glucose (74-99) mg/dL POC Glucose (mg/dL) 110 H 129 H 250 H (75-99) mg/dL Total Protein (6.3-8.2) g/dL 12/15/21 12/15/21 12/15/21 Range/Units 14:07 15:12 16:43 RBC (4.30-5.90) m/uL Hgb (13.0-17.5) gm/dL Hct (39.0-53.0) % Plt Count (150-450) k/uL Lymphocytes # (1.0-4.8) k/uL Sodium (137-145) mmol/L Potassium (3.5-5.1) mmol/L BUN (9-20) mg/dL Creatinine (0.66-1.25) mg/dL Glucose (74-99) mg/dL POC Glucose (mg/dL) 186 H 172 H 127 H (75-99) mg/dL Total Protein (6.3-8.2) g/dL 12/15/21 12/16/21 12/16/21 Range/Units 21:04 05:15 05:15 RBC 2.60 L (4.30-5.90) m/uL Hgb 7.8 L (13.0-17.5) gm/dL Hct 24.6 L (39.0-53.0) % Plt Count 115 L (150-450) k/uL Lymphocytes # 0.9 L (1.0-4.8) k/uL Sodium 136 L (137-145) mmol/L Potassium 5.2 H (3.5-5.1) mmol/L BUN 31 H (9-20) mg/dL Creatinine 1.35 H (0.66-1.25) mg/dL Glucose 163 H (74-99) mg/dL POC Glucose (mg/dL) 259 H (75-99) mg/dL Total Protein 5.7 L (6.3-8.2) g/dL 12/16/21 Range/Units 07:06 RBC (4.30-5.90) m/uL Hgb (13.0-17.5) gm/dL Hct (39.0-53.0) % Plt Count (150-450) k/uL Lymphocytes # (1.0-4.8) k/uL Sodium (137-145) mmol/L Potassium (3.5-5.1) mmol/L BUN (9-20) mg/dL Creatinine (0.66-1.25) mg/dL Glucose (74-99) mg/dL POC Glucose (mg/dL) 166 H (75-99) mg/dL Total Protein (6.3-8.2) g/dL - Imaging and Cardiology Chest x-ray: report reviewed, image reviewed Assessment and Plan Assessment: 1. Severe aortic valve stenosis, status post aortic valve replacement 2. CAD status post PCI stenting for [employer] of the LAD at [facility] 2020 3. History hypertension, currently hypotensive on low-dose levo 4. Hyperlipidemia, treated, cholesterol 154, LDL 62, triglycerides 292 5. Obesity 6. Obstructive sleep apnea with home CPAP use 7. Insulin-dependent diabetes, preoperative hemoglobin A1c 6.6% 8. Previous tobacco dependence 9. Mild COPD, preoperative FEV1 61% of predicted 10. Vaccinated against Covid. 11. Postoperative acute blood loss anemia and thrombocytopenia, expected 12. Acute kidney injury Plan: 1. Continue aspirin, statin, Plavix, beta brooke. Will increase beta brooke therapy as tolerated 2. Wean O2 as tolerated. Encourage incentive spirometry use 10 times every hour while awake. Bronchodilators, CPAP per pulmonology. IV steroids per pulmonology 3. Will obtain ultrasound of the right chest for possible thoracentesis 4. Increase activity, ambulate as tolerated. PT/OT/cardiac rehab following 5. Will monitor daily labs and x-rays. Electrolyte replacement per protocol. No Lasix today 6. GI/DVT prophylaxis 7. Pain control with current medication regimen. Toradol discontinued due to kidney function 8. Insulin management per primary care service 9. May bladder scan and straight cath for greater than 300 mL residual 10. Strict accurate intake and output. Daily weights 11. More recommendations to follow
--- NOTE | 2021-12-16 08:10 | XR ---
EXAMINATION TYPE: XR chest 1V portable DATE OF EXAM: 12/16/2021 COMPARISON: 12/07/2021 INDICATION: Short of breath TECHNIQUE: Single frontal view of the chest is obtained. FINDINGS: The heart size is enlarged. The pulmonary vasculature is normal. Bibasilar infiltrates and/or pleural effusions are present. IMPRESSION: 1. Basilar infiltrate or pleural effusions, stable. 2. Cardiomegaly
[2021-12-16] MEDS: FERROUS SULFATE 325 MG TAB PO SCH ×2 (08:41→16:36)
[2021-12-16] MEDS: PANTOPRAZOLE 40 MG TABLET PO SCH (08:41)
[2021-12-16] MEDS: ASCORBIC ACID 500 MG TAB PO SCH ×2 (08:41→16:36)
[2021-12-16] MEDS: METOPROLOL TARTRATE 25 MG TAB PO SCH (08:42)
[2021-12-16] MEDS: MULTIVITAMINS, THERA 1 EACH TAB PO SCH (08:42)
[2021-12-16] MEDS: ATORVASTATIN 40 MG TAB PO SCH (08:42)
--- NOTE | 2021-12-16 08:42 | P.PN ---
Subjective HISTORY OF PRESENTING ILLNESS This is a 66-year-old gentleman with history of hypertension, diabetes, obesity and hyperlipidemia with history of ischemic heart disease and stent placement to the LAD done at [facility]. Patient has been having exertional dyspnea and was noted to have moderate to severe aortic stenosis. Recent evaluation showed a mean gradient of 40 mmHg across the aortic valve and also moderate mitral regurgitation. Cardiac catheterization showed mild in- stent stenosis of the LAD with total occluded distal LAD. Patient underwent aortic valve replacement. Patient is currently extubated. Patient was anemic requiring 2 units of blood transfusion. Waiting for the follow-up CBC. Complaints of chest discomfort and some shortness of breath. Doesn't appear to be in acute distress. His cardiac output was in the range of 7.2 L. No significant arrhythmias. Overall patient seemed to be progressing well. Patient apparently has been having some coughing spells associated with near- syncope. However this is not associated with bradycardia and patient has and uses pacemaker. Continue monitor his heart rhythm. Rule out any bradyarrhythmias. Rest of the management to be continued continued including incentive spirometry 12/15 Patient seen and examined. Patient asking for some pain medications secondary to the sternotomy however pain medications are somewhat relieving it. Denies any nausea or vomiting. Heart rates somewhat elevated when he gets up and walks around however noted to be sinus rhythm. Beta brooke was increased. 12/16 Patient seen and examined. Patient still having some pain around the sternotomy site. He was placed on Toradol yesterday however mild increasing creatinine. Hemoglobin down somewhat to 7.8 today. No hematochezia or melena. He has been using his BiPAP overnight and also felt somewhat short of breath this morning using it this morning. PHYSICAL EXAMINATION Vital signs reviewed. CONSTITUTIONAL: No apparent distress. HEENT: Head is normocephalic. Pupils are equal, round. Sclerae anicteric. Mucous membranes of the mouth are moist. No JVD. No carotid bruit. CHEST EXAMINATION: Lungs are clear to auscultation. No chest wall tenderness is noted on palpation or with deep breathing. HEART EXAMINATION: Regular rate and rhythm. S1, S2 heard. No murmurs, gallops or rub. ABDOMEN: Soft, nontender. Positive bowel sounds. EXTREMITIES: 2+ peripheral pulses, no lower extremity edema and no calf tenderness. NEUROLOGIC EXAMINATION: Patient is awake, alert and oriented x3. ASSESSMENT 1. Severe aortic stenosis status post surgical aortic valve replacement 2. 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 Hypertension 4. Blood loss anemia and thrombocytopenia 5. Obesity 6. Diabetes mellitus type 2 7. Sinus tachycardia Plan: Continue with aspirin, Plavix. Continue metoprolol. Monitor hemoglobin. Continue supportive care. Objective - Vital Signs Vital signs: Vital Signs Temp 97.8 F 12/16/21 04:00 Pulse 65 12/16/21 08:13 Resp 14 12/16/21 08:00 BP 109/67 12/16/21 08:00 Pulse Ox 98 12/16/21 08:00 FiO2 40 12/16/21 08:00 Intake & Output 12/15/21 12/16/21 12/16/21 18:59 06:59 18:59 Intake Total 184.222 400 Output Total 315 350 0 Balance -130.778 50 0 Weight 119.3 kg Intake: IV 156 0 Pressure Bag 0.9 Sodium 6 Chloride Sodium Chloride 0.9% 1, 150 0 000 ml @ 20 mls/hr IV . Q24H SILVANO Rx#:[id number] Intake, IV Titration 28.222 Amount Insulin Regular 100 unit 28.222 In Sodium Chloride 0.9% 100 ml @ Per Protocol IV .Q0M SILVANO Rx#:[id number] Oral 400 Output: Urine 315 350 0 Other: Voiding Method Indwelling Catheter Urinal # Voids 0 1 ABP, PAP, CO, CI - Last Documented Arterial Blood Pressure 119/42 Pulmonary Artery Pressure 27/10 Cardiac Output 8.1 Cardiac Index 3.6 - Labs CBC & Chem 7: 12/16/21 05:15 12/16/21 05:15 Labs: Abnormal Lab Results - Last 24 Hours (Table) 12/15/21 12/15/21 12/15/21 Range/Units 09:03 10:00 11:03 RBC (4.30-5.90) m/uL Hgb (13.0-17.5) gm/dL Hct (39.0-53.0) % Plt Count (150-450) k/uL Lymphocytes # (1.0-4.8) k/uL Sodium (137-145) mmol/L Potassium (3.5-5.1) mmol/L BUN (9-20) mg/dL Creatinine (0.66-1.25) mg/dL Glucose (74-99) mg/dL POC Glucose (mg/dL) 185 H 176 H 110 H (75-99) mg/dL Total Protein (6.3-8.2) g/dL 12/15/21 12/15/21 12/15/21 Range/Units 11:54 13:11 14:07 RBC (4.30-5.90) m/uL Hgb (13.0-17.5) gm/dL Hct (39.0-53.0) % Plt Count (150-450) k/uL Lymphocytes # (1.0-4.8) k/uL Sodium (137-145) mmol/L Potassium (3.5-5.1) mmol/L BUN (9-20) mg/dL Creatinine (0.66-1.25) mg/dL Glucose (74-99) mg/dL POC Glucose (mg/dL) 129 H 250 H 186 H (75-99) mg/dL Total Protein (6.3-8.2) g/dL 12/15/21 12/15/21 12/15/21 Range/Units 15:12 16:43 21:04 RBC (4.30-5.90) m/uL Hgb (13.0-17.5) gm/dL Hct (39.0-53.0) % Plt Count (150-450) k/uL Lymphocytes # (1.0-4.8) k/uL Sodium (137-145) mmol/L Potassium (3.5-5.1) mmol/L BUN (9-20) mg/dL Creatinine (0.66-1.25) mg/dL Glucose (74-99) mg/dL POC Glucose (mg/dL) 172 H 127 H 259 H (75-99) mg/dL Total Protein (6.3-8.2) g/dL 12/16/21 12/16/21 12/16/21 Range/Units 05:15 05:15 07:06 RBC 2.60 L (4.30-5.90) m/uL Hgb 7.8 L (13.0-17.5) gm/dL Hct 24.6 L (39.0-53.0) % Plt Count 115 L (150-450) k/uL Lymphocytes # 0.9 L (1.0-4.8) k/uL Sodium 136 L (137-145) mmol/L Potassium 5.2 H (3.5-5.1) mmol/L BUN 31 H (9-20) mg/dL Creatinine 1.35 H (0.66-1.25) mg/dL Glucose 163 H (74-99) mg/dL POC Glucose (mg/dL) 166 H (75-99) mg/dL Total Protein 5.7 L (6.3-8.2) g/dL
[2021-12-16] MEDS: FLUoxetine HCL 10 MG CAP PO SCH (08:43)
--- NOTE | 2021-12-16 09:01 | US ---
EXAMINATION TYPE: US chest DATE OF EXAM: 12/16/2021 COMPARISON: NONE CLINICAL HISTORY: right chest for thoracentesis. right pleural effusion TECHNIQUE: Targeted ultrasound of the posterior lower right hemithorax EXAM MEASUREMENTS: Right Pleural Effusion pocket size: 11.0 cm Right skin surface to fluid distance: 3.9 cm Right side marked for possible thoracentesis outside the dept. Pulmonologists are able to review the images in the patient?s EMR. IMPRESSIONS: Right pleural effusion
--- NOTE | 2021-12-16 09:25 | P.PCN ---
Date of Procedure: 12/16/21 Preoperative Diagnosis: Right-sided pleural effusion Postoperative Diagnosis: Right-sided pleural effusion Procedure(s) Performed: Ultrasound-guided right-sided pleural effusion Anesthesia: local Surgeon: Naun Song Estimated Blood Loss (ml): 0 Pathology: none sent Disposition: ICU Operative Findings: A time out was performed and the chest x-ray was reviewed, the appropriate side was confirmed and marked. My hands were washed immediately prior to the procedure. I wore a surgical cap, mask with protective eyewear, sterile gown and sterile gloves throughout the procedure. The patient was prepped and draped in a sterile manner using chlorhexidine scrub after the appropriate level was percussed and confirmed by ultrasound. 1% lidocaine was used to anesthesize the skin, subcutaneous tissue, superior aspect of the rib periosteum and parietal pleura. A finder needle was then introduced over the superior aspect of the rib to locate the pleural fluid; 2colored fluid was aspirated at a depth of approximately 2 cm. A 10-blade scalpel was used to jorden the skin at the insertion site. The [id number] needle was then introduced through the skin incision into the pleural space using negative aspiration pressure and the red colometric indicator to confirm appropriate positioning of the needle. The thoracentesis catheter was then threaded without difficulty. 1450 ml of bloody fluid was removed without difficulty. The catheter was then removed. No immediate complications were noted during the procedure. A post-procedure chest x-ray is pending at the time of this note. The fluid will not be sent for studies. Estimated blood loss is 0cc
--- NOTE | 2021-12-16 09:52 | XR ---
EXAMINATION TYPE: XR chest 1V portable DATE OF EXAM: 12/16/2021 COMPARISON: 12/16/2021 INDICATION: Post thoracentesis TECHNIQUE: Single frontal view of the chest is obtained. FINDINGS: The heart size is enlarged. The pulmonary vasculature is normal. Minimal infiltrate may be along the left diaphragm. IMPRESSION: 1. Minimal infiltrate at the left diaphragm pericolic atelectasis or pneumonia. Small effusion could be considered. Follow-up is recommended. 2. Cardiomegaly
[2021-12-16] MEDS: CLOPIDOGREL 75 MG TAB PO SCH (10:08)
[2021-12-16] MEDS: ASPIRIN 325 MG TAB PO SCH (10:09)
[2021-12-16] MEDS: HEPARIN SODIUM,PORCINE/PF 5,000 UNIT/0.5 ML SYRINGE SQ SCH ×2 (10:09→16:36)
[2021-12-16] MEDS: METOPROLOL TARTRATE 12.5 MG TAB PO SCH ×3 (10:09→22:17)
[2021-12-16 11:58] LABS: Glucose,Whole Blood 172 mg/dL (75-99)
[2021-12-16 12:02] LABS: HCT 25.7 % (39.0-53.0); HGB 7.9 gm/dL (13.0-17.5); Hypochromasia Moderate; MCH 29.5 pg (25.0-35.0); MCHC 30.8 g/dL (31.0-37.0); MCV 95.9 fL (80.0-100.0); Platelet Count 130 k/uL (150-450); RBC 2.68 m/uL (4.30-5.90); RDW 14.7 % (11.5-15.5); WBC 9.1 k/uL (3.8-10.6)
[2021-12-16] MEDS ORDERED: methylPREDNISolone SOD SUCCI 125 MG/2 ML VIAL IV ONE (14:00)
[2021-12-16] MEDS: HYDROcodone/APAP 5-325MG 1 EACH TAB PO PRN ×2 (15:24→20:44)
--- NOTE | 2021-12-16 16:01 | P.PN ---
Subjective Progress Note Date: 12/16/21 Principal diagnosis: Aortic valve replacement Patient is a 66-year-old male for history of diabetes, hypertension, dyslipidemia, FRANCISCO, tobacco abuse, coronary artery disease with a totally occluded LAD status post stenting at [facility], and severe aortic stenosis who presented for elective aortic valve replacement. 12/16/2021: Patient was having some increased difficulty in breathing today. He currently was put back on CPAP device. Patient was seen by pulmonary team. Chest x-ray was performed showing possibly increased right-sided lateral fusion. Patient underwent a thoracentesis by pulmonary team today. 1450 mL bloody fluid was removed without complication. Patient currently is denying any nausea vomiting fever chills. A vallecillo still reports pain at sternotomy site. Patient denies any hematochezia or melena Objective - Vital Signs Vital signs: Vital Signs Temp 98.3 F 12/16/21 13:00 Pulse 67 12/16/21 15:48 Resp 17 12/16/21 15:00 BP 108/48 12/16/21 15:00 Pulse Ox 96 12/16/21 15:00 FiO2 40 12/16/21 13:00 Intake & Output 12/15/21 12/16/21 12/16/21 18:59 06:59 18:59 Intake Total 184.222 400 Output Total 151 536 4396 Balance -130.778 50 -3400 Weight 119.3 kg Intake: IV 156 0 Pressure Bag 0.9 Sodium 6 Chloride Sodium Chloride 0.9% 1, 150 0 000 ml @ 20 mls/hr IV . Q24H SIL[facility]ANO Rx#:[id number] Intake, IV Titration 28.222 Amount Insulin Regular 100 unit 28.222 In Sodium Chloride 0.9% 100 ml @ Per Protocol IV .Q0M SILVANO Rx#:[id number] Oral 400 Output: Drainage 2900 Right side thoracentesis 2900 Urine 315 350 450 Post Void Residual 50 Other: Voiding Method Indwelling Catheter Urinal Urinal # Voids 0 1 ABP, PAP, CO, CI - Last Documented Arterial Blood Pressure 119/42 Pulmonary Artery Pressure 27/10 Cardiac Output 8.1 Cardiac Index 3.6 - Exam Constitutional: No acute distress, on room air HEENT: Pupils equally reactive to light, atraumatic, normocephalic. Lungs: Bilaterally diminished air entry Cardiovascular: S1-S2 normal Abdominal: Soft, nontender, no guarding, rebound or rigidity Extremities: No cyanosis or clubbing Neuro: No focal neurological signs alert - Labs CBC & Chem 7: 12/16/21 11:48 12/16/21 05:15 Labs: Abnormal Lab Results - Last 24 Hours (Table) 12/15/21 12/15/21 12/16/21 Range/Units 16:43 21:04 05:15 RBC 2.60 L (4.30-5.90) m/uL Hgb 7.8 L (13.0-17.5) gm/dL Hct 24.6 L (39.0-53.0) % MCHC (31.0-37.0) g/dL Plt Count 115 L (150-450) k/uL Lymphocytes # 0.9 L (1.0-4.8) k/uL Sodium (137-145) mmol/L Potassium (3.5-5.1) mmol/L BUN (9-20) mg/dL Creatinine (0.66-1.25) mg/dL Glucose (74-99) mg/dL POC Glucose (mg/dL) 127 H 259 H (75-99) mg/dL Total Protein (6.3-8.2) g/dL 12/16/21 12/16/21 12/16/21 Range/Units 05:15 07:06 11:48 RBC 2.68 L (4.30-5.90) m/uL Hgb 7.9 L (13.0-17.5) gm/dL Hct 25.7 L (39.0-53.0) % MCHC 30.8 L (31.0-37.0) g/dL Plt Count 130 L (150-450) k/uL Lymphocytes # (1.0-4.8) k/uL Sodium 136 L (137-145) mmol/L Potassium 5.2 H (3.5-5.1) mmol/L BUN 31 H (9-20) mg/dL Creatinine 1.35 H (0.66-1.25) mg/dL Glucose 163 H (74-99) mg/dL POC Glucose (mg/dL) 166 H (75-99) mg/dL Total Protein 5.7 L (6.3-8.2) g/dL 12/16/21 Range/Units 11:57 RBC (4.30-5.90) m/uL Hgb (13.0-17.5) gm/dL Hct (39.0-53.0) % MCHC (31.0-37.0) g/dL Plt Count (150-450) k/uL Lymphocytes # (1.0-4.8) k/uL Sodium (137-145) mmol/L Potassium (3.5-5.1) mmol/L BUN (9-20) mg/dL Creatinine (0.66-1.25) mg/dL Glucose (74-99) mg/dL POC Glucose (mg/dL) 172 H (75-99) mg/dL Total Protein (6.3-8.2) g/dL Assessment and Plan (1) CAD (coronary artery disease) Current Visit: Yes Status: Acute Code(s): I25.10 - ATHSCL HEART DISEASE OF [place] CORONARY ARTERY W/O ANG PCTRS SNOMED Code(s): 23775366 Plan: Type 2 diabetes - Patient is now tolerating an oral diet. His been transitioned off of insulin drip and is now on his home insulin regimen continue with Levemir 22 units twice daily, 10 units prandial insulin as well as sliding scale coverage. - Continue with tight glycemic control - Most recent A1c 6.6 Acute kidney injury -Patient's creatinine has increased to 1.3. Monitor urine output. Hold diuretics today. Hyperkalemia -Secondary to above. Monitor Obstructive sleep apnea - CPAP at bedtime Anemia -Patient's anemia worse today. Today 7.8 and repeat 7.9. -No signs of any active bleeding. We'll defer transfusion to cardiology and cardiothoracic team. Hypertension -Patient is now off of pressors. Continue to monitor blood pressure Status post aortic valve replacement for aortic stenosis - Per CT surgery -On amiodarone CAD status post LAD stent -Continue aspirin, Plavix, statin, metoprolol, . Cardiology is on board. DVT prophylaxis: Heparin subcu GI prophylaxis: Protonix
[2021-12-16 16:05] LABS: Glucose,Whole Blood 290 mg/dL (75-99)
[2021-12-16 20:35] LABS: Glucose,Whole Blood 218 mg/dL (75-99)
[2021-12-16] MEDS: MELATONIN 3 MG TABLET PO SCH (20:38)
[2021-12-16] MEDS: SENNOSIDES-DOCUSATE SODIUM 1 EACH TAB PO SCH (20:38)
[2021-12-17] MEDS: HEPARIN SODIUM,PORCINE/PF 5,000 UNIT/0.5 ML SYRINGE SQ SCH ×4 (00:06→23:08)
[2021-12-17 06:51] LABS: Glucose,Whole Blood 125 mg/dL (75-99)
[2021-12-17] MEDS: INSULIN ASPART (NovoLOG) 100 UNIT/ML VIAL SQ SCH ×7 (06:55→20:14)
[2021-12-17] MEDS: PANTOPRAZOLE 40 MG TABLET PO SCH (06:58)
[2021-12-17] MEDS: FERROUS SULFATE 325 MG TAB PO SCH ×2 (06:58→16:07)
[2021-12-17] MEDS: ASCORBIC ACID 500 MG TAB PO SCH ×2 (06:58→16:07)
[2021-12-17] MEDS: INSULIN DETEMIR (LEVEMIR) 100 UNIT/ML SYR SQ SCH ×2 (06:59→20:14)
[2021-12-17 07:31] LABS: HCT 24.8 % (39.0-53.0); HGB 7.8 gm/dL (13.0-17.5); Hypochromasia Slight; MCH 29.6 pg (25.0-35.0); MCHC 31.3 g/dL (31.0-37.0); MCV 94.7 fL (80.0-100.0); Mean Platelet Volume 8.7; Platelet Count 186 k/uL (150-450); RBC 2.62 m/uL (4.30-5.90); RDW 14.8 % (11.5-15.5)
--- NOTE | 2021-12-17 07:48 | P.PN ---
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 Vaccinated against Covid. POD #4 aortic valve replacement using a 23 mm Inspiris pericardial bioprosthesis, exclusion of left atrial appendage using a 35 mm AtriClip, sternal closure with pineal cable and Tritium plating system, intraoperative transesophageal echocardiogram and epi-aortic scanning Postoperative acute blood loss anemia and thrombocytopenia, expected given the hemodilution and cardiopulmonary bypass pump Acute kidney injury, likely due to medications Right pleural effusion, status post drainage of 1.45 L bloody fluid 12/16/[address] Song The patient was seen and examined this morning sitting up in a recliner in the intensive care unit in breakfast. States pain is controlled, denies shortness of breath. States he had a better night last night. Had right sided thoracentesis yesterday with removal of 1.45L bloody fluid. Remains in sinus rhythm, hemodynamically stable. Attempting incentive spirometry, achieving 1000 mL. He did ambulate in the hallway yesterday with assistance. Objective - Vital Signs Vital signs: Vital Signs Temp 98.4 F 12/17/21 04:00 Pulse 63 12/17/21 07:00 Resp 24 12/17/21 07:00 BP 105/54 12/17/21 07:00 Pulse Ox 97 12/17/21 07:00 FiO2 40 12/17/21 02:00 Intake & Output 12/16/21 12/17/21 12/17/21 18:59 06:59 18:59 Intake Total 280 Output Total 3550 875 Balance -3550 -595 Weight 117.9 kg Intake: Oral 280 Output: Drainage 2900 Right side thoracentesis 2900 Urine 600 875 Post Void Residual 50 Other: Voiding Method Urinal Urinal # Voids 1 ABP, PAP, CO, CI - Last Documented Arterial Blood Pressure 119/42 Pulmonary Artery Pressure 27/10 Cardiac Output 8.1 Cardiac Index 3.6 - Exam CONSTITUTIONAL: Appears comfortable, sitting up in a recliner eating breakfast in no acute distress RESPIRATORY: Lungs sounds diminished bilaterally in the bases. Respirations even, nonlabored. Currently on 3LPM NC with oxygen saturation 96%. Able to achieve 1000 mL on incentive spirometry. Strong nonproductive cough. CARDIOVASCULAR: S1, S2 present. Regular rate and rhythm, sinus rhythm on telemetry. Sternum stable. Palpable peripheral pulses bilaterally. No edema present. No calf pain or tenderness noted. Heart hugger in place with patient demonstrating appropriate use. Antiembolism stockings, SCDs present. GASTROINTESTINAL: Abdomen soft, nontender, nondistended, obese. Active bowel sounds present 4 quadrants. Tolerating diet. Positive flatus GENITOURINARY: Continues to void 100-200mL at a time, 1275 mL in the last 24 hours INTEGUMENTARY: Skin is warm and dry with evidence of good perfusion. Anterior chest incision well approximated and covered with dry intact dressing NEUROLOGIC: Cranial nerves II through XII intact MUSKULOSKELETAL: Able to move all extremities, strength equal bilaterally PSYCHIATRIC: Alert and oriented to person place and time, appropriate affect, intact judgment and insight INVASIVE LINES AND TUBES: A/V epicardial pacemaker wires present, grounded - Allied health notes Allied health notes reviewed: nursing - Labs CBC & Chem 7: 12/17/21 06:56 12/17/21 06:56 Labs: Abnormal Lab Results - Last 24 Hours (Table) 12/16/21 12/16/21 12/16/21 Range/Units 11:48 11:57 16:02 WBC (3.8-10.6) k/uL RBC 2.68 L (4.30-5.90) m/uL Hgb 7.9 L (13.0-17.5) gm/dL Hct 25.7 L (39.0-53.0) % MCHC 30.8 L (31.0-37.0) g/dL Plt Count 130 L (150-450) k/uL POC Glucose (mg/dL) 172 H 290 H (75-99) mg/dL 12/16/21 12/17/21 12/17/21 Range/Units 20:33 06:50 06:56 WBC 13.0 H (3.8-10.6) k/uL RBC 2.62 L (4.30-5.90) m/uL Hgb 7.8 L (13.0-17.5) gm/dL Hct 24.8 L (39.0-53.0) % MCHC (31.0-37.0) g/dL Plt Count (150-450) k/uL POC Glucose (mg/dL) 218 H 125 H (75-99) mg/dL - Imaging and Cardiology Chest x-ray: image reviewed Assessment and Plan Assessment: 1. Severe aortic valve stenosis, status post aortic valve replacement 2. 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 History hypertension, currently hypotensive on low-dose levo 4. Hyperlipidemia, treated, cholesterol 154, LDL 62, triglycerides 292 5. Obesity 6. Obstructive sleep apnea with home CPAP use 7. Insulin-dependent diabetes, preoperative hemoglobin A1c 6.6% 8. Previous tobacco dependence 9. Mild COPD, preoperative FEV1 61% of predicted 10. Vaccinated against Covid. 11. Postoperative acute blood loss anemia and thrombocytopenia, expected 12. Acute kidney injury 13. Right pleural effusion, S/P thoracentesis with removal of 1.45L bloody fluid Plan: 1. Continue aspirin, statin, Plavix, beta brooke. Will increase beta brooke therapy as tolerated 2. Wean O2 as tolerated. Encourage incentive spirometry use 10 times every hour while awake. Bronchodilators, CPAP per pulmonology 3. Increase activity, ambulate as tolerated. PT/OT/cardiac rehab following 4. Will monitor daily labs and x-rays. Electrolyte replacement per protocol. No lasix today 5. GI/DVT prophylaxis 6. Pain control with current medication regimen. Toradol discontinued due to kidney function 7. Insulin management per primary care service 8. May bladder scan and straight cath for greater than 300 mL residual 9. Strict accurate intake and output. Daily weights 10. [facility] when bed available 11. More recommendations to follow
[2021-12-17 07:57] LABS: Calcium 8.9 mg/dL (8.4-10.2); Potassium 5.2 mmol/L (3.5-5.1)
--- NOTE | 2021-12-17 08:02 | P.PN ---
Subjective HISTORY OF PRESENTING ILLNESS This is a 66-year-old gentleman with history of hypertension, diabetes, obesity and hyperlipidemia with history of ischemic heart disease and stent placement to the LAD done at [facility]. Patient has been having exertional dyspnea and was noted to have moderate to severe aortic stenosis. Recent evaluation showed a mean gradient of 40 mmHg across the aortic valve and also moderate mitral regurgitation. Cardiac catheterization showed mild in- stent stenosis of the LAD with total occluded distal LAD. Patient underwent aortic valve replacement. Patient is currently extubated. Patient was anemic requiring 2 units of blood transfusion. Waiting for the follow-up CBC. Complaints of chest discomfort and some shortness of breath. Doesn't appear to be in acute distress. His cardiac output was in the range of 7.2 L. No significant arrhythmias. Overall patient seemed to be progressing well. Patient apparently has been having some coughing spells associated with near- syncope. However this is not associated with bradycardia and patient has and uses pacemaker. Continue monitor his heart rhythm. Rule out any bradyarrhythmias. Rest of the management to be continued continued including incentive spirometry 12/15 Patient seen and examined. Patient asking for some pain medications secondary to the sternotomy however pain medications are somewhat relieving it. Denies any nausea or vomiting. Heart rates somewhat elevated when he gets up and walks around however noted to be sinus rhythm. Beta brooke was increased. 12/16 Patient seen and examined. Patient still having some pain around the sternotomy site. He was placed on Toradol yesterday however mild increasing creatinine. Hemoglobin down somewhat to 7.8 today. No hematochezia or melena. He has been using his BiPAP overnight and also felt somewhat short of breath this morning using it this morning. 12/17 Patient seen and examined. Patient states he is doing "okay ". Hemoglobin relatively stable, creatinine from 1.3-1.2. No chest pain or pressure. States feels somewhat better than the day before. PHYSICAL EXAMINATION Vital signs reviewed. CONSTITUTIONAL: No apparent distress. HEENT: Head is normocephalic. Pupils are equal, round. Sclerae anicteric. Mucous membranes of the mouth are moist. No JVD. No carotid bruit. CHEST EXAMINATION: Lungs are clear to auscultation. No chest wall tenderness is noted on palpation or with deep breathing. HEART EXAMINATION: Regular rate and rhythm. S1, S2 heard. No murmurs, gallops or rub. ABDOMEN: Soft, nontender. Positive bowel sounds. EXTREMITIES: 2+ peripheral pulses, no lower extremity edema and no calf tenderness. NEUROLOGIC EXAMINATION: Patient is awake, alert and oriented x3. ASSESSMENT 1. Severe aortic stenosis status post surgical aortic valve replacement 2. 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 Hypertension 4. Blood loss anemia and thrombocytopenia 5. Obesity 6. Diabetes mellitus type 2 7. Sinus tachycardia Plan: Continue with aspirin, Plavix. Continue metoprolol. Monitor hemoglobin. May need dose of Lasix however continues to improve with his kidney function and monitor closely. Continue supportive care. Objective - Vital Signs Vital signs: Vital Signs Temp 98.4 F 12/17/21 04:00 Pulse 63 12/17/21 07:00 Resp 24 12/17/21 07:00 BP 105/54 12/17/21 07:00 Pulse Ox 97 12/17/21 07:00 FiO2 40 12/17/21 02:00 Intake & Output 12/16/21 12/17/21 12/17/21 18:59 06:59 18:59 Intake Total 280 Output Total 3550 875 Balance -3550 -595 Weight 117.9 kg Intake: Oral 280 Output: Drainage 2900 Right side thoracentesis 2900 Urine 600 875 Post Void Residual 50 Other: Voiding Method Urinal Urinal # Voids 1 ABP, PAP, CO, CI - Last Documented Arterial Blood Pressure 119/42 Pulmonary Artery Pressure 27/10 Cardiac Output 8.1 Cardiac Index 3.6 - Labs CBC & Chem 7: 12/17/21 06:56 12/17/21 06:56 Labs: Abnormal Lab Results - Last 24 Hours (Table) 12/16/21 12/16/21 12/16/21 Range/Units 11:48 11:57 16:02 WBC (3.8-10.6) k/uL RBC 2.68 L (4.30-5.90) m/uL Hgb 7.9 L (13.0-17.5) gm/dL Hct 25.7 L (39.0-53.0) % MCHC 30.8 L (31.0-37.0) g/dL Plt Count 130 L (150-450) k/uL Potassium (3.5-5.1) mmol/L Chloride (98-107) mmol/L BUN (9-20) mg/dL Glucose (74-99) mg/dL POC Glucose (mg/dL) 172 H 290 H (75-99) mg/dL 12/16/21 12/17/21 12/17/21 Range/Units 20:33 06:50 06:56 WBC 13.0 H (3.8-10.6) k/uL RBC 2.62 L (4.30-5.90) m/uL Hgb 7.8 L (13.0-17.5) gm/dL Hct 24.8 L (39.0-53.0) % MCHC (31.0-37.0) g/dL Plt Count (150-450) k/uL Potassium (3.5-5.1) mmol/L Chloride (98-107) mmol/L BUN (9-20) mg/dL Glucose (74-99) mg/dL POC Glucose (mg/dL) 218 H 125 H (75-99) mg/dL 12/17/21 Range/Units 06:56 WBC (3.8-10.6) k/uL RBC (4.30-5.90) m/uL Hgb (13.0-17.5) gm/dL Hct (39.0-53.0) % MCHC (31.0-37.0) g/dL Plt Count (150-450) k/uL Potassium 5.2 H (3.5-5.1) mmol/L Chloride 108 H (98-107) mmol/L BUN 43 H (9-20) mg/dL Glucose 102 H (74-99) mg/dL POC Glucose (mg/dL) (75-99) mg/dL
--- NOTE | 2021-12-17 08:22 | XR ---
EXAMINATION TYPE: XR chest 2V DATE OF EXAM: 12/17/2021 COMPARISON: 12/16/2021 INDICATION: Post cardiac surgery TECHNIQUE: Frontal and lateral views of the chest are obtained. FINDINGS: The heart size is enlarged. The pulmonary vasculature is normal. Mild by basilar infiltrates. Present pericolic for atelectasis. Follow-up can be performed as clinica lly indicated. Small left pleural effusion is not excluded IMPRESSION: 1. Cardiomegaly. 2. Bibasilar infiltrates pericolic for atelectasis.
[2021-12-17] MEDS: IPRATROPIUM-ALBUTEROL 3 ML NEB INHALATION SCH ×4 (08:33→19:37)
[2021-12-17] MEDS: ASPIRIN 325 MG TAB PO SCH (08:38)
[2021-12-17] MEDS: MULTIVITAMINS, THERA 1 EACH TAB PO SCH (08:38)
[2021-12-17] MEDS: CLOPIDOGREL 75 MG TAB PO SCH (08:38)
[2021-12-17] MEDS: FLUoxetine HCL 10 MG CAP PO SCH (08:38)
[2021-12-17] MEDS: METOPROLOL TARTRATE 25 MG TAB PO SCH ×2 (08:38→20:15)
[2021-12-17] MEDS: ATORVASTATIN 40 MG TAB PO SCH (08:38)
[2021-12-17] MEDS: guaiFENesin 600 MG TABLET.ER PO PRN ×2 (08:56→20:14)
--- NOTE | 2021-12-17 09:25 | P.PN ---
Subjective Progress Note Date: 12/17/21 This is a 58-year-old white male patient with past medical history of morbid ob esity, diabetes mellitus, hypertension, hyperlipidemia, obstructive sleep apnea on CPAP, tobacco abuse, coronary artery disease status post LAD stenting at the [facility]. Patient had been having history of chest pain and dyspnea on exertion for the past 2-3 years. He was found to have a murmur and moderate to severe aortic valve stenosis. In addition patient was complaining of fatigue . His preop workup included a transesophageal echocardiogram and cardiac catheterization that showed preserved LV function, an estimated valve area of the aortic valve of 1 cm, and a mean gradient of 40 mmHg with moderate mitral valve regurgitation. Cardiac catheterization showed mild in-stent restenosis of the LAD, and distal LAD was 100% occluded. Patient was initially considered for transcatheter aortic valve replacement however he was found to be low surgical risk and therefore was offered surgical option for which he opted. On 12/13/2021 patient had aortic valve replacement using a 23 cm Inspirus pericardial bioprosthesis, exclusion of the left atrial appendage using a 35 mm a true clip, sternal closure with pineal cable and 3 TM plating system, and intraoperative transesophageal echocardiogram. Patient is seen in the postoperative period in the intensive care unit, he is intubated, sedated but started to emerge from anesthesia. He was initially on assist-control mode of ventilator with a rate of 12, tidal volume was 500, FiO2 100% and PEEP of 5. Postop blood gas showed pH of 7.249, pCO2 of 55.7, and pO2 of 388 and FiO2 was dropped down to 50%, we increased the rate to 22. Hemodynamically patient has been stable, he is in sinus mechanism with a rate of 77 BPM, blood pressure is 109/52, PA pressures 46/19, CVP 16, cardiac output is 7.2, and cardiac index is 3.2 with a CVP of 16-18. Currently has 0.9 normal saline at a rate of 50 ML per hour, Diprivan is at 20 mics per kilo per minute, and insulin at 60 units per hour. Patient has 2 mediastinal chest tubes in place with 70 mL of serosanguineous output, no evidence of air leak, both chest tubes are white conn ected to the same Pleur-evac and connected to the oral suction. Sternum is clean dry and intact, incision is covered with surgical dressing, AV wires are in place connected to temporary pacemaker. Postoperative chest x-ray and labs are pending. 12/14/2021, the patient is extubated and the patient is currently on 2 L of oxygen by nasal cannula. I extubated approximately 3 hours following his alegre rgery and following his arrival to the ICU. The patient was given a spelled his breathing trial as the patient adequate weaning parameters. The blood gases following a 30 minutes of spelled his breathing trial showed a component of respiratory acidosis. The patient was quite asynchronous and was not tolerating the ET tube. I made a decision to extubate the patient. Postextubation, he was placed on a BiPAP initially at the pressures of 12/5 and later on 15/5 and he was kept on BiPAP overnight. Subsequent blood gases showed improvement and acid base status and the most recent blood gases from yesterday showed a pH of 7.28 with a pCO2 of 48 and pO2 of 152 and this was done and FiO2 of 40%. This morning, he is on 2 L. Chest tubes are still in place. Chest x-ray showing cardiac regular pulmonary edema and there is no evidence of any pneumothorax. The patient is a mediastinal and left pleural chest tube. Cardiac rhythm is sinus. Derby Line-Miles catheter in place. The patient developed a hemoglobin of as low as 5.9 postop. The patient received a total of 3 units of packed RBC and th e most recent hemoglobin is at 7.4. Cardiac rhythm is sinus. He is known to have obstructive sleep apnea and the patient has been maintained on CPAP pressure of 10 cm of water outpatient. Rest of the electrolytes all stable for now. 12/15/2021, the patient remains extubated on 2 L of oxygen by nasal cannula. A chest x-ray from today showing bilateral pleural effusion more so on the right and the patient is pulling only 500 mL on his incentive spirometer. Overnight, the patient spent in the BiPAP at a pressure of 12/5 with an FiO2 of 40%. No evidence of any pneumothorax. The output from the mediastinal chest tubes are minimal and the chest tubes are going to be removed today. Sternum stable clean and intact. Cardiac rhythm is sinus. He is awake and oriented and his following commands and answering questions appropriately without any major difficulties. No focal neurological deficit. Derby Line-Miles catheter is removed. The cordis was removed today. Meanwhile, the patient's hemoglobin today is at9.1 with a white cell count of 11 and the BUN is at 17 with a creatinine of 1.0. The rest of the electrodes are all within normal limits. The patient has no specific complaints. The plan is to chest that amounts to a cardiac floor and leave the ICU today. I discussed the need for thoracentesis specially the fluid on the right remains unchanged. The patient has a moderate-sized right- sided pleural effusion. He'll be given a dose of diuretics and he'll be encouraged to use 12/16/2021, the patient's breathing is slightly more labored and the patient requested to go back on his CPAP. Currently is on a CPAP pressure of 10 cm of water and FiO2 of 40%. Chest x-ray shows improvement in the volume status. There may be some residual atelectasis and effusion the lung bases bilaterally. There is no acute abnormality. It is essentially showing postsurgical changes with sternal wires. Current pulse ox 98%. The sitting patient is sitting up on a chair while on his BiPAP. He is breathing slightly labored and is also bronchospastic and wheezy. He refused his breathing treatments yesterday. Meanwhile, he has adequate control with use of Toradol. He was given Toradol 50 mg every 6 hours for pain and the creatinine is up to 1.35 with a mean of 31. Potassium level is at 5.2. There is also a drop in hemoglobin down to 7.8. He was given a dose of Lasix yesterday and overall fluid balance over the past 24 hours has been +477 mL. Response to the Lasix was somewhat suboptimal. Alert. Awake. Cardiac rhythm is sinus. He is hemodynamically stable. No other significant events otherwise for now. Chest tubes have been removed. Tolerating diet. No nausea. No vomiting. No emesis. No altered mentation. On today's evaluation of 12/17/2021, the patient is postop day #4 and the patient with with an aortic valve replacement/bioprosthetic valve procedure. Yesterday, the patient was having considerable amount of shortness of breath. Further investigation revealed that the patient had a large right-sided pleural effusion. I performed a bedside thoracentesis and the patient had a total of 1.45 L of bloody fluid drained. Hemoglobin remains stable. Hemoglobin remains above 8. The patient had significant symptomatic relief following the procedure and the patient is currently on 2 L of oxygen by nasal cannula. No significant bronchospasm or wheezing. He was also given a total of 2 doses of IV Solu- Medrol. He is using incentive spirometer. His achieving 1000 mL of air on the incentive spirometer. Otherwise, the patient is afebrile. The patient is hemodynamically stable. The overall fluid balance shoulder the patient urinated approximately 1.2 L over the past 24 hours. Hemoglobin is at 7.8 with a white cell count of 15.0 and a platelet count of 186. TPN is a 43 with a creatinine of 1.2. No other significant events otherwise for now. He is using his BiPAP at a pressure of 14/5 cm of water with an FiO2 of 50% overnight. A repeat chest x-ray from today shows atelectatic changes small effusion the left lung base. The aeration of the right lung base improved considerably. There are postsurgical changes and some mild interstitial edema still present. Objective - Vital Signs Vital signs: Vital Signs Temp 98.6 F 12/17/21 08:00 Pulse 65 12/17/21 08:44 Resp 19 12/17/21 08:00 BP 119/65 12/17/21 08:00 Pulse Ox 96 12/17/21 08:00 FiO2 40 12/17/21 02:00 Intake & Output 12/16/21 12/17/21 12/17/21 18:59 06:59 18:59 Intake Total 280 120 Output Total 3550 875 0 Balance -3550 -595 120 Weight 117.9 kg Intake: Oral 280 120 Output: Drainage 2900 Right side thoracentesis 2900 Urine 600 875 0 Post Void Residual 50 Other: Voiding Method Urinal Urinal # Voids 1 ABP, PAP, CO, CI - Last Documented Arterial Blood Pressure 119/42 Pulmonary Artery Pressure 27/10 Cardiac Output 8.1 Cardiac Index 3.6 - Exam CONSTITUTIONAL: Appears comfortable, sitting up in a recliner eating breakfast in no acute distress RESPIRATORY: Lungs sounds diminished bilaterally in the bases. Respirations even, nonlabored. Currently on 3LPM NC with oxygen saturation 96%. Able to achieve 1000 mL on incentive spirometry. Strong nonproductive cough. CARDIOVASCULAR: S1, S2 present. Regular rate and rhythm, sinus rhythm on telemetry. Sternum stable. Palpable peripheral pulses bilaterally. No edema present. No calf pain or tenderness noted. Heart hugger in place with patient demonstrating appropriate use. Antiembolism stockings, SCDs present. GASTROINTESTINAL: Abdomen soft, nontender, nondistended, obese. Active bowel sounds present 4 quadrants. Tolerating diet. Positive flatus GENITOURINARY: Continues to void 100-200mL at a time, 1275 mL in the last 24 hours INTEGUMENTARY: Skin is warm and dry with evidence of good perfusion. Anterior chest incision well approximated and covered with dry intact dressing NEUROLOGIC: Cranial nerves II through XII intact MUSKULOSKELETAL: Able to move all extremities, strength equal bilaterally PSYCHIATRIC: Alert and oriented to person place and time, appropriate affect, intact judgment and insight INVASIVE LINES AND TUBES: A/V epicardial pacemaker wires present, grounded - Labs CBC & Chem 7: 12/17/21 06:56 12/17/21 06:56 Labs: Abnormal Lab Results - Last 24 Hours (Table) 12/16/21 12/16/21 12/16/21 Range/Units 11:48 11:57 16:02 WBC (3.8-10.6) k/uL RBC 2.68 L (4.30-5.90) m/uL Hgb 7.9 L (13.0-17.5) gm/dL Hct 25.7 L (39.0-53.0) % MCHC 30.8 L (31.0-37.0) g/dL Plt Count 130 L (150-450) k/uL Potassium (3.5-5.1) mmol/L Chloride (98-107) mmol/L BUN (9-20) mg/dL Glucose (74-99) mg/dL POC Glucose (mg/dL) 172 H 290 H (75-99) mg/dL 12/16/21 12/17/21 12/17/21 Range/Units 20:33 06:50 06:56 WBC 13.0 H (3.8-10.6) k/uL RBC 2.62 L (4.30-5.90) m/uL Hgb 7.8 L (13.0-17.5) gm/dL Hct 24.8 L (39.0-53.0) % MCHC (31.0-37.0) g/dL Plt Count (150-450) k/uL Potassium (3.5-5.1) mmol/L Chloride (98-107) mmol/L BUN (9-20) mg/dL Glucose (74-99) mg/dL POC Glucose (mg/dL) 218 H 125 H (75-99) mg/dL 12/17/21 Range/Units 06:56 WBC (3.8-10.6) k/uL RBC (4.30-5.90) m/uL Hgb (13.0-17.5) gm/dL Hct (39.0-53.0) % MCHC (31.0-37.0) g/dL Plt Count (150-450) k/uL Potassium 5.2 H (3.5-5.1) mmol/L Chloride 108 H (98-107) mmol/L BUN 43 H (9-20) mg/dL Glucose 102 H (74-99) mg/dL POC Glucose (mg/dL) (75-99) mg/dL Assessment and Plan Plan: Assessment: #1. Severe aortic valve stenosis, status post aortic valve replacement using a 23 mm is for his pericardial bioprosthesis, stage appendage exclusion, sternal closure, and intraoperative transesophageal echocardiogram on 12/13/2021 patient is postop day #4 extubated to nasal cannula. #2. Moderate severe aortic valve stenosis and history of coronary artery disease with previous stenting of the LAD #3. Acute hypoxic/hypercapnic respiratory failure, expected outcome post surgery. The patient is encountering increased shortness of breath. The patient developed a right-sided pleural effusion. The patient had a total of 1.4 L of bloody fluid drained from the right lung yesterday without any complication. Subsequently, his exercise optimizing the patient is currently on 2 L of oxygen by nasal cannula. He is using a BiPAP at a pressure of 14/5 cm of water with an FiO2 of 50%. Note that at home, the patient uses CPAP at a pressure of 10 cm. He is doing well for now. Using incentive spirometer. #4. History of smoking, preop FEV1 was 2.27 L or 70% of predicted #5. Morbid obesity with BMI 35.3 kg/m #6. Hypertension #7. Hyperlipidemia #8. Obstructive sleep apnea on CPAP #9. History of coronary artery disease with previous stenting of the LAD #10, anemia, anticipated outcome for surgery, dilutional and intraoperative blood loss and the patient received a total of 3 units of packed RBCs. The patient had a drop in hemoglobin down to 7.8 without evidence of an acute bleed. We'll continue to monitor #11 acute kidney injury suspected metastatic creatinine is at 1.3 Plan: DuoNeb nebulized treatments 4 times a day Hemoglobin is stable Renal function is stable Monitor renal function No diuretics Thoracentesis completed yesterday without any issues and a repeat chest x-ray from today showing improvement in the aeration lung bases although there is some residual atelectasis and effusion the lung bases bilaterally. monitor hemoglobin Cardiac rhythm is sinus Continue beta blockers, aspirin, Plavix and statins We'll continue to follow. We'll give the patient ICU for today.
--- NOTE | 2021-12-17 10:47 | P.PN ---
Subjective Patient was examined at bedside today accompanying of any aspirin, shortness breath or palpitations. Underwent thoracentesis yesterday removal of 1.4 L approximately. Objective - Vital Signs Vital signs: Vital Signs Temp 98.6 F 12/17/21 08:00 Pulse 69 12/17/21 09:00 Resp 21 12/17/21 09:00 BP 115/55 12/17/21 09:00 Pulse Ox 93 L 12/17/21 09:00 FiO2 40 12/17/21 02:00 Intake & Output 12/16/21 12/17/21 12/17/21 18:59 06:59 18:59 Intake Total 280 120 Output Total 3550 875 0 Balance -3550 -595 120 Weight 117.9 kg Intake: Oral 280 120 Output: Drainage 2900 Right side thoracentesis 2900 Urine 600 875 0 Post Void Residual 50 Other: Voiding Method Urinal Urinal Toilet Urinal # Voids 1 ABP, PAP, CO, CI - Last Documented Arterial Blood Pressure 119/42 Pulmonary Artery Pressure 27/10 Cardiac Output 8.1 Cardiac Index 3.6 - Exam Constitutional: Patient is awake alert oriented not in acute distress HEENT: Pupils equally reactive to light, atraumatic, normocephalic. Lungs: Bilaterally diminished air entry Cardiovascular: S1-S2 normal on the Heart Hugger with patient Abdominal: Soft, nontender, no guarding, rebound or rigidity Extremities: No cyanosis or clubbing Neuro: No focal neurological signs alert - Labs CBC & Chem 7: 12/17/21 06:56 12/17/21 06:56 Labs: Abnormal Lab Results - Last 24 Hours (Table) 12/16/21 12/16/21 12/16/21 Range/Units 11:48 11:57 16:02 WBC (3.8-10.6) k/uL RBC 2.68 L (4.30-5.90) m/uL Hgb 7.9 L (13.0-17.5) gm/dL Hct 25.7 L (39.0-53.0) % MCHC 30.8 L (31.0-37.0) g/dL Plt Count 130 L (150-450) k/uL Potassium (3.5-5.1) mmol/L Chloride (98-107) mmol/L BUN (9-20) mg/dL Glucose (74-99) mg/dL POC Glucose (mg/dL) 172 H 290 H (75-99) mg/dL 12/16/21 12/17/21 12/17/21 Range/Units 20:33 06:50 06:56 WBC 13.0 H (3.8-10.6) k/uL RBC 2.62 L (4.30-5.90) m/uL Hgb 7.8 L (13.0-17.5) gm/dL Hct 24.8 L (39.0-53.0) % MCHC (31.0-37.0) g/dL Plt Count (150-450) k/uL Potassium (3.5-5.1) mmol/L Chloride (98-107) mmol/L BUN (9-20) mg/dL Glucose (74-99) mg/dL POC Glucose (mg/dL) 218 H 125 H (75-99) mg/dL 12/17/21 Range/Units 06:56 WBC (3.8-10.6) k/uL RBC (4.30-5.90) m/uL Hgb (13.0-17.5) gm/dL Hct (39.0-53.0) % MCHC (31.0-37.0) g/dL Plt Count (150-450) k/uL Potassium 5.2 H (3.5-5.1) mmol/L Chloride 108 H (98-107) mmol/L BUN 43 H (9-20) mg/dL Glucose 102 H (74-99) mg/dL POC Glucose (mg/dL) (75-99) mg/dL Assessment and Plan Assessment: Assessment/plan #1 Type 2 diabetes - Levemir 22 units and 30 units at bedtime, 14 units prandial insulin as well as sliding scale coverage. - Continue with tight glycemic control #2 Acute kidney injury -Monitor urine output. #3 Hyperkalemia -Secondary to above. Monitor #4 Obstructive sleep apnea - CPAP at bedtime #5 Anemia -No signs of any active bleeding. Transfuse if hemoglobin less than 7 #6 Hypertension -Hemodynamically stable continue monitor #7 Status post aortic valve replacement for aortic stenosis -Continue to follow recommendations per consulting team. Continues to have Heart Hugger #8 CAD status post LAD stent -Continue aspirin, Plavix, statin, metoprolol, . Cardiology is on board. DVT prophylaxis heparin
[2021-12-17 11:50] LABS: Glucose,Whole Blood 146 mg/dL (75-99)
[2021-12-17 16:24] LABS: Glucose,Whole Blood 123 mg/dL (75-99)
[2021-12-17 20:13] LABS: Glucose,Whole Blood 177 mg/dL (75-99)
[2021-12-17] MEDS: SENNOSIDES-DOCUSATE SODIUM 1 EACH TAB PO SCH (20:15)
[2021-12-17] MEDS: MELATONIN 3 MG TABLET PO SCH (20:15)
[2021-12-17] MEDS: HYDROcodone/APAP 5-325MG 1 EACH TAB PO PRN (20:15)
[2021-12-18] MEDS: INSULIN DETEMIR (LEVEMIR) 100 UNIT/ML SYR SQ SCH (06:39)
[2021-12-18] MEDS: PANTOPRAZOLE 40 MG TABLET PO SCH (06:40)
[2021-12-18] MEDS: FERROUS SULFATE 325 MG TAB PO SCH (06:40)
[2021-12-18] MEDS: INSULIN ASPART (NovoLOG) 100 UNIT/ML VIAL SQ SCH ×4 (06:40→12:30)
[2021-12-18] MEDS: ASCORBIC ACID 500 MG TAB PO SCH (06:40)
[2021-12-18 06:41] LABS: Glucose,Whole Blood 109 mg/dL (75-99)
[2021-12-18] MEDS: IPRATROPIUM-ALBUTEROL 3 ML NEB INHALATION SCH ×2 (07:14→11:17)
[2021-12-18 07:32] LABS: HCT 22.9 % (39.0-53.0); HGB 7.5 gm/dL (13.0-17.5); Hypochromasia Slight; MCHC 32.7 g/dL (31.0-37.0); MCV 91.9 fL (80.0-100.0); Mean Platelet Volume 9.3; Platelet Count 256 k/uL (150-450); RBC 2.49 m/uL (4.30-5.90); RDW 15.7 % (11.5-15.5); WBC 10.1 k/uL (3.8-10.6)
[2021-12-18 07:49] LABS: Calcium 8.6 mg/dL (8.4-10.2); Potassium 4.9 mmol/L (3.5-5.1)
--- NOTE | 2021-12-18 07:59 | P.PN ---
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 Vaccinated against Covid. POD #5 aortic valve replacement using a 23 mm Inspiris pericardial bioprosthesis, exclusion of left atrial appendage using a 35 mm AtriClip, sternal closure with pineal cable and Tritium plating system, intraoperative transesophageal echocardiogram and epi-aortic scanning Postoperative acute blood loss anemia and thrombocytopenia, expected given the hemodilution and cardiopulmonary bypass pump Acute kidney injury, likely due to medications Right pleural effusion, status post drainage of 1.45 L bloody fluid 12/16/[address] Song The patient was seen and examined this morning sitting up in a recliner in the intensive care unit in breakfast. States pain is controlled, denies shortness of breath. Remains in sinus rhythm, hemodynamically stable. Attempting incentive spirometry, achieving 1000 mL, currently on room air. He did ambulate in the hallway yesterday and received first postop shower. Patient is requesting to go home today. No new concerns Objective - Vital Signs Vital signs: Vital Signs Temp 98.5 F 12/18/21 04:00 Pulse 60 12/18/21 07:27 Resp 16 12/18/21 07:27 BP 117/59 12/18/21 04:00 Pulse Ox 98 12/18/21 07:14 FiO2 40 12/17/21 02:00 Intake & Output 12/17/21 12/18/21 12/18/21 18:59 06:59 18:59 Intake Total 370 Output Total 0 Balance 370 Intake: Oral 370 Output: Urine 0 Other: Voiding Method Toilet Toilet # Voids 1 2 # Bowel Movements 1 ABP, PAP, CO, CI - Last Documented Arterial Blood Pressure 119/42 Pulmonary Artery Pressure 27/10 Cardiac Output 8.1 Cardiac Index 3.6 - Exam CONSTITUTIONAL: Appears comfortable, sitting up in a recliner eating breakfast in no acute distress RESPIRATORY: Lungs sounds diminished bilaterally in the bases. Respirations even, nonlabored. Currently on room air with oxygen saturation 97%. Able to achieve 1000 mL on incentive spirometry. Strong nonproductive cough. CARDIOVASCULAR: S1, S2 present. Regular rate and rhythm, sinus rhythm on telemetry. Sternum stable. Palpable peripheral pulses bilaterally. No edema present. No calf pain or tenderness noted. Heart hugger in place with patient demonstrating appropriate use. Antiembolism stockings, SCDs present. GASTROINTESTINAL: Abdomen soft, nontender, nondistended, obese. Active bowel sounds present 4 quadrants. Tolerating diet. Positive bowel movement GENITOURINARY: Continues to void INTEGUMENTARY: Skin is warm and dry with evidence of good perfusion. Anterior chest incision well approximated NEUROLOGIC: Cranial nerves II through XII intact MUSKULOSKELETAL: Able to move all extremities, strength equal bilaterally PSYCHIATRIC: Alert and oriented to person place and time, appropriate affect, intact judgment and insight INVASIVE LINES AND TUBES: A/V epicardial pacemaker wires present, grounded - Labs CBC & Chem 7: 12/18/21 06:21 12/18/21 06:21 Labs: Abnormal Lab Results - Last 24 Hours (Table) 12/17/21 12/17/21 12/17/21 Range/Units 06:56 11:49 16:22 RBC (4.30-5.90) m/uL Hgb (13.0-17.5) gm/dL Hct (39.0-53.0) % RDW (11.5-15.5) % Potassium 5.2 H (3.5-5.1) mmol/L Chloride 108 H (98-107) mmol/L BUN 43 H (9-20) mg/dL Glucose 102 H (74-99) mg/dL POC Glucose (mg/dL) 146 H 123 H (75-99) mg/dL 12/17/21 12/18/21 12/18/21 Range/Units 20:11 06:21 06:21 RBC 2.49 L (4.30-5.90) m/uL Hgb 7.5 L (13.0-17.5) gm/dL Hct 22.9 L (39.0-53.0) % RDW 15.7 H (11.5-15.5) % Potassium (3.5-5.1) mmol/L Chloride 112 H (98-107) mmol/L BUN 44 H (9-20) mg/dL Glucose (74-99) mg/dL POC Glucose (mg/dL) 177 H (75-99) mg/dL 05/31/22 Range/Units 06:39 RBC (4.30-5.90) m/uL Hgb (13.0-17.5) gm/dL Hct (39.0-53.0) % RDW (11.5-15.5) % Potassium (3.5-5.1) mmol/L Chloride (98-107) mmol/L BUN (9-20) mg/dL Glucose (74-99) mg/dL POC Glucose (mg/dL) 109 H (75-99) mg/dL - Imaging and Cardiology Chest x-ray: image reviewed Assessment and Plan Assessment: 1. Severe aortic valve stenosis, status post aortic valve replacement 2. 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 History hypertension, currently hypotensive on low-dose levo 4. Hyperlipidemia, treated, cholesterol 154, LDL 62, triglycerides 292 5. Obesity 6. Obstructive sleep apnea with home CPAP use 7. Insulin-dependent diabetes, preoperative hemoglobin A1c 6.6% 8. Previous tobacco dependence 9. Mild COPD, preoperative FEV1 61% of predicted 10. Vaccinated against Covid. 11. Postoperative acute blood loss anemia and thrombocytopenia, expected 12. Acute kidney injury, resolved 13. Right pleural effusion, S/P thoracentesis with removal of 1.45L bloody fluid Plan: 1. Continue aspirin, statin, Plavix, beta brooke. Will increase beta brooke therapy as tolerated 2. Encourage incentive spirometry use 10 times every hour while awake. Broncho dilators, CPAP per pulmonology 3. Increase activity, ambulate as tolerated. PT/OT/cardiac rehab following 4. Will monitor daily labs and x-rays. Electrolyte replacement per protocol. 5. GI/DVT prophylaxis 6. Pain control with current medication regimen. 7. Insulin management per primary care service 8. May bladder scan and straight cath for greater than 300 mL residual 9. Strict accurate intake and output. Daily weights 10. Discharge planning in progress, likely will discharge to home with home care this afternoon 11. More recommendations to follow
--- NOTE | 2021-12-18 08:24 | XR ---
EXAMINATION TYPE: XR chest 2V DATE OF EXAM: 12/18/2021 COMPARISON: Chest x-ray 12/17/2021 HISTORY: Status post cardiac surgery TECHNIQUE: Frontal and lateral views of the chest are obtained. FINDINGS: Patient is post median sternotomy and left atrial appendage clip placement, cardiac valve replacement. Heart size is increased, patient is rotated. There is no evident pneumothorax. Coronary artery calcifications are noted. Improvement in the interstitium, central vascularity noted. Prominen t lung volumes suggest underlying COPD. There are overlying artifacts. Patchy basilar density is pres ent, left hemidiaphragm remains obscured. Blunting of the costophrenic angle on the left. Aorta is de nse. IMPRESSION: Probable basilar atelectasis, difficult to exclude effusion, there is cardiomegaly, impr ovement in patient's volume status, aeration.
[2021-12-18] MEDS: ASPIRIN 325 MG TAB PO SCH (09:46)
[2021-12-18] MEDS: HEPARIN SODIUM,PORCINE/PF 5,000 UNIT/0.5 ML SYRINGE SQ SCH (09:46)
[2021-12-18] MEDS: MULTIVITAMINS, THERA 1 EACH TAB PO SCH (09:46)
[2021-12-18] MEDS: METOPROLOL TARTRATE 25 MG TAB PO SCH (09:46)
[2021-12-18] MEDS: FLUoxetine HCL 10 MG CAP PO SCH (09:46)
[2021-12-18] MEDS: CLOPIDOGREL 75 MG TAB PO SCH (09:46)
[2021-12-18] MEDS: ATORVASTATIN 40 MG TAB PO SCH (09:46)
--- NOTE | 2021-12-18 10:29 | P.PN ---
Subjective Progress Note Date: 12/18/21 Principal diagnosis: Status post aortic valve replacement. 12/15/2021, the patient remains extubated on 2 L of oxygen by nasal cannula. A chest x-ray from today showing bilateral pleural effusion more so on the right and the patient is pulling only 500 mL on his incentive spirometer. Overnight, the patient spent in the BiPAP at a pressure of 12/5 with an FiO2 of 40%. No evidence of any pneumothorax. The output from the mediastinal chest tubes are minimal and the chest tubes are going to be removed today. Sternum stable clean and intact. Cardiac rhythm is sinus. He is awake and oriented and his following commands and answering questions appropriately without any major difficulties. No focal neurological deficit. [place] catheter is removed. The cordis was removed today. Meanwhile, the patient's hemoglobin today is at9.1 with a white cell count of 11 and the BUN is at 17 with a creatinine of 1.0. The rest of the electrodes are all within normal limits. The patient has no specific complaints. The plan is to chest that amounts to a cardiac floor and leave the ICU today. I discussed the need for thoracentesis specially the fluid on the right remains unchanged. The patient has a moderate-sized right- sided pleural effusion. He'll be given a dose of diuretics and he'll be encouraged to use 12/16/2021, the patient's breathing is slightly more labored and the patient requested to go back on his CPAP. Currently is on a CPAP pressure of 10 cm of water and FiO2 of 40%. Chest x-ray shows improvement in the volume status. There may be some residual atelectasis and effusion the lung bases bilaterally. There is no acute abnormality. It is essentially showing postsurgical changes with sternal wires. Current pulse ox 98%. The sitting patient is sitting up on a chair while on his BiPAP. He is breathing slightly labored and is also bronchospastic and wheezy. He refused his breathing treatments yesterday. Meanwhile, he has adequate control with use of Toradol. He was given Toradol 50 mg every 6 hours for pain and the creatinine is up to 1.35 with a mean of 31. Potassium level is at 5.2. There is also a drop in hemoglobin down to 7.8. He was given a dose of Lasix yesterday and overall fluid balance over the past 24 hours has been +477 mL. Response to the Lasix was somewhat suboptimal. Alert. Awake. Cardiac rhythm is sinus. He is hemodynamically stable. No other significant events otherwise for now. Chest tubes have been removed. Tolerating diet. No nausea. No vomiting. No emesis. No altered mentation. On today's evaluation of 12/17/2021, the patient is postop day #4 and the patient with with an aortic valve replacement/bioprosthetic valve procedure. Yesterday, the patient was having considerable amount of shortness of breath. Further investigation revealed that the patient had a large right-sided pleural effusion. I performed a bedside thoracentesis and the patient had a total of 1.45 L of bloody fluid drained. Hemoglobin remains stable. Hemoglobin remains above 8. The patient had significant symptomatic relief following the procedure and the patient is currently on 2 L of oxygen by nasal cannula. No significant bronchospasm or wheezing. He was also given a total of 2 doses of IV Solu-Me drol. He is using incentive spirometer. His achieving 1000 mL of air on the incentive spirometer. Otherwise, the patient is afebrile. The patient is hemodynamically stable. The overall fluid balance shoulder the patient urinated approximately 1.2 L over the past 24 hours. Hemoglobin is at 7.8 with a white cell count of 15.0 and a platelet count of 186. TPN is a 43 with a creatinine of 1.2. No other significant events otherwise for now. He is using his BiPAP at a pressure of 14/5 cm of water with an FiO2 of 50% overnight. A repeat chest x-ray from today shows atelectatic changes small effusion the left lung base. The aeration of the right lung base improved considerably. There are postsurgical changes and some mild interstitial edema still present. Progress note dated 12/18/2021. This is a 66-year-old male was admitted back on December 13, and had aortic valve replacement. Today's postop day #5. The patient may be discharged home today. Has not been determined as yet. He is currently on room air. He's not receiving any IV fluids. The patient is currently an overflow patient. Today's labs show a white count of 10.1, hemoglobin 7.5, hematocrit 22.9, and platelet count 256,000. Sodium 142, potassium 4.9, chlorides 112, CO2 24, with a BUN of 44 and a creatinine of 1.09. Chest x-ray shows bibasilar atelectasis and/or effusion. There is cardiomegaly. Objective - Vital Signs Vital signs: Vital Signs Temp 98.5 F 12/18/21 04:00 Pulse 60 12/18/21 07:27 Resp 16 12/18/21 07:27 BP 117/59 12/18/21 04:00 Pulse Ox 98 12/18/21 07:14 FiO2 40 12/17/21 02:00 Intake & Output 12/17/21 12/18/21 12/18/21 18:59 06:59 18:59 Intake Total 370 Output Total 0 Balance 370 Intake: Oral 370 Output: Urine 0 Other: Voiding Method Toilet Toilet # Voids 1 2 # Bowel Movements 1 ABP, PAP, CO, CI - Last Documented Arterial Blood Pressure 119/42 Pulmonary Artery Pressure 27/10 Cardiac Output 8.1 Cardiac Index 3.6 - Exam No acute distress, oriented 3. No acute distress. Currently on room air. HEENT examination is grossly unremarkable. Neck supple. Full range of motion. No adenopathy thyromegaly or neck vein distention. Cardiovascular examination reveals regular rhythm rate. S1-S2 normal. No S3 or S4. No discernible murmur noted. Heart rate 60 bpm. Lungs reveal mostly clear breath sounds. Mild scattered basilar rhonchi. No wheezes or crackles. Rest sounds equal bilaterally. Room air resting saturation is in the high 90s. Abdomen soft bowel sounds are heard. No masses or tenderness. Extremities are intact. No cyanosis clubbing or edema. Skin is without rash or lesion. Neurologic examination is brief but nonfocal. - Labs CBC & Chem 7: 12/18/21 06:21 12/18/21 06:21 Labs: Abnormal Lab Results - Last 24 Hours (Table) 12/17/21 12/17/21 12/17/21 Range/Units 11:49 16:22 20:11 RBC (4.30-5.90) m/uL Hgb (13.0-17.5) gm/dL Hct (39.0-53.0) % RDW (11.5-15.5) % Chloride (98-107) mmol/L BUN (9-20) mg/dL POC Glucose (mg/dL) 146 H 123 H 177 H (75-99) mg/dL 12/18/21 12/18/21 12/18/21 Range/Units 06:21 06:21 06:39 RBC 2.49 L (4.30-5.90) m/uL Hgb 7.5 L (13.0-17.5) gm/dL Hct 22.9 L (39.0-53.0) % RDW 15.7 H (11.5-15.5) % Chloride 112 H (98-107) mmol/L BUN 44 H (9-20) mg/dL POC Glucose (mg/dL) 109 H (75-99) mg/dL Assessment and Plan Assessment: Postop day #5, status post aortic valve replacement with a bovine aortic valve, atrial appendage exclusion, intraoperative RAD. Routine postoperative ventilator management, with current stable ventilatory status. History of severe aortic stenosis. Right pleural effusion, status post thoracentesis with 1.4 L removed. History of previous tobacco use, and an FEV1 that was 2.27 L or 70% of predicted. Morbid obesity. Hypertension. Hyperlipidemia. Obstructive sleep apnea syndrome, currently maintained on CPAP. History of CAD with previous stenting of LAD. Postoperative anemia, expected. Plan: Plan dated 12/18/2021. The patient's doing well. The patient continues on appropriate medications including GI and DVT prophylaxis. The patient's overall chest x-ray pattern has improved. Less vascular prominence. Thoracentesis was done in 1.4 L was removed from the right pleural space. The patient is currently being considered for possible discharge home. The patient's on room air. He's not receiving any IV fluids. We will continue to follow make recommendations where appropriate. Prognosis is guarded. Time with Patient: Less than 30
--- NOTE | 2021-12-18 10:53 | P.DS ---
Providers Date of admission: 12/13/21 05:37 Expected date of discharge: 12/18/21 Attending physician: Tawana Mathis Consults: 12/13/21 16:03 Consult Physician Routine Consulting Provider: Naun Song Consult Reason/Comments: Substation Operator Transforming Consult: post cardiac surgery Do you want consulting provider notified?: Already Contacted Consult Physician Routine Consulting Provider: Nohemi Toledo Consult Reason/Comments: med mgmt Do you want consulting provider notified?: Already Contacted Consult Physician Routine Consulting Provider: Zak Costa Consult Reason/Comments: Drying Frame Operator Consult: post cardiac surgery Do you want consulting provider notified?: Yes Primary care physician: IKE JONES DO Hospital Course: FINAL DIAGNOSIS: 1. Severe aortic valve stenosis 2. 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 Hypertension 4. Hyperlipidemia, treated, cholesterol 154, LDL 62, triglycerides 292 5. Obesity 6. Obstructive sleep apnea with home CPAP use 7. Insulin-dependent diabetes, preoperative hemoglobin A1c 6.6% 8. Previous tobacco dependence 9. Mild COPD, preoperative FEV1 61% of predicted 10. Vaccinated against Covid 11. Postoperative acute blood loss anemia and thrombocytopenia, expected 12. Acute kidney injury, resolved 13. Right pleural effusion PRINCIPAL PROCEDURE: 1. Aortic valve replacement using a 23 mm Inspiris pericardial bioprosthesis 2. Exclusion of the left atrial appendage using a 35 mm AtriClip 3. Sternal closure with pineal cable and Tritium plating system 4. Intraoperative transesophageal echocardiogram and epi-aortic scanning 5. Right sided thoracentesis with removal of 1.45 L bloody fluid HISTORY OF PRESENT ILLNESS: This is a 66-year-old gentleman he follows on an outpatient basis with Dr. Jones for primary care and Dr. ARCHANA Bear for cardiology. He was experiencing chest pain and dyspnea on exertion, and was found to have a heart murmur with moderate to severe aortic valve stenosis. He underwent stenting for a VACCINES SOLUTIONS SPECIALIST of the LAD at [facility] and he benefited partially from the stenting, however he continued to have fatigue and some shortness of breath with exertion. He underwent workup for TAVR including RAD as well as cardiac catheterization. RAD revealed preserved systolic function, aortic valve area 1 cm, mean gradient 40 mmHg with moderate mitral valve regurgitation. His heart catheterization showed mild in-stent restenosis of the LAD, and the distal LAD was 100% occluded. He was seen in the structural heart clinic by Dr. Mathis and Dr. Hines, and the patient was felt to be low risk for surgery, therefore he was recommended to undergo surgical aortic valve replacement. The usual perioperative course was discussed in detail with the patient, all risks and benefits were explained, all questions were answered, and consent was obtained to proceed with surgery. The patient obtained dental clearance and was subsequently scheduled for surgery. HOSPITAL COURSE: The patient was brought to the hospital on 12/13/21, taken to the preoperative area, prepared in the usual fashion, and subsequently taken to the operating room where Dr. Mathis performed aortic valve replacement. Upon completion of surgery the patient was transferred to the cardiovascular intensive care unit where he was recovered and monitored hemodynamically. He was extubated, all lines, tubes, and drips were discontinued when appropriate, and transfer orders were placed for 3 S. cardiac stepdown unit, however there was no bed availability and the patient remained on ICU as a stepdown patient until discharge. His oxygen was titrated down, he continued to work with physical and occupational therapy, he was tolerating oral diet, his pain was controlled, and he was ready to be discharged to home with [facility] on postoperative day #5. He received written and verbal instruction regarding his medications, activity restrictions, signs and symptoms requiring physician notification, and follow-up appointments. Patient Condition at Discharge: Stable Plan - Discharge Summary Discharge Rx Participant: No New Discharge Prescriptions: New Ferrous Sulfate [Iron (65 MG Elemental)] 325 mg PO BID-W/MEALS #30 tab Melatonin 3 mg PO HS tab guaiFENesin [Mucinex] 1,200 mg PO Q12HR PRN tab PRN Reason: Cough Pantoprazole [Protonix] 40 mg PO AC-BRKFST #30 tab Ascorbic Acid [Vitamin C] 500 mg PO BID-W/MEALS #30 tab Sennosides-Docusate Sodium [Senokot-S] 2 each PO HS #30 tab Acetaminophen Tab [Tylenol] 650 mg PO Q4HR PRN tab PRN Reason: Fever And/ Or Pain Continue metFORMIN HCL [Glucophage] 1,000 mg PO BID FLUoxetine HCL [PROzac] 10 mg PO QAM Aspirin [Adult Low Dose Aspirin EC] 81 mg PO DAILY Insulin Aspart [NovoLOG Flexpen] 10 units SQ TID-W/MEALS PRN PRN Reason: scale Insulin Glargine,Hum.rec.anlog [Basaglar Kwikpen U-100] 45 unit SQ QAM Atorvastatin [Lipitor] 80 mg PO DAILY Clopidogrel [Plavix] 75 mg PO DAILY Multivit-Min/FA/Lycopen/Lutein [Centrum Silver Tablet] 1 each PO DAILY Albuterol Inhaler [Ventolin Hfa Inhaler] 2 puff INHALATION RT-QID PRN PRN Reason: sob Changed Metoprolol Tartrate 25 mg PO BID #60 tab Furosemide [Lasix] 20 mg PO DAILY #7 tab Discontinued Lisinopril [Prinivil] 10 mg PO BID Mupirocin [Mupirocin 2%] 1 applic NASAL BID #1 tub Discharge Medication List Aspirin [Adult Low Dose Aspirin EC] 81 mg PO DAILY 08/30/21 [History] Atorvastatin [Lipitor] 80 mg PO DAILY 08/30/21 [History] Clopidogrel [Plavix] 75 mg PO DAILY 08/30/21 [History] FLUoxetine HCL [PROzac] 10 mg PO QAM 08/30/21 [History] Insulin Aspart [NovoLOG Flexpen] 10 units SQ TID-W/MEALS PRN 08/30/21 [History] Insulin Glargine,Hum.rec.anlog [Basaglar Kwikpen U-100] 45 unit SQ QAM 08/30/21 [History] Multivit-Min/FA/Lycopen/Lutein [Centrum Silver Tablet] 1 each PO DAILY 08/30/21 [History] metFORMIN HCL [Glucophage] 1,000 mg PO BID 08/30/21 [History] Albuterol Inhaler [Ventolin Hfa Inhaler] 2 puff INHALATION RT-QID PRN 11/22/21 [History] Acetaminophen Tab [Tylenol] 650 mg PO Q4HR PRN tab 12/18/21 [Rx] Ascorbic Acid [Vitamin C] 500 mg PO BID-W/MEALS #30 tab 12/18/21 [Rx] Ferrous Sulfate [Iron (65 MG Elemental)] 325 mg PO BID-W/MEALS #30 tab 12/18/21 [Rx] Furosemide [Lasix] 20 mg PO DAILY #7 tab 12/18/21 [Rx] Melatonin 3 mg PO HS tab 12/18/21 [Rx] Metoprolol Tartrate 25 mg PO BID #60 tab 12/18/21 [Rx] Pantoprazole [Protonix] 40 mg PO AC-BRKFST #30 tab 12/18/21 [Rx] Sennosides-Docusate Sodium [Senokot-S] 2 each PO HS #30 tab 12/18/21 [Rx] guaiFENesin [Mucinex] 1,200 mg PO Q12HR PRN tab 12/18/21 [Rx] Follow up Appointment(s)/Referral(s): Alexsandra Ruiz NPC [Nurse Practitioner] - 12/26/21 1:00 pm (You will be seen in the surgeon's office behind the hospital in [facility], [address]. Office phone number is ) Rehab Abeba SIGALA,Cardiac [NON-STAFF] - 4 Weeks (You will receive a phone call in approximately 4-6 weeks for evaluation for cardiac rehab) [facility] [[facility] - ([facility] will contact you to arrange a visit. You can call them as well to let them know you are home and give them address and info for your sister home. ) IKE JONES DO [Primary Care Provider] - 12/28/21 1:00 pm Carla Bear MD [STAFF PHYSICIAN] - 01/01/22 10:00 am Tawana Mathis MD [STAFF PHYSICIAN] - 01/11/22 10:00 am Lise Coyle NPC [Nurse Practitioner] - 01/03/22 10:30 am Ambulatory/Diagnostic Orders: Complete Blood Count w/diff [LAB.AMB] Time Frame: 3 Days, Location: None Selected Comprehensive Metabolic Panel [LAB.AMB] Time Frame: 3 Days, Location: None Selected Activity/Diet/Wound Care/Special Instructions: .DISCHARGE INSTRUCTIONS: 1. No driving for 4 weeks, or until physician gives their ok. 2. The patient should sleep in their own bed, no medical bed needed. 3. Stairs are not an issue. If the bedroom is upstairs, it is advised that the patient go up at night and down in the morning for the first week. Go slowly, using handrail and take 1 step at a time. 4. SHANNON hose are to be worn for 30 days or until physician discontinues. 5. Heart hugger is to be worn 100% of the time until physician discontinues.(except when showering) 6. No lifting, pushing, or pulling more than 10 pounds for 12 weeks. The physician will advise of any restriction changes. 7. The patient is expected to continue the prescribed walking program. 8. Continue pain control per as needed orders. 9. Continue with incentive spirometry and splinting/heart hugger until otherwise directed by the physician. 10. Must shower daily using liquid antibacterial soap and a separate white washcloth for each individual incision. 11. Routine sternal incision care. No powders, lotions, ointments on incisions. No dressings are necessary on incisions unless they are draining. Dermabond tape is to remain on sternal incision until surgeon follow-up. 12. Please call surgeon/OPEN HEARTH FURNACE LABORER for temp greater than 101 F or purulent drainage from incisions. 13. You should weigh yourself daily, record and bring log with you to follow up appointments. 14. All prescriptions given by surgeon for 30 days. Refills need to be filled through banker mason/primary care physician. 15. A Red armband has been placed on the patient. It should be worn for 30 days post surgery and will be removed by the cardiac surgeons. If an ER visit is necessary, please make sure the number on the Red armband is called. 16. You have been referred to and are expected to begin Cardiac Rehab in approximately 4-6 weeks. HOME HEALTH SERVICES TO PROVIDE: RN SKILLED HOME CARE SERVICES FOR POST-OP SURGICAL PATIENTS WITH THE FOLLOWING: Coronary Artery Bypass Surgery (CABG), Mitral Valve Replacement/Repair ( MVR), Aortic Valve Replacement/Repair (AVR) RN TO CONTINUE EDUCATION FROM ``ROAD TO A HEALTH HEART PATIENT EDUCATION MANUAL (GIVEN TO PATIENT IN THE HOSPITAL) MEDICATION RECONCILIATION WITH EDUCATION NEEDED ON FIRST HOME VISIT EMPHASIZE IMPORTANCE OF WEARING BREAST SUPPORT/HEART HUGGER ENCOURAGE USE OF INCENTIVE SPIROMETER 10 X EVERY HOUR WHILE AWAKE ENCOURAGE UTILIZATION OF LOWER EXTREMITY COMPRESSION STOCKINGS/SHANNON HOSE and ELEVATE LEGS ABOVE LEVEL OF HEART WHILE AT REST. ENCOURAGE AMBULATION 3-5x/day INCREASING TOLERATES, WHILE AVOIDING EXTREMES IN TEMPERATURE FREQUENCY: RN TO OPEN THE PATIENT WITHIN 24 HOURS OF DISCHARGE FROM THE HOSPITAL WITH TELEHEALTH INSTALLED AT [facility], RN TO VISIT 2-3 X A WEEK FOR 4 WEEKS ESTABLISHED BY PATIENT NEEDS. LABORATORY: CBC, CMP TO BE DRAWN ON THE THIRD DAY HOME, (RAN STAT) FAX RESULTS TO . TELEHEALTH PARAMETERS: WEIGHT: NOTIFY MD OF WEIGHT GAIN OF 2 LBS IN 24 HOURS OR 5 LBS IN ONE WEEK HR: NOTIFY MD OF HR <55 BPM OR HR>100 BPM BP: NOTIFY MD IF BP <90/55 OR BP>140/100 O2 SAT: NOTIFY MD IF PO2<93% ON ROOM AIR SEND TELEHEALTH REPORT TO [place] MACHINIST AND CARDIOVASCULAR SURGEON THE FIRST WEEK OF CARE AND THEN BI-WEEKLY. PLEASE ADDITIONALLY COMMUNICATE ANY ABNORMALS AND NEW FINDINGS TO THE SURGEONS OFFICE. Discharge Disposition: HOME WITH HOME HEALTH SERVICES
[2021-12-18 11:24] LABS: Glucose,Whole Blood 136 mg/dL (75-99)
[2021-12-18 12:16] VITALS: BP 141/72; PULSE 59; RESP 20; TEMP 98.6
--- NOTE | 2021-12-18 14:01 | CDI ---
Documentation Clarification Form Date: 12/18/2021 01:32:22 PM From: Augustina Loomis RN CCDS Admit Date: 12/13/2021 05:37:00 AM Patient Name: Agustin Long Visit Number: [id number] Discharge Date: ATTENTION: The Clinical Documentation Specialists (CDI) and [facility] Coding Staff appreciate your assistance in clarifying documentation. Please respond to the clarification below the line at the bottom and electronically sign. The CDI & [facility] Coding staff will review the response and follow-up if needed. Please note: Queries are made part of the Legal Health Record. If you have any questions, please contact the author of this message via ITS. Dr. Tawana Mathis Right pleural effusion is documented 12/17, Thoracic Cardiovascular Surgery and patient had Aortic valve replacement, 12/13. Additional clarification is requested regarding the relationship, if any, that exists between the diagnosis and the procedure. Patients Admitting Diagnosis: Severe Aortic valve stenosis Post-Operative Diagnosis: Severe Aortic valve stenosis Procedure performed: Aortic valve replacement History/Risk Factors: 66-year-old male presents to [facility] to have elective aortic valve replacement secondary to severe aortic stenosis. Medical history: HTN, FRANCISCO and HLD. Clinical Indicators: CXR 12/16: Basilar infiltrate or pleural effusions, stable US Chest 12/16: Right pleural effusion. Pulmonary progress note 12/16: Acute hypoxic / hypercapnic respiratory failure, expected outcome post-surgery. The patient is encountering increased shortness of breath. There maybe a combination of atelectasis and or effusions chest xray. Thoracic Cardiovascular surgery progress note 12/17: Right pleural effusion, status post drainage of 1.45L bloody fluid 12/16/[address] Song. Treatment: 12/16 Thoracentesis 1.45L bloody fluid What relationship, if any, exists between the diagnosis of Right pleural effusion and the procedure: [ x] Right pleural effusion is a complication of surgical procedure [ ] Right pleural effusion is an expected outcome of the surgical procedure [ ] Right pleural effusion is related to patients co-morbid condition(s) of please specify co-morbid dxs & not a complication of the procedure [ ] Right pleural effusion has been ruled out [ ] Other please specify ____ [ ] Unable to determine (Template Last Revised: September 2020) MTDD
--- NOTE | 2021-12-18 16:35 | PN ---
PROGRESS NOTE Mr. Long underwent aortic valve replacement with tissue valve. He is doing well. Post procedure planning to be discharged. He is using incentive spirometry. He is in sinus rhythm. S1-S2 heard normally. Short systolic murmur at the base. Lungs are clear. Abdomen and lower extremity exam unchanged. Plan is to increase activity, possible discharge. Advised to continue incentive spirometry and pulmonary toilet. Prognosis remains good. He will hopefully be discharged soon. MMODL / IJN: [id number] /
== END 2021-12-18 13:35 | disposition home health service (06) | DRG 219 ==
LOC: 2ORMAIN 12-13 05:37 → 2SICU 12-13 15:15
PROVIDERS: ADMIT Surgery; ATTEND Surgery
PROC: 02L70CK Occlusion of Left Atrial Appendage with Extraluminal Device, Open Approach (ICD-10-PCS; 2021-12-13)
PROC: B24BZZ4 Ultrasonography of Heart with Aorta, Transesophageal (ICD-10-PCS; 2021-12-13)
PROC: 30233N0 Transfusion of Autologous Red Blood Cells into Peripheral Vein, Percutaneous Approach (ICD-10-PCS; 2021-12-13)
PROC: 02RF08Z Replacement of Aortic Valve with Zooplastic Tissue, Open Approach (ICD-10-PCS; principal; 2021-12-13 08:00)
PROC: 30233N1 Transfusion of Nonautologous Red Blood Cells into Peripheral Vein, Percutaneous Approach (ICD-10-PCS; 2021-12-14)
PROC: 5A09357 Assistance with Respiratory Ventilation, Less than 24 Consecutive Hours, Continuous Positive Airway Pressure (ICD-10-PCS; 2021-12-14)
PROC: 0W993ZZ Drainage of Right Pleural Cavity, Percutaneous Approach (ICD-10-PCS; 2021-12-16)
DX: I35.0 Nonrheumatic aortic (valve) stenosis (principal); J96.01 Acute respiratory failure with hypoxia; J96.02 Acute respiratory failure with hypercapnia; D62 Acute posthemorrhagic anemia; N17.9 Acute kidney failure, unspecified; J90 Pleural effusion, not elsewhere classified; J95.89 Other postprocedural complications and disorders of respiratory system, not elsewhere classified; E66.01 Morbid (severe) obesity due to excess calories; I25.10 Atherosclerotic heart disease of native coronary artery without angina pectoris; J44.9 Chronic obstructive pulmonary disease, unspecified; D69.6 Thrombocytopenia, unspecified; E78.5 Hyperlipidemia, unspecified; E78.00 Pure hypercholesterolemia, unspecified; I27.20 Pulmonary hypertension, unspecified; E11.9 Type 2 diabetes mellitus without complications; G47.33 Obstructive sleep apnea (adult) (pediatric); I10 Essential (primary) hypertension; F17.210 Nicotine dependence, cigarettes, uncomplicated; E87.5 Hyperkalemia; Z68.37 Body mass index [BMI] 37.0-37.9, adult; Z79.02 Long term (current) use of antithrombotics/antiplatelets; Z79.4 Long term (current) use of insulin; Z79.82 Long term (current) use of aspirin; Z79.899 Other long term (current) drug therapy; Z95.5 Presence of coronary angioplasty implant and graft; Z80.3 Family history of malignant neoplasm of breast
CPT/HCPCS: 36415; 71045; 71046; 76604; 80048; 80053; 82330; 82805; 83735; 85025; 85027; 85520; 85610; 85730; 86850; 86891; 86900; 86901; 86920; 88305; 88311; 94640; 94660; 94760

== ENCOUNTER → 2021-12-07 | Outpatient (CLI) | payer MEDICARE | END | disposition home or self-care (01) | LOC: LABWHC1 10:49 | PROVIDERS: ATTEND Surgery | DX: Z01.810 Encounter for preprocedural cardiovascular examination (principal) | CPT/HCPCS: 36415; 86850; 86900; 86901; 86920 ==